=== PATIENT | male | born 1930 | race Caucasian/White ===

== ENCOUNTER 2017-02-12 18:15 | Inpatient (IN) | payer MEDICARE ==
[~2017-02-12] VITALS: Ht 177.8 cm; Wt 71.3 kg
[~2017-02-12 18:15] MED LIST: ACET-2766 PO; ASPI-973 PO; CHOL100045 PO; DILT180C66 PO; DOCU-41 PO; ISOS60TA2 PO; LANS30CA PO; MULT-1073 PO; NITR0.4T SL; POLY17PO23 PO; POLY17PO6 PO; PRAV10TA2 PO; PRD5T PO; RANO500T3 PO; TAMS0.4C29 PO; TICA90TA PO
[2017-02-12 18:20] VITALS: BP 115/71; PULSE 104; RESP 24; O2SAT 96
--- NOTE | 2017-02-12 19:04 | ED.REPORT ---
HPI-Chest Pain 40 and Over Date of Service Feb 12, 2017 ED Provider: Chris Urrutia MD Pt is an 86 year old male with a hx of CAD who presents to the ED with concerns for occasional shortness or breath and intermittent chest heaviness. He reports that he had 2 MIs, in December 2015, and January 2016, with STENTs placed. 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 He began to notice that he was having a difficult time catching his breath while laying down, as well perspiring easily, onset one month ago. Pt states that his rig site engineer was notified of his canceled stress test, and suggested that he come to the emergency room. He reports that he has been experiencing daily episodes of chest heaviness, associated with shortness of breath, alleviated with nitroglycerin. He denies any fevers, cough, vomiting, diarrhea or any other symptoms. Nursing Notes Stated Complaint: CHEST PAIN, SHORTNESS OF BREATH Chief Complaint: Chest Pain Nursing Notes Reviewed: Yes Allergies: Coded Allergies: latex (Verified Allergy, Intermediate, 01/28/16) Scheduled Aspirin (Aspirin) 81 Mg Tablet 81 MG PO DAILY Cholecalciferol (Vitamin D3) (Vitamin D3) 1,000 Unit Tab.chew 1,000 UNIT PO DAILY Clopidogrel (Clopidogrel) 75 Mg Tablet 75 MG PO DAILY Docusate Sodium (Colace) 100 Mg Capsule 200 MG PO BID Garlic (Garlic) 1,000 Mg Capsule 1,000 MG PO DAILY Isosorbide MN ER (Isosorbide MN ER) 120 Mg Tab.er.24h 120 MG PO QAM Lisinopril (Lisinopril) 10 Mg Tablet 10 MG PO DAILY Multivits-Min/FA/Lycopene/Lut (Centrum Silver Tablet) 1 Each Tablet 1 EACH PO DAILY Prednisone (PredniSONE) 5 Mg Tab 5 MG PO DAILY Sennosides (Senna) 8.6 Mg Tablet 17.2 MG PO HS Tamsulosin ER (Tamsulosin ER) 0.4 Mg Cap.er.24h 0.4 MG PO DAILY Vit C/E/Zn/Coppr/Lutein/Zeaxan (Preservision Areds 2 Softgel) 1 Each Capsule 1 EACH PO BID Scheduled PRN Lansoprazole ODT (Prevacid ODT) 15 Mg Tablet 15 MG PO DAILY PRN PRN For Indigestion Nitroglycerin SL (Nitrostat) 0.4 Mg Tab.subl 0.4 MG SL Q5MIN PRN PRN For Pain General Time Seen by MD: 19:00 Chief Complaint Chest pain, Shortness of breath Hx Obtained From: Patient, Spouse Arrived By: Walk-in Sudden in Onset?: No Symptom Duration: Intermittent Location: : Chest left Quality: Heaviness Severity: Current: No pain currently Severity: Maximum: Moderate Similar Sx Previous: Yes Past Medical History 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 Bennett PCP: Dr. Reyna Stent placement: Dr. Alexa Pablo at [facility] Past Medical History Coronary artery disease including occluded RCA, and high-grade stenosis to a small medium sized, rating his artery, mild disease in the LAD-in 2010, not amenable to percutaneous management at that time, on medical management History of SVT Hyperlipidemia Hypertension Chronic anemia History of chronic polymyalgia rheumatica, on steroids, low dose 1.25/day Reports: Coronary artery disease, GERD, Hypertension Reports: Atrial fibrillation Past Surgical History Total left knee replacement Cardiac catheterization in 2010 Hemorrhoidectomy TURP Cardiac stents Reports: Angioplasty Family History Reports: Coronary artery disease Smoking History Former Smoker Social History Alcohol Use: In recovery Drug Use: Denies drug use Ambulatory Status Walker Review of Systems Constitutional: Denies: Chills, Fever, Malaise, Weakness - generalized Respiratory: Reports: Non-productive cough, Shortness of breath, Denies: Wheezing Cardiovascular: Reports: Chest pain, Denies: Syncope GI: Denies: Abdominal pain, Constipation, Diarrhea, Nausea, Vomiting Musculoskeletal: Denies: Back pain, Extremity pain, Neck pain Skin: Reports Diaphoresis Neurologic: Denies: Change LOC, Dizziness, Headache, Syncope, Weakness Complete sys rev & neg: except as marked. Physical Exam Initial Vital Signs Vital Signs (First) Date Time Temp Pulse Resp B/P Pulse Ox O2 Delivery O2 Flow Rate FiO2 02/12/17 18:20 37.0 104 24 115/71 96 02/12/17 20:21 Room Air Initial VS: Reviewed Head / Eyes: Atraumatic, Normocephalic, PERRL ENT: Mucous membranes moist, Conjunctiva normal, No scleral icterus Back: No CVA tenderness Skin: Warm, Dry, No cyanosis General/Constitutional: Awake, Alert, Well appearing, Well developed Respiratory / Chest: Atraumatic, Breath sounds NL, Breath sounds = bilat, No respiratory distress Cardiovascular: Heart rate NL, Regular rhythm, Heart sounds NL, No gallop, No murmurs, No rubs No lower extremity edema Abdomen: Atraumatic, Soft, Non-tender Interpretation & Diagnostics Lab Results Interpretation Result Diagram: 02/12/17191402/12/171914 Test 02/12/17 19:15 02/12/17 20:39 White Blood Count 6.1th/mm3 (3.8-10.1) Red Blood Count 4.31mil/mm3 (4.40-5.80) Hemoglobin 12.5g/dL (13.8-17.2) Hematocrit 37.4% (41.0-50.0) Mean Corpuscular Volume 86.8fL (81-100) Mean Corpuscular Hemoglobin 29.0pg (27.0-35.0) Mean Corpuscular Hemoglobin Concent 33.4% (32.0-37.0) Red Cell Distribution Width 15.0% (12.3-15.4) Platelet Count 167bil/L (150-400) Neutrophils (%) (Auto) 73.3% (40-74) Lymphocytes (%) (Auto) 13.9% (14-46) Monocytes (%) (Auto) 11.6% (4-12) Eosinophils (%) (Auto) 0.7% (0-5) Basophils (%) (Auto) 0.2% (0-3) Prothrombin Time 11.2sec (8.1-12.5) Prothromb Time International Ratio 1.05ratio Activated Partial Thromboplast Time 27.8sec (22.8-33.0) D-Dimer 1.05mg/L FEU (<0.50) Sodium Level 135mEq/L (134-144) Potassium Level 4.5mEq/L (3.5-5.2) Chloride Level 103mEq/L (97-108) Carbon Dioxide Level 18mmol/L (18-29) Blood Urea Nitrogen 29mg/dL (8-27) Creatinine 1.17mg/dL (0.76-1.27) Estimat Glomerular Filtration Rate 63mL/min (>59) Glucose Level 112mg/dL (60-99) Calcium Level 9.4mg/dL (8.5-10.1) Magnesium Level 2.2mg/dL (1.6-2.6) Total Bilirubin 0.3mg/dL (0.0-1.2) Aspartate Amino Transf (AST/SGOT) 31U/L (0-50) Alanine Aminotransferase (ALT/SGPT) 36U/L (0-44) Alkaline Phosphatase 73U/L (25-160) Troponin T 0.023ug/L (0.0-0.011) Pro-B-Type Natriuretic Peptide 4801pg/mL (0-486) Total Protein 6.7g/dL (6.4-8.4) Albumin 3.9g/dL (3.4-5.0) Thyroid Stimulating Hormone (TSH) 1.350uIU/mL (0.450-4.500) Hold Urine Received (Received) Lab Results Interpretation: Angiography CT: IMPRESSION: 1. No evidence for central pulmonary embolism. Prominent main pulmonary artery would be consistent with pulmonary arterial hypertension. 2. Small bilateral dependent pleural effusions are of uncertain etiology. 3. Moderate retrocardiac hiatal hernia as before. 4. Incidental hepatic remote granulomatous disease, as well as 1.7 cm anterolateral right renal cortical simple cyst. Dictated by: Ketan Manuel M.D. on 02/12/2017 at 21:07 ECG Interpretation ECG Interpretation: SR - 90 Q wave in V1-V2, unchanged from prior No ST elevation No other STT changes Time: 19:21 Interpreted by: ED physician X-Ray Chest Interpretation Chest Xray Interpretation: IMPRESSION: No acute cardiopulmonary disease. Moderate retrocardiac hiatal hernia. Dictated by: Ketan Manuel M.D. on 02/12/2017 at 19:38 Interpretation / Wet Read by: Interpret - Radiologist Re-Eval/Medical Decision Med Decision/Clinical Course 86-year-old male history of CAD with stents sent in by rig site engineer for orthopnea and intermittent chest pain for the past month. Patient reports chest pain at rest that relieves with nitroglycerin. Vital signs are stable. His troponins are mildly elevated. He has a history of elevated troponins in the past. Denies any chest pain at this time. His d-dimer is elevated CT anterior chest is pending. His BNP is elevated. I suspect he has CHF causing his orthopnea. I suspect he has likely unstable angina. I discussed with cardiology Dr. Bennett who is his primary rig site engineer who recommends admission, diuresis, heparin drip in preparation for stress test likely on Wednesday. Source of Hx: Old records Time of Eval: 20:38 Re-Evaluation/Progress Note: Informed of the need for CT scan, and admission. All questions are addressed. Consultation #1: Referral / Consult Name: Alexis Bennett MD Consulted With: Cardiology Call Returned at: 20:31 Research Methods Instructor: Will see patient, Agrees with eval, Agrees with plan Note: Suggest a heparin drip, diurese him, and get a stress test on wednesday. No transfer to at this time. Consultation #2: Referral / Consult Name: Hien Luna DO Consulted With: Hospitalist Call Returned at: 21:04 Research Methods Instructor: Will see patient, Agrees with plan, Accepts admit Counseled Regarding: Diagnosis, Lab results, Need for admission Discharge & Departure Primary Impression: Unstable angina Additional Impressions: CHF exacerbation Chest pain Disposition: ADMITTED TO HOSPITAL Discharge Condition All VS Reviewed: Yes Condition: Stable Referrals: Sera Reyna MD (PCP) Crit Care Except Billable Proc Time Spent: 30-74 minutes (40 minutes) Services Performed: Patient management by me, Time spent at bedside, Reviewing test results, Reviewing imaging, Discussing patient care, Documentation in record, Time with fam/surrogate Scribe Attestation Portions of this note were transcribed by Yudelka Phoenix. I, Dr. Urrutia personally performed the history, physical exam and medical decision-making; I reviewed and confirmed the accuracy of the information in the transcribed note. Signed by:Chato Dang, 02/12/2017 [Time]. copies to: Sera Reyna MD, Ben M MD Feb 12, 2017 19:04 [facility] [place] Feb 12, 2017 19:13
[2017-02-12 19:29] LABS: BASOPHILS % (AUTO) 0.2 % (0-3); EOSINOPHILS % (AUTO) 0.7 % (0-5); MONOCYTES % (AUTO) 11.6 % (4-12); Mean Corpuscular Volume 86.8 fL (81-100); NEUTROPHILS % (AUTO) 73.3 % (40-74); Platelet Count 167 bil/L (150-400)
--- NOTE | 2017-02-12 19:41 | DRSVH ---
PROCEDURE: X-RAY CHEST ONE VIEW, PORTABLE ([id number]) INDICATIONS: 86 year-old male with chest pain and shortness of breath. TECHNIQUE: One view of the chest was acquired. COMPARISON: [facility], CR, XR CHEST 1VW (PORTABLE), 01/28/2016, 12:15. [facility], CR, XR CHEST 1VW (PORTABLE), 01/15/2016, 15:54. [facility], CR, XR CHEST 1VW (POR TABLE), 12/29/2015, 7:15. FINDINGS: Surgical changes and devices: None. Lungs and pleura: No pleural effusions or pneumothorax. Lungs are clear. Mediastinum: Moderate hiatal hernia is again noted. Heart size is normal. There is aortic atheroscler osis. Bones and chest wall: No suspicious bony lesions. Overlying soft tissues appear unremarkable. IMPRESSION: No acute cardiopulmonary disease. Moderate retrocardiac hiatal hernia. Dictated by: Ketan Manuel M.D. on 02/12/2017 at 19:38 Approved by: Ketan Manuel M.D. on 02/12/2017 at 19:40
[2017-02-12 19:51] LABS: D-Dimer 1.05 mg/L FEU (<0.50); INR 1.05 ratio
[2017-02-12 19:54] LABS: TROPONIN T 0.023 ug/L (0.0-0.011)
[2017-02-12 20:05] LABS: Magnesium 2.2 mg/dL (1.6-2.6)
[2017-02-12 20:21] VITALS: BP 103/56; PULSE 77; RESP 20; O2SAT 95
[2017-02-12] MEDS ORDERED: CLOP75TA3 PO (20:26)
[2017-02-12] MEDS ORDERED: SENN-133 PO (20:26)
[2017-02-12] MEDS ORDERED: CHOL10008 PO (20:26)
[2017-02-12] MEDS ORDERED: VIT1CAPS46 PO (20:26)
[2017-02-12] MEDS ORDERED: GARL10002 PO (20:26)
[2017-02-12] MEDS ORDERED: ISOS120T6 PO (20:29)
[2017-02-12] MEDS ORDERED: LISI10TA PO (20:29)
[2017-02-12] MEDS ORDERED: LANS15TA3 PO (20:30)
[2017-02-12] MEDS ORDERED: CLOP75TA28 PO (20:31)
[2017-02-12] MEDS ORDERED: Heparin 25K Unit/500mL 0.45 NS 25,000 UNIT in IV Premix 1 EACH IV ONE (20:35)
[2017-02-12] MEDS ORDERED: Heparin 5,000 Unit/mL Inj IVPUSH ONE (20:35)
[2017-02-12] MEDS ORDERED: Furosemide 10 mg/mL 4 mL Inj IVPUSH ONE (20:35)
--- NOTE | 2017-02-12 21:16 | DRSVH ---
PROCEDURE: CT ANGIO CHEST PULMONARY EMBOLISM ([id number]) INDICATIONS: 86 year-old male with chest pain elevated d-dimer level. TECHNIQUE: After the administration of intravenous contrast, 2 mm thick sections acquired from the pulmonary api [place] to the posterior costophrenic angles. 3-dimensional maximum intensity projection (MIP) coronal a nd sagittal reformats were then acquired through the thorax. For radiation dose reduction, the follo wing was used: automated exposure control, adjustment of mA and/or kV according to patient size. COMPARISON: [facility], CR, XR CHEST 1VW (PORTABLE), 02/12/2017, 19:17. FINDINGS: Image quality: Excellent. Pulmonary arteries: Pulmonary arteries demonstrate no intraluminal filling defects to suggest centra l pulmonary embolism. Main pulmonary artery is prominent in caliber at 3.3 cm diameter. Lungs and pleura: Small bilateral dependent pleural effusions are present, with bibasilar compressive atelectasis. Aerated lungs otherwise appear clear. No pneumothorax. Central airways appear patent an d normal in caliber. Mediastinum: There is mild cardiomegaly, without pericardial effusion. There is moderate coronary ar jerri atherosclerosis. No mediastinal or hilar adenopathy. Thoracic aorta is normal in caliber and en hancement. Esophagus is normal in caliber, with a moderate hiatal hernia. Bones and chest wall: No suspicious bony lesions. Ribs and thoracic spine appear intact throughout. Thyroid gland is normal in size. No axillary or supraclavicular adenopathy. Abdomen: Scattered punctate hepatic granulomas are present. 1.7 cm anterolateral right renal cortical exophytic simple cyst is incidentally noted. IMPRESSION: 1. No evidence for central pulmonary embolism. Prominent main pulmonary artery would be consistent wi th pulmonary arterial hypertension. 2. Small bilateral dependent pleural effusions are of uncertain etiology. 3. Moderate retrocardiac hiatal hernia as before. 4. Incidental hepatic remote granulomatous disease, as well as 1.7 cm anterolateral right renal corti alirio simple cyst. Dictated by: Ketan Manuel M.D. on 02/12/2017 at 21:07 Approved by: Ketan Manuel M.D. on 02/12/2017 at 21:15
[2017-02-12 21:19] VITALS: BP 102/65; PULSE 77; RESP 20; O2SAT 95
[2017-02-12] MEDS ORDERED: Heparin 5,000 Unit/mL Inj IVPUSH PRN (21:20)
[2017-02-12] MEDS ORDERED: Atropine 1 mg/10 mL (Code) Syringe IVPUSH PRN (21:20)
[2017-02-12] MEDS ORDERED: Heparin 25K Unit/500mL 0.45 NS 25,000 UNIT in IV Premix 1 EACH IV SCH (21:20)
[2017-02-12] MEDS ORDERED: Senna-Docusate 8.6-50 mg Tablet PO PRN (21:20)
[2017-02-12] MEDS ORDERED: Polyethylene Glycol (PEG) 17 Gm Powder PO PRN (21:20)
[2017-02-12 21:27] VITALS: BP 151/66; PULSE 75; RESP 20
[2017-02-12 23:02] VITALS: BP 96/65; PULSE 75; RESP 16; O2SAT 95
--- NOTE | 2017-02-12 23:43 | PCM.HPMED ---
Subjective Date of Service Feb 12, 2017 Primary Provider: Admitting Physician: Hien Luna DO Primary Care Physician: Sera Reyna MD Attending Physician: Hien Luna DO Admit Status: From the Emergency Department, Full Admit, [facility] Telemetry Chief Complaint: Orthopnea. . History of Present Illness: Nayan Nuñez is an 86-year-old male with past medical history significant for CAD status post stenting 4, hypertension, hyperlipidemia, moderate calcific aortic stenosis who presented to [facility] emergency Department at the direction of his knife changer Dr. Bennett for concerns regarding orthopnea and worsening shortness of breath. The patient reports that he had 2 MIs, in December 2015, and January 2016, with stenting 4. He continued to have unstable angina after recent stenting and saw Dr. Bennett and 10/2016, and had a stress test scheduled for 02/15/2017. He reports that he received a reminder phone call with instructions regarding his upcoming stress test where he relayed that he would likely be unable to have the test performed as he is unable to lie flat. As a result, Dr. Bennett recommended that the patient go to the emergency department and be evaluated for CHF, diuresed, and started on a cardiac heparin drip. The patient reports that he has had dyspnea on exertion and increasing orthopnea over the last 1 month. He occasionally has shortness of breath at rest. He also has accompanying paroxysmal nocturnal dyspnea, chronic productive cough of white sputum, diaphoresis, and mild lower extremity edema that has not worsened. He reports that he has been experiencing daily episodes of chest heaviness with associated shortness of breath that is alleviated with nitroglycerin. Of note, he has also noticed mid back/subscapular pain 1-2 weeks. He denies headache, acute vision changes, sore throat, chest pain, shortness of breath, abdominal pain, nausea, vomiting, dysuria or diarrhea. He endorses chronic constipation, chronic postnasal drip, intermittent acid reflux , and occasional dysphagia. The patient had some conversational dyspnea during the beginning of our interview after going to the bathroom. Vital signs in the ED: Temperature 37.0. Pulse 104. Respiratory rate 24. Blood pressure 115/71. Pulse ox 96% on room air. He was given in the ED furosemide IV 40 mg 1 and started on cardiac heparin drip at Dr. Bennett's recommendation. PCP is Dr. Reyna. Ditching Machine Engineer is Dr. Bennett. . Review of Systems: A comprehensive review of systems was conducted with the patient and found to be negative except as above in the History of Present Illness. . Allergies Coded Allergies: latex (Verified Allergy, Intermediate, 01/28/16) Home Medications Aspirin 81 mg daily. Clopidogrel 75 mg daily. Colace 200 mg twice a day. Garlic 1000 mg daily. Isosorbide mononitrate 60 mg daily. Lansoprazole 15 mg daily as needed for acid reflux. Lisinopril 10 mg daily. Multivitamin daily. Nitroglycerin 0.4 mg sublingual every 5 minutes as needed for chest pain. Prednisone 5 mg daily. Senna 17.2 mg daily at bedtime. Tamsulosin 0.4 mg daily. Preservision 1 tablet twice a day. Vitamin D3 1000 units daily. . PMH 1. Coronary artery disease status post stenting x 4 (RCA and ramus intermedius) . 2. History of SVT. 3. Hyperlipidemia. 4. Hypertension. 5. Chronic iron deficiency anemia. 6. Polymyalgia rheumatica on prednisone. 7. GERD. 8. Paroxysmal atrial fibrillation. 9. Moderate calcific aortic stenosis valve area 1.1 cm2. 10. Chronic constipation. 11. Internal hemorrhoids. 12. Macular degeneration. . Surgical History 1. Total left knee replacement. 2. Cardiac catheterization in 2010. 3. Hemorrhoidectomy. 4. TURP. 5. Cardiac stent placement by Dr. Alexa Pablo at [facility] 6. Cardiac Angioplasty. . Family History Father who of DC at 51 years old. Mother who of unknown cancer in her 80's. Sister who is healthy in her 90's. Two brother's who of heart disease and irregular heart beat in his 80's. . Social History Hx Alcohol Use: Yes (occasional glass of wine or a beer) Hx Substance Use: No Hx Tobacco Use: Yes (1/2 PPD x 20 years, quit in 1967) Smoking Status: Former Smoker Additional Information He has been for 65 years. He has one daughter and one son. He is a and was in the [employer] x 4 years. He worked in the [employer] business. . Exam Vital Signs Vital Sign - Last Date Time Temp Pulse Resp B/P Pulse Ox O2 Delivery O2 Flow Rate FiO2 02/12/17 21:27 37.4 75 20 151/66 Room Air 02/12/17 21:19 95 Exam General: Elderly gentleman lying in bed and in no acute distress, well-developed , well-nourished, appropriately interactive HEENT: Normocephalic, atraumatic. External ears without defect. Pupils equal, round, and reactive to light. Anicteric sclerae, moist conjunctivae, and no lid lag. Oropharynx free of erythema and cobble stoning with moist mucosa. Neck: Supple with full range of motion. No jugular venous distension. No bruits. No lymphadenopathy or thyromegaly. Cardiovascular: Heart sounds distant, regular rate and rhythm with soft systolic murmur at LUSB. No rubs or gallops appreciated. Pulmonary: Clear to auscultation bilaterally with fine crackles at bases bilaterally. No wheezes or rhonchi. Normal respiratory effort with no use of accessory muscles. Abdomen: Soft, nontender, nondistended, bowel sounds present. No hepatosplenomegaly or masses appreciated. Extremities: No clubbing or cyanosis. Mild pitting edema bilaterally to mid pretibial area. Skin: Normal temperature, turgor, and texture; no rash, ulcers, or subcutaneous nodules appreciated. Neurological: Cranial nerves grossly intact. Normal muscle strength, tone, and bulk. Reflexes, coordination, and sensory function within normal limits. Known gait impairment and uses an FWW. Psychiatric: Normal mood and affect. Alert and oriented to person, place, and time. . Lab and Diagnostics Labs Item Value Date Time Prothrombin Time 11.2 sec 02/12/171914 Prothromb Time International Ratio 1.05 ratio 02/12/171914 Activated Partial Thromboplast Time 27.8 sec 02/12/171914 D-Dimer 1.05 mg/L FEU H 02/12/171914 Item Value Date Time Calcium Level 9.4 mg/dL 02/12/171914 Magnesium Level 2.2 mg/dL 02/12/171914 Total Bilirubin 0.3 mg/dL 02/12/171914 Aspartate Amino Transf (AST/SGOT) 31 U/L 02/12/171914 Alanine Aminotransferase (ALT/SGPT) 36 U/L 02/12/171914 Alkaline Phosphatase 73 U/L 02/12/171914 Troponin T 0.023 ug/L H 02/12/171914 Pro-B-Type Natriuretic Peptide 4801 pg/mL H 02/12/171914 Total Protein 6.7 g/dL 02/12/171914 Albumin 3.9 g/dL 02/12/171914 Result Diagram: 02/12/17191402/12/171914 X-Rays, CTs and MRIs X-RAY CHEST ONE VIEW, PORTABLE IMPRESSION: No acute cardiopulmonary disease. Moderate retrocardiac hiatal hernia. Dictated by: Ketan Manuel M.D. on 02/12/2017 at 19:38 CT ANGIO CHEST PULMONARY EMBOLISM IMPRESSION: 1. No evidence for central pulmonary embolism. Prominent main pulmonary artery would be consistent with pulmonary arterial hypertension. 2. Small bilateral dependent pleural effusions are of uncertain etiology. 3. Moderate retrocardiac hiatal hernia as before. 4. Incidental hepatic remote granulomatous disease, as well as 1.7 cm anterolateral right renal cortical simple cyst. Dictated by: Ketan Manuel M.D. on 02/12/2017 at 21:07 . 12-lead ECG EKG: Sinus rhythm, heart rate 90, borderline normal axis, IVCD, otherwise normal intervals, poor R-wave progression, probable LBBB, Q waves in leads V1-2 , no acute ischemic changes such as ST elevation or depression. . Cardiac Echo Impressions Previous Echocardiogram Interpretation Summary 12/31/2015: 1) Upper normal left ventricular size wtih low normal function (EF about 50%). 2) Hypokinesis of the posterolateral wall, mid lateral wall, and basal inferior wall. 3) Normal right ventricular size and function. 4) Moderate calcific aortic stenosis. (mean gradient 16mmHg, valve area 1.1cm2). 5) No prior Echo available for comparison. Reading Physician:PM . Assessment & Plan Nayan Nuñez is an 86-year-old male with past medical history significant for CAD status post stenting 4, hypertension, hyperlipidemia, moderate calcific aortic stenosis who presented to [facility] emergency Department at the direction of his knife changer Dr. Bennett for concerns regarding orthopnea and worsening shortness of breath. 1. Acute new onset congestive heart failure, present on admission. Active. - The patient presented with dyspnea on exertion and worsening orthopnea x 1 month. - CTA demonstrated no evidence for central pulmonary embolism but prominent main pulmonary artery consistent with pulmonary arterial hypertension and small bilateral dependent pleural effusions, as above. - Chest x-ray read as no acute cardiopulmonary findings, however, appears to be mild cephalization consistent with pulmonary edema (reviewed by admitting team on admission) - Ordered echocardiogram to asses for CHF or worsening valvular disease as he does have history of moderate calcific aortic stenosis valve area 1.1 cm2. - EKG demonstrated sinus rhythm without signs of ischemia (reviewed by admitting team on admission)s - Initial troponin slightly elevated at 0.023. Repeat serial troponins x 3. - BNP 4801. - Continue diuresis with Lasix IV 40 mg daily. Transition to BID if daily tolerated depending on I&Os - Continue lisinopril 10 mg daily. - Ordered daily standing weights, strict I&O's, and 2 L fluid restriction. If patient has new onset CHF will need to be provided CHF teaching. - Consider starting a beta neha once CHF stabilizes 2. Unstable angina, not present on admission. Active. - Cardiac risk factors include: Previous DC, CAD, hypertension, hyperlipidemia, gender, age, former smoker. - Initial troponin slightly elevated at 0.023. Repeat serial troponins x 3. - Continue to monitor on telemetry. - Continue Isosorbide mononitrate 60 mg daily and dual antiplatelet therapy. - Ordered nitroglycerin and morphine as needed for chest pain. - Ordered EKG PRN for chest pain. - Started cardiac heparing gtt at recommendation of the patient's knife changer Dr. Bennett. - Ordered nuclear medicine stress test for 02/15/2017at recommendation of the patient's knife changer Dr. Bennett. Chronic problems: 3. Coronary artery disease status post stenting, present on admission. Presumed stable. - Continue dual antiplatelet therapy with aspirin 81 mg daily and clopidogrel 75 mg daily. 4. Hyperlipidemia, present on admission. Stable. - Patient is intolerant of statins. 5. Hypertension, present on admission. Stable. - Continue lisinopril 10 mg daily. 6. Chronic iron deficiency anemia, present on admission. Stable. - History of iron deficiency anemia and no longer on supplementation. - Encouraged the patient to eat green leafy vegetables and protein. - Patient is hemodynamically stable and has no acute signs of bleeding. - Monitor H&H daily. 7. Polymyalgia rheumatica, present on admission. Stable. - Continue prednisone 5 mg daily. 8. GERD, present on admission. Stable. - Occassionally takes PPI and recommended he stop due to increased risk of CV disease. Ordered famotidine 20 mg BID as needed for dyspepsia. - Patient has occasional dysphagia and ordered speech therapy evaluation. If etiology is lower esophageal dysphagia may need to be evaluated by GI as an outpatient. 9. Paroxysmal atrial fibrillation, not present on admission. Stable. - Continue aspirin 81 mg daily and clopidogrel 75 mg daily. 10. Chronic constipation, present on admission. Stable. - Continue Colace 200 mg twice a day and senna 17.2 mg daily at bedtime. 11. BPH, present on admission. Stable. - Continue tamsulosin 0.4 mg daily. PRN antiemetics: Zofran and Maalox. PRN bowel regimen: Senna and MiraLAX. PRN analgesics: Tylenol, nitroglycerin, and morphine. Patient is admitted under inpatient status with expected length of stay greater than 2 midnights due to severity of presenting symptoms, risk of adverse event, and complexity of treatment plan. . VTE Prophylaxis: Other (cardiac heparin gtt) Resuscitation Status: CPR: Attempt Resuscitation Attending Statement The patient was seen and examined together with Dr. Oneil on 02/12/2017 and I agree with the history, exam and plan as outlined in the note above. copies to: Alexis Bennett MD; Sera Reyna MD, [place] M DO Feb 12, 2017 21:34 Hien Luna DO Feb 13, 2017 02:59
[2017-02-12] MEDS ORDERED: Isosorbide Mononitrate 60 mg ER24 Tablet PO SCH (23:55)
[2017-02-13] VITALS (8 sets, daily range): BP systolic 90–113; BP diastolic 61–74; PULSE 55–87; RESP 16–18; O2SAT 94–99
[2017-02-13] MEDS: Sodium Chloride LOK Flush 10 mL Syringe IVFLUSH SCH ×3 (00:30→16:30)
[2017-02-13 03:41] LABS: BASOPHILS % (AUTO) 0.1 % (0-3); EOSINOPHILS % (AUTO) 3.2 % (0-5); Mean Corpuscular Hemoglobin 29.1 pg (27.0-35.0); Mean Corpuscular Volume 86.6 fL (81-100); NEUTROPHILS % (AUTO) 58.1 % (40-74); Platelet Count 174 bil/L (150-400)
[2017-02-13 04:09] LABS: TROPONIN T 0.032 ug/L (0.0-0.011)
[2017-02-13 04:23] LABS: Magnesium 2.2 mg/dL (1.6-2.6)
[2017-02-13 04:38] LABS: APPEARANCE,URINE CLEAR (CLEAR,HAZY); COLOR,URINE YELLOW (YELLOW); OCCULT BLOOD,URINE NEGATIVE (NEGATIVE); UROBILINOGEN,URINE NORMAL (NORMAL)
--- NOTE | 2017-02-13 07:48 | NUR ---
Admit to [facility] Pt. received from ED @ 2214, to room 2026. Arrived via gurney, ambulated with assist to bathroom. A/Ox3 denies pain or shortness of breath. Up to BSC encouraged to use calllight for assistance, indicates has hx. of urinary frequency. Heparin gtt infusing @ 1000u/hr. VSS. SPo2 96% on RA Tele: SR in 100's. at bedside to kassie, plan for ETT on Wednesday. Rested quietly. Report given to on coming RN.
[2017-02-13] MEDS ORDERED: Furosemide 10 mg/mL 4 mL Inj IVPUSH SCH (08:30)
[2017-02-13] MEDS: predniSONE 5 mg Tablet PO SCH (08:47)
--- NOTE | 2017-02-13 09:14 | PCM.PNMED ---
Subjective Date of Service Feb 13, 2017 Subjective Nayan Nuñez is an 86-year-old male with past medical history significant for CAD status post stenting 4, hypertension, hyperlipidemia, moderate calcific aortic stenosis who presented to [facility] emergency Department at the direction of his intranet specialist Dr. Bennett for concerns regarding orthopnea and worsening shortness of breath. Nurse reports patient made frequent trips to bathroom overnight secondary to Lasix, did not get much sleep during the night. Patient seen and examined. Sitting up in bed. Denies any CP, SOB, ABD pain, N/ V/D, headache, or dysuria. Patient has had good urine output and has had a bowel movement in the last 24 hours. ROS reviewed and otherwise negative unless noted above. Exam Vital Signs Vital Sign - Last Date Time Temp Pulse Resp B/P Pulse Ox O2 Delivery O2 Flow Rate FiO2 02/13/17 07:49 36.4 71 18 99/68 99 Room Air Intake and Output 02/12/17 02/12/17 02/13/17 Cumulative From/Thru 15:00 23:00 07:00 02/12/17 18:20 - 02/13/17 06:39 Intake Total 300 ml 300 ml Output Total 1800 ml 1800 ml Balance -1500 ml -1500 ml Intake Oral 300 ml 300 ml Output Urine Total 1800 ml 1800 ml # Voids 2 2 Exam Constitutional: awake, alert and oriented x3. In no acute distress. Head: normocephalic and atraumatic. Eyes: EOMI, no scleral icterus. Heart: regular rate and rhythm. trace peripheral LE edema. Lungs: Clear to auscultation, no wheeze, rales, or rhonchi. ABD: soft, nontender, bowel sounds present throughout. Musculoskeletal: moves all four extremities appropriately. Gross joint deformity on bilateral wrist, secondary to h/o polymyalgia rheumatica. Skin: diffuse ecchymoses on bilateral upper extremities. Warm, dry. Neuro: no focal deficits. CN II-XII intact. Psych: appropriate mood and affect. IVs and Medications Medications Reviewed: Medications were reviewed in detail Medications High Risk IV Medications: Heparin Lab and Diagnostics Item Value Date Time Red Blood Count 4.33 mil/mm3 L 02/13/17 0330 Mean Corpuscular Volume 86.6 fL 02/13/17 0330 Mean Corpuscular Hemoglobin 29.1 pg 02/13/17 033 Mean Corpuscular Hemoglobin Concent 33.6 % 02/13/17329 Red Cell Distribution Width 15.1 % 02/13/17 033 Neutrophils (%) (Auto) 58.1 % 02/13/17 033 Lymphocytes (%) (Auto) 22.3 % 02/13/17 033 Monocytes (%) (Auto) 16.0 % H 02/13/17 033 Eosinophils (%) (Auto) 3.2 % 02/13/17 033 Basophils (%) (Auto) 0.1 % 02/13/17 033 Estimat Glomerular Filtration Rate 60 mL/min 02/13/17329 Calcium Level 8.9 mg/dL 02/13/17329 Magnesium Level 2.2 mg/dL 02/13/17329 Hemoglobin A1c 5.6 % 02/12/171914 Total Creatine Kinase 173 U/L 02/13/17329 Creatine Kinase MB 8.5 ng/mL 02/13/17329 Creatine Kinase MB % 4.9 % 02/13/17329 Troponin T 0.032 ug/L H 02/13/17 033 Troponin T 0.023 ug/L H 02/12/171914 Pro-B-Type Natriuretic Peptide 4801 pg/mL H 02/12/171914 Total Protein 6.7 g/dL 02/12/171914 Albumin 3.9 g/dL 02/12/171914 Triglycerides Level 44 mg/dL 02/13/17329 Cholesterol Level 153 mg/dL 02/13/17329 LDL Cholesterol, Calculated 95.200 mg/dL 02/13/17329 VLDL Cholesterol 8.800 mg/dL 02/13/17329 HDL Cholesterol 49 mg/dL 02/13/17329 Cholesterol/HDL Ratio 3.12 02/13/17329 Thyroid Stimulating Hormone (TSH) 1.350 uIU/mL 02/12/171914 Result Diagram: 02/13/17 03302/13/17329 X-Rays, CTs and MRIs X-RAY CHEST ONE VIEW, PORTABLE IMPRESSION: No acute cardiopulmonary disease. Moderate retrocardiac hiatal hernia. Dictated by: Ketan Manuel M.D. on 02/12/2017 at 19:38 CT ANGIO CHEST PULMONARY EMBOLISM IMPRESSION: 1. No evidence for central pulmonary embolism. Prominent main pulmonary artery would be consistent with pulmonary arterial hypertension. 2. Small bilateral dependent pleural effusions are of uncertain etiology. 3. Moderate retrocardiac hiatal hernia as before. 4. Incidental hepatic remote granulomatous disease, as well as 1.7 cm anterolateral right renal cortical simple cyst. Dictated by: Ketan Manuel M.D. on 02/12/2017 at 21:07 . 12-lead ECG EKG: Sinus rhythm, heart rate 90, borderline normal axis, IVCD, otherwise normal intervals, poor R-wave progression, probable LBBB, Q waves in leads V1-2 , no acute ischemic changes such as ST elevation or depression. . Cardiac Echo Impressions Previous Echocardiogram Interpretation Summary 12/31/2015: 1) Upper normal left ventricular size wtih low normal function (EF about 50%). 2) Hypokinesis of the posterolateral wall, mid lateral wall, and basal inferior wall. 3) Normal right ventricular size and function. 4) Moderate calcific aortic stenosis. (mean gradient 16mmHg, valve area 1.1cm2). 5) No prior Echo available for comparison. Reading Physician:PM . Assessment & Plan Nayan Nuñez is an 86-year-old male with past medical history significant for CAD status post stenting 4, hypertension, hyperlipidemia, moderate calcific aortic stenosis who presented to [facility] emergency Department at the direction of his intranet specialist Dr. Bennett for concerns regarding orthopnea and worsening shortness of breath. Acute new onset congestive heart failure, present on admission. Active. - The patient presented with dyspnea on exertion and worsening orthopnea x 1 month. - CTA demonstrated no evidence for central pulmonary embolism but prominent main pulmonary artery consistent with pulmonary arterial hypertension and small bilateral dependent pleural effusions, as above. - Chest x-ray read as no acute cardiopulmonary findings, however, appears to be mild cephalization consistent with pulmonary edema (reviewed by admitting team on admission) - echocardiogram pending - EKG demonstrated sinus rhythm without signs of ischemia (reviewed by admitting team on admission)s - Repeat serial troponins x 3. - Continue diuresis with Lasix IV 40 mg daily. Transition to BID if daily tolerated depending on I&Os - Continue lisinopril 10 mg daily. - Ordered daily standing weights, strict I&O's, and 2 L fluid restriction. If patient has new onset CHF will need to be provided CHF teaching. - Consider starting a beta neha once CHF stabilizes Unstable angina, not present on admission. Active. - Cardiac risk factors include: Previous MO, CAD, hypertension, hyperlipidemia, gender, age, former smoker. - Repeat serial troponins x 3. - Continue to monitor on telemetry. - Continue Isosorbide mononitrate 60 mg daily and dual antiplatelet therapy. - Continue nitroglycerin and morphine as needed for chest pain. - Continue cardiac heparing gtt at recommendation of the patient's intranet specialist Dr. Bennett. - Ordered nuclear medicine stress test for 02/15/2017at recommendation of the patient's intranet specialist Dr. Bennett. Chronic problems: Coronary artery disease status post stenting, present on admission. Presumed stable. - Continue dual antiplatelet therapy with aspirin 81 mg daily and clopidogrel 75 mg daily. Hyperlipidemia, present on admission. Stable. - Patient is intolerant of statins. Hypertension, present on admission. Stable. - Continue lisinopril 10 mg daily. Chronic iron deficiency anemia, present on admission. Stable. - History of iron deficiency anemia and no longer on supplementation. - Encouraged the patient to eat green leafy vegetables and protein. - Patient is hemodynamically stable and has no acute signs of bleeding. - Monitor H&H daily. Polymyalgia rheumatica, present on admission. Stable. - Continue prednisone 5 mg daily. GERD, present on admission. Stable. - Occassionally takes PPI and recommended he stop due to increased risk of CV disease. -Continue famotidine 20 mg BID as needed for dyspepsia. - Patient has occasional dysphagia and ordered speech therapy evaluation. If etiology is lower esophageal dysphagia may need to be evaluated by GI as an outpatient. Paroxysmal atrial fibrillation, not present on admission. Stable. - Continue aspirin 81 mg daily and clopidogrel 75 mg daily. Chronic constipation, present on admission. Stable. - Continue Colace 200 mg twice a day and senna 17.2 mg daily at bedtime. BPH, present on admission. Stable. - Continue tamsulosin 0.4 mg daily. PRN antiemetics: Zofran and Maalox. PRN bowel regimen: Senna and MiraLAX. PRN analgesics: Tylenol, nitroglycerin, and morphine. Disposition: patient is scheduled for cardiac stress test Wednesday02/15/17, length of stay will be determined by the results of the stress test. Likely discharged in the middle of next week. 02/16 or 02/17. . Pain Evaluation: Adequate Pain Control VTE Prophylaxis: Other (cardiac heparin gtt) Resuscitation Status: CPR: Attempt Resuscitation Attending Statement The patient was seen and examined together with Dr. Kyle on 02/13/2017 and I agree with the history, exam and plan as outlined in the note above. . Donnie Kyle DO Feb 13, 2017 09:14 Mukesh Monique MD Feb 13, 2017 17:38
[2017-02-13 09:33] LABS: TROPONIN T 0.029 ug/L (0.0-0.011)
--- NOTE | 2017-02-13 11:52 | CONS ---
[address] [address] CONSULTATION REPORT PATIENT: VIANEY SMITH : 1930 MR#: [id number] ADMIT: 02/12/2017 JOB ID: [id number] DATE OF SERVICE: 02/13/2017 CARDIOLOGY CONSULTATION: IDENTIFICATION: I have been asked to consult on this 86-year-old male admitted with known coronary artery disease, recent chest discomfort and progressive dyspnea. HISTORY: The patient has a longstanding history of ischemic heart disease dating back to 1990, with a known occluded right coronary artery and a high-grade stenosis in a small obtuse marginal by catheterization in 2010, but was treated medically but was intolerant to beta blockade. He was briefly admitted in 2010 with a supraventricular tachycardia that was successfully treated with diltiazem. He was admitted in December 2015, with chest discomfort and positive troponin, and underwent cardiac catheterization that revealed mild disease in the left main, although significantly calcified, as was the LAD with a 70% ostial stenosis with diffuse disease proximally with an FFR of 0.77. There is significant diffuse disease in the first diagonal, second diagonal and trifurcation marginal, significantly worse since 2010. The left circumflex had a 70% ostial stenosis and fed collaterals to a completely occluded right coronary artery. An echocardiogram suggested an ejection fraction around 50% with inferolateral hypokinesis with moderate aortic stenosis with a valve area estimated at 1.1 cm2. He declined surgical revascularization and was transferred to the [facility], where he underwent a complex PCI to the trifurcation marginal with placement of a drug-eluting stent with good angiographic results. One month later, he underwent PCI to his chronically occluded RCA with placement of a drug-eluting stent, complicated by perforation and pericardial effusion requiring emergent pericardiocentesis but he subsequently did well with improvement in his angina allowing his Ranexa to be stopped. He remained intolerant of statins and has continued to be followed by Dr. Bennett who saw him most recently in October 2016, where he described a 10-day history of atypical nonexertional chest discomfort, different from his previous angina. He was scheduled for a nuclear stress test but this was delayed because of his 's illness and was rescheduled to February 15, 2017, although when contacted for preparation for this, he related a 1-month history of progressive exertional dyspnea, fatigue, but with progression to resting dyspnea, particularly at night preventing him from sleeping flat and sleeping in a chair. With this, he has had occasional mild chest pressure, typically at night but different from his previous angina and denies any return of his previous anginal discomfort. Because it was felt that he could not lie flat and was concerned for heart failure, he was referred to the emergency department, where he was found to be in sinus tach at 104 bpm with ECG revealing an incomplete left bundle branch block but no acute ST-segment abnormalities. His troponin was slightly elevated but his BNP was elevated at 4800. His chest x-ray showed clear lung hutchinson, and a CT angiogram was performed that showed no evidence for any pulmonary embolism, although small pleural effusions were noted. He was subsequently given IV Lasix and was started on IV heparin with significant improvement in his dyspnea after significant diuresis. He does describe occasional episodes of rapid palpitations at night but just lasting a few minutes at a time, generally 1-2 times per week. He has also had some mild postural lightheadedness, again usually at night when he gets up for urination but otherwise none. He has had no recent change in his chronic edema and reports blood pressures at home have generally been in the 110-120 range. CARDIAC RISK FACTORS: Notable for hypertension and a remote history of tobacco use but none since 1967. There is no history of diabetes. He has known hyperlipidemia but has been intolerant to STATINS, although his recent LDL was 95 with an HDL of 49. FAMILY HISTORY: Notable for a father who of cardiac disease at age 51. PAST MEDICAL HISTORY: Notable for polymyalgia rheumatica, chronic iron deficiency anemia, GERD, BPH and macular degeneration that has recently required retinal injections. HOME MEDICATIONS: 1. Aspirin 81 mg daily. 2. Clopidogrel 75 mg daily. 3. Colace 200 mg b.i.d. 4. Imdur 60 mg daily. 5. Lisinopril 10 mg daily. 6. Protonix 15 mg p.r.n. 7. Prednisone 5 mg daily. 8. Tamsulosin 0.4 mg daily. SOCIAL HISTORY: The patient lives in [place] with his . He admits to three alcoholic beverages per day. REVIEW OF SYSTEMS: A complete review is performed and is notable for the absence of any recent fevers or chills, although has had intermittent sweating. He denies any weight change. He has had a recent vision change with his macular degeneration converting to a wet type of process requiring retinal injections. Denies any ENT problem. He has had a recent cough productive of a clear sputum but no hemoptysis. Denies any peptic ulcer disease or GI blood loss. Denies any genitourinary complaints or unusual musculoskeletal complaints. No stroke-like symptoms. No history of any thyroid or bleeding disorder. He denies any unusual anxiety or depression. PHYSICAL EXAMINATION: Pleasant elderly white male, in no distress. HR 70, BP 99/68, O2 saturation 99% on room air. He has had a net diuresis of 1500 mL. His weight has not been recorded today. Skin: Warm and dry with several ecchymoses. HEENT: EOMI without arcus. He has a full set of dentures. Lungs: Clear bilaterally to auscultation and percussion without any rales or wheeze. CV: Nonpalpable PMI with a regular rhythm with occasional premature beat with distant heart tones with a 2/6 systolic ejection murmur at the left upper sternal border but without significant radiation. JVP appears to be around 5 cm. Carotid pulses are faint but no appreciable bruit. Femoral pulses faint on the right, 1+ on the left, again without any bruits. Dorsalis pedis and posterior tibial pulses are nonpalpable. Abdomen: Soft, nondistended, nontender, without any palpable masses or organomegaly. Normal bowel tones are present without any bruits. Extremities: Trace bilateral pitting edema. Neuro: Moves all four extremities. Psych: Awake, alert and oriented. LABORATORY: White count is 7.4 with hematocrit of 37%. BUN is 30 with a creatinine of 1.2. Potassium this morning was 4.2, with a magnesium of 2.2. His initial troponin was 0.23, rising slightly to 0.032 and then 0.029. TSH is 1.35. ELECTROCARDIOGRAM: Shows a probable left bundle branch block with left atrial enlargement but no acute ST-segment abnormalities. IMPRESSION: 1. Dyspnea of uncertain etiology. By his description, it certainly sounds as if he had some fluid retention with pulmonary congestion, although on physical exam and chest x-ray, this is not obvious. Yet, his proBNP was elevated at 4800. He has now been diuresed with symptomatic improvement. An echocardiogram is pending. If this continues to show relatively well-preserved left ventricular systolic function and the absence of any progression of his aortic stenosis, then I think he can proceed with a nuclear myocardial perfusion imaging study. However, if there has been significant decline in his left ventricular systolic function, then this could represent restenosis or progression of his coronary artery disease, and I think catheterization would be indicated. Likewise, if there appears to be echocardiographic evidence of progression of his aortic valve disease, then catheterization will need to be pursued with consideration for transcatheter aortic valve replacement. In the meantime, I would continue him on a low dose of diuretic with close watch of his electrolytes and renal function. 2. Coronary artery disease with atypical chest pain. His discomfort does not sound reflective of his previous angina but certainly could be. Evaluation as above. I would continue with his nitrates for now as long as his blood pressure will allow it. I would continue with aspirin and Plavix given his history of stents. 3. Aortic stenosis. As above. 4. Hyperlipidemia. It is there is documentation of progression of his coronary artery disease, then PCSK9 inhibitor should be considered, given his intolerance to multiple STATINS. 5. History of supraventricular tachycardia. No documented recurrence despite being off of any atrioventricular eusebia blocking agents. Continue to track his heart rate and rhythm. PLAN: 1. Continue with gentle diuresis with close observation of electrolytes and renal function. 2. Obtain an echocardiogram with consideration for proceeding with cardiac catheterization if there has been progression of his aortic valve disease or decline in his left ventricular systolic function. Otherwise, proceed with a nuclear myocardial perfusion study. 3. Continue to track heart rate and rhythm. TIME SPENT: I spent 1 hour and 40 minutes reviewing the patient's medical record, examining the patient and answering his questions. THEE
--- NOTE | 2017-02-13 13:40 | DRSVH ---
[facility] [address] [place] [address] Echocardiogram Report Name: VIANEY SMITH EStfeng Date: 02/13/2017 Height: 70 in Hospital Exam Location: [facility] Weight: 166 lb Gender: Male BSA: 1.9 m2 : 1930 Age: 86 yrs BP: 105/74 mmHg Reason For Study: ORTHOPNEA, DYSPNEA ON EXERTION Ordering Physician: HOSPITALIST [facility] Performed By: Vamshi Briggs Referring Physician: KEEGAN CORREIA Interpretation Summary Left ventricular systolic function is severely reduced with the ejection fraction now estimated to be 15-20%. Compared to the prior exam, left ventricular function has markedly decreased now with severe global hypokinesis that appears worse in the anterior and anteroseptal segments which is new from the previous study. The left ventricle is moderate-severely dilated and is significantly larger compared to the previous study with diastolic parameters suggesting a pseudonormalization pattern, consistent with elevated filling pressures, likely higher compared to the previous study. The right ventricle is mildly dilated and right ventricular systolic function is borderline reduced but similar compared to the previous study. Pulmonary artery pressures cannot be estimated because of the lack of a measurable TR jet velocity. The left atrium is severely dilated and has significantly increased in size since the prior echo exam. There is mild to moderate mitral regurgitation and mild tricuspid regurgitation. Both are more prominent compared to the previous study. The aortic valve is not well visualized but appears to be moderately calcified with moderate but not severely reduced leaflet mobility. Assessment of the severity of aortic stenosis is challenging because of the markedly reduced systolic function but is likely in the moderate to severe range, likely similar to the previous study but consider other methods of assessment. The ascending aorta is moderately enlarged and has increased in size compared to the previous study. Procedure: A two-dimensional transthoracic echocardiogram with color flow and Doppler was performed. The study quality was technically adequate. Comparison is made with the echocardiogram of 12/31/15. Left Ventricle: The left ventricle is moderate-severely dilated. This is significantly larger compared to the previous study. Left ventricular wall thickness is normal. Left ventricular systolic function is severely reduced. The ejection fraction is estimated to be 15-20%. Compared to the prior exam, left ventricular function is markedly decreased. There is severe global hypokinesis that appears worse in the anterior and anteroseptal segments which is new from the previous study. Assessment of diastolic parameters suggests a pseudonormalization pattern, consistent with elevated filling pressures. This is likely higher compared to the previous study. Right Ventricle: The right ventricle is mildly dilated. Right ventricular systolic function is borderline reduced. This is similar compared to the previous study. Atria: The left atrium is severely dilated. The left atrium has significantly increased in size since the prior echo exam. Right atrial size is normal. The interatrial septum is intact with no evidence for an atrial septal defect. Mitral Valve: There is mild to moderate mitral annular calcification. The mitral valve leaflets are slightly calcified. There is mild to moderate mitral regurgitation. The mitral regurgitant jet is eccentrically directed. This is more prominent compared to the previous study. Aortic Valve: The aortic valve is not well visualized. The aortic valve is moderately calcified. Leaflet mobility is moderate to severely reduced. The peak aortic velocity is 1.9 m/sec. The aortic valve mean gradient is 9 mmHg. Assessment of the severity of aortic stenosis is challenging because of the markely reduced systolic function but is likely in the moderate to severe range. There is trace aortic regurgitation. Tricuspid Valve: The tricuspid valve is not well visualized, but is grossly normal. There is mild tricuspid regurgitation. Pulmonary artery pressures cannot be estimated because of the lack of a measurable TR jet velocity. PAP could not be reliably estimated due to angle of eccentric jet. Pulmonic Valve: The pulmonic valve is not well visualized. Great Vessels: The aortic root is normal size. The ascending aorta is moderately enlarged. This is increased in size compared to the previous study. The pulmonary artery is normal size. The IVC is dilated (diameter is greater than 2.1 cm) yet it collapses greater than 50% with a sniff. This suggests a right atrial pressure of 8 mm Hg. Pericardium/ Pleura There is no pericardial effusion. There is no pleural effusion. MMode/2D Measurements & Calculations LVIDd: 6.6 cm RA long axis: 4.3 cm LVOT diam LVIDs: 6.1 cm LA A2 area: 28.4 cm FS: 7.1 % LA A4 area: 28.4 cm RA area: 15.8 cm Ao root diam EPSS: 2.7 cm LA length (vol): 5.8 cm RA vol: 49.7 ml IVSd: 1.0 cm LA vol: 117.9 ml RA : 25.7 ml/m2 asc Aorta LVPWd: 0.73 cm LA vol index Diam: 4.2 cm IVC diam: 3.0 cm EDV(MOD-sp2) LV bryson. diameter/BSA LV sys. diameter/BSA RVD1 (basal) (cm/m^2): 3.4 (cm/m^2): 3.2 : 4.3 cm ESV(MOD-sp2) EF(MOD-sp2) TAPSE: 1.9 cm Doppler Measurements & Calculations Ao V2 max MV E max ton MV E/A: 1.4 MV dec time : 187.3 cm/sec : 62.8 cm/sec Med Peak E' Ton : 0.16 sec Ao max PG MV A max ton : 14.4 mmHg : 43.3 cm/sec E/E' med: 25.9 Ao mean PG Lat Peak E' Ton LVOT Max Ton E/E' lat: 23.9 : 60.3 cm/sec E/e' average: 24.9 JIM(I,D): 1.7 cm sev ratio: 0.33 Ao V2 mean LV V1 max PG JIM indexed to BSA : 141.6 cm/sec (cm^2/m^2): 0.89 Ao V2 VTI: 29.7 cm LV V1 VTI: 9.8 cm JIM(V,D): 1.7 cm2 Reading Physician:01:39 PM
--- NOTE | 2017-02-13 13:49 | NUR ---
Inpatient status from day of admit, MERRITT signed.
--- NOTE | 2017-02-13 16:07 | NUR ---
Evaluation completed. Please go to "Notes" then click on "Assessments and Notes" (bottom left corner of screen). Then select appropriate discipline tab on top of screen.
--- NOTE | 2017-02-13 19:01 | NUR ---
Po Intake pt reported sensation of food caught in his throat after a few bites of dinner. stating "maybe its the rice or something." pt alert, no signs of breathing difficulty. pt attempting multiple times to clear throat. pt stated sensation resolved/able to clear after about 20min. pt opted to eat only jello for dinner. situation endorsed to NOC nurse. care continues.
[2017-02-14] VITALS (11 sets, daily range): BP systolic 91–111; BP diastolic 55–78; PULSE 53–96; RESP 16–20; O2SAT 96–98
[2017-02-14] MEDS: Sodium Chloride LOK Flush 10 mL Syringe IVFLUSH SCH ×4 (00:30→17:43)
[2017-02-14 04:13] LABS: BASOPHILS % (AUTO) 0.3 % (0-3); EOSINOPHILS % (AUTO) 5.1 % (0-5); Mean Corpuscular Volume 86.2 fL (81-100); NEUTROPHILS % (AUTO) 56.6 % (40-74); Platelet Count 161 bil/L (150-400)
[2017-02-14 04:56] LABS: TROPONIN T 0.026 ug/L (0.0-0.011)
[2017-02-14 05:17] LABS: Magnesium 2.1 mg/dL (1.6-2.6)
--- NOTE | 2017-02-14 06:32 | NUR ---
Activity/Swallowing/Rest A/O, up to [facility] independently. Pt. indicated experiencing emesis after eating rice with dinner, further stating it gets stuck and select foods will cause this. Orders reviewed and message sent to Speech Therapy for swallow eval. Pt. rested with eyes closed for extended period. Heparin drip cont, next PTT 1100am NPO after midnight in anticipation of Cardiac Catherization in AM . Indicates no further needs, pain free, VSS. Tele: SR in 60s to 100s with activity.
--- NOTE | 2017-02-14 06:42 | NUR ---
Chestpain/ Arrythmia [employer] advised that pt. experience 24 beat run of v-tach. Pt. assessed and confirmed intermittent chestpain, now resolved. Repeat EKG and Vitals obtained, placed on 2L o2. Notified attending MD (Dr. London).
--- NOTE | 2017-02-14 11:51 | PROG NOTE ---
[address] [address] PROGRESS NOTE PATIENT: VIANEY SMITH : 1930 MR#: [id number] ADMIT: 02/12/2017 JOB ID: [id number] DATE: 02/14/2017 SUBJECTIVE: The patient describes feeling essentially unchanged from yesterday despite moderate diuresis. He has not yet laid flat, although is somewhat reluctant to try to do so because of his previous dyspnea. He has continued to have fleeting episodes of left-sided chest discomfort, but none lasting more than a few seconds. He does relate an episode yesterday of having part of his dinner stick in his throat ultimately requiring him to vomit and remained symptomatic for around 45 minutes, but then resolved. His telemetry overnight revealed a 24 beat run of rapid monomorphic VT this morning around 6 o'clock with rates of around 250 msec. He apparently was symptomatic with that and denies any sense of any presyncope. I reviewed with him the results of his echocardiogram which now shows profound severe LV systolic dysfunction with an EF of 15-20% with a marked decrease since his previous echocardiogram. This appears to be global, although worse in the anterior and anteroseptal regions which are new from the previous exam. The left ventricle is now moderate severely enlarged, larger than previous with evidence of increased filling pressures. The right ventricle is mildly enlarged with borderline reduced systolic function, although this is similar to previous. Pulmonary artery pressures could not be estimated. He had mild to moderate mitral and mild tricuspid regurgitation, both are slightly more prominent than on his previous echocardiogram. While his aortic valve was not well visualized, it appeared to be significantly calcified with moderate, but not severely reduced leaflet mobility. Quantitation of the severity of his aortic stenosis was limited because of his markedly reduced LV systolic function. PHYSICAL EXAMINATION: He appears quite comfortable lying in bed. HR 61. BP 96/65. O2 saturation 97% on 1 L nasal cannula. He has had around 2 L of diuresis since admission and his weight is down 3 kg. Lungs clear. Cardiovascular distant heart tones with a 1/6 systolic ejection murmur. JVP continues to appear to be around 5 cm. Abdomen benign. Extremities were warm without significant edema. LABORATORY: Hematocrit this morning is 37%. Potassium this morning was 4.1 with a BUN of 31 and a creatinine of 1.1, essentially unchanged from previous. Magnesium was 2.1. The troponins have remained mildly elevated, but flat ranging between 0.023 and 0.032. TSH was 1.35. His LDL is 95 with an HDL of 49. IMPRESSION: 1. Congestive heart failure now with documented profound left ventricular systolic dysfunction. While his exam is fairly benign, his echocardiogram suggested increased filling pressures and his symptoms are certainly consistent with pulmonary congestion. Given this, I would continue with diuresis as much as his blood pressure will allow. The etiology of his systolic function deterioration remains unclear, but I am concerned that it could reflect either progression of his ischemic heart disease or progression of his aortic stenosis. On the basis of this, I have recommended proceeding with cardiac catheterization tomorrow to reassess his coronary anatomy to see if there is any opportunity for revascularization as well as a right heart catheterization to reassess filling pressures and to attempt to assess the severity of his aortic valve disease, although this may be limited by his poor cardiac output. He may be a candidate for TAVR if it is felt that his aortic valve disease has progressed. I will consult Dr. Longoria today to discuss further with him, but in the meantime, I would simply continue with low-dose diuretic as there is no further room to increase his beta neha or afterload reduction. If he chooses not to pursue any invasive intervention, then palliative care should be consulted as I suspect that his prognosis is quite poor if there is no opportunity to find a reversible cause of his renal dysfunction. 2. Aortic stenosis. As above. 3. Monomorphic ventricular tachycardia. I will attempt to start him on low-dose metoprolol, although this may be limited by his heart rate and blood pressure. Given his underlying conduction disease, he may benefit from a biventricular pacemaker that would allow the institution of more aggressive beta-blockade and provide some resynchronization therapy that could potentially improve his left ventricular systolic function. 4. Hyperlipidemia. Again, if progression of his coronary disease is documented, then PSK inhibitor should be considered. There is some history of supraventricular tachycardia, no evidence of any recurrence. PLAN: 1. Reddick metoprolol at 12.5 mg b.i.d. 2. Continue with gentle diuresis. 3. Consult Dr. Longoria for consideration of cardiac catheterization, both right and left heart assessment to try to assess for progressive coronary disease and possible progression of his aortic stenosis. 4. Consider a biventricular pacemaker. If he continues to have arrhythmias and his heart rate limits the ability to tolerate beta blockade. I note in the chart now that he has had previous intolerance to beta blockers and therefore I will institute low-dose amiodarone in its place. TIME: I have spent 55 minutes reviewing the patient's medical record discussing his diagnostic studies and their implications.
[2017-02-14] MEDS: predniSONE 5 mg Tablet PO SCH (12:24)
--- NOTE | 2017-02-14 13:54 | NUR ---
Evaluation completed. Please go to "Notes" then click on "Assessments and Notes" (bottom left corner of screen). Then select appropriate discipline tab on top of screen.
--- NOTE | 2017-02-14 14:40 | PCM.PNMED ---
Subjective Date of Service Feb 14, 2017 Subjective Patient denies ongoing chest pain, states that his SOB is more or less at baseline, and is anxious to proceed with clinical course. States that he is otherwise feeling well. Overnight patient had a run of 24 beats of Vtach that was mildly symptomatic. Resolved spontaneously with resolution of symptoms. Comprehensive ROS negative except as listed above. Exam Vital Signs Vital Sign - Last Date Time Temp Pulse Resp B/P Pulse Ox O2 Delivery O2 Flow Rate FiO2 02/14/17 12:22 36.6 70 18 95/55 97 Nasal Cannula 1.00 Intake and Output 02/13/17 02/13/17 02/14/17 Cumulative From/Thru 15:00 23:00 07:00 02/12/17 18:20 - 02/14/17 05:30 Intake Total 1140 ml 449 ml 1889 ml Output Total 800 ml 1400 ml 4000 ml Balance 340 ml -951 ml -2111 ml Intake Oral 983 ml 200 ml 1483 ml IV Total 157 ml 249 ml 406 ml Output Urine Total 800 ml 1400 ml 4000 ml # Voids 2 # Bowel Movements 0 0 Exam Gen: A/O x3 pleasant cooperative elderly gentleman in NAD Neck: Supple, non tender, no JVD HEENT: PERRL, EOMI, no scleral icterus, no conjunctival pallor CV: RRR, soft 2/6 systolic ejection murmur, no rubs or gallops Resp: Lungs CTA BL, no wheezing rales or rhonchi Abd: soft, no rebound guarding masses or tenderness Extr: Mild BL LE pitting edema, no clubbing or cyanosis Neuro: CN 2-12 grossly intact, no focal neurologic deficit Psych: Pleasant and appropriate mood and affect. IVs and Medications Medications Reviewed: Medications were reviewed in detail Lab and Diagnostics Item Value Date Time Red Blood Count 4.35 mil/mm3 L 02/14/17354 Mean Corpuscular Volume 86.2 fL 02/14/17354 Mean Corpuscular Hemoglobin 29.0 pg 02/14/17354 Mean Corpuscular Hemoglobin Concent 33.6 % 02/14/17354 Red Cell Distribution Width 15.2 % 02/14/17354 Neutrophils (%) (Auto) 56.6 % 02/14/17354 Lymphocytes (%) (Auto) 22.8 % 8/20/17 0355 Monocytes (%) (Auto) 15.0 % H 02/14/17 035 Eosinophils (%) (Auto) 5.1 % H 02/14/17354 Basophils (%) (Auto) 0.3 % 02/14/17354 Estimat Glomerular Filtration Rate 69 mL/min 02/14/17354 Calcium Level 8.7 mg/dL 02/14/17354 Magnesium Level 2.1 mg/dL 02/14/17354 Total Bilirubin 0.4 mg/dL 02/14/17354 Aspartate Amino Transf (AST/SGOT) 30 U/L 02/14/17354 Alanine Aminotransferase (ALT/SGPT) 33 U/L 02/14/17354 Alkaline Phosphatase 65 U/L 02/14/17354 Troponin T 0.026 ug/L H 02/14/17354 Total Protein 6.3 g/dL L 02/14/17354 Albumin 3.5 g/dL 02/14/17354 Activated Partial Thromboplast Time 89.5 sec H 02/14/17 1100 Result Diagram: 02/14/1735402/14/17354 X-Rays, CTs and MRIs X-RAY CHEST ONE VIEW, PORTABLE IMPRESSION: No acute cardiopulmonary disease. Moderate retrocardiac hiatal hernia. Dictated by: Ketan Manuel M.D. on 02/12/2017 at 19:38 CT ANGIO CHEST PULMONARY EMBOLISM IMPRESSION: 1. No evidence for central pulmonary embolism. Prominent main pulmonary artery would be consistent with pulmonary arterial hypertension. 2. Small bilateral dependent pleural effusions are of uncertain etiology. 3. Moderate retrocardiac hiatal hernia as before. 4. Incidental hepatic remote granulomatous disease, as well as 1.7 cm anterolateral right renal cortical simple cyst. Dictated by: Ketan Manuel M.D. on 02/12/2017 at 21:07 . 12-lead ECG EKG: Sinus rhythm, heart rate 90, borderline normal axis, IVCD, otherwise normal intervals, poor R-wave progression, probable LBBB, Q waves in leads V1-2 , no acute ischemic changes such as ST elevation or depression. . Cardiac Echo Impressions Previous Echocardiogram Interpretation Summary 12/31/2015: 1) Upper normal left ventricular size wtih low normal function (EF about 50%). 2) Hypokinesis of the posterolateral wall, mid lateral wall, and basal inferior wall. 3) Normal right ventricular size and function. 4) Moderate calcific aortic stenosis. (mean gradient 16mmHg, valve area 1.1cm2). 5) No prior Echo available for comparison. Reading Physician:PM . Assessment & Plan Nayan Nuñez is an 86-year-old male with past medical history significant for CAD status post stenting 4, hypertension, hyperlipidemia, moderate calcific aortic stenosis who presented to [facility] emergency Department at the direction of his machinery erector Dr. Bennett for concerns regarding orthopnea and worsening shortness of breath. Acute new onset congestive heart failure, present on admission. Active. - The patient presented with dyspnea on exertion and worsening orthopnea x 1 month. - CTA demonstrated no evidence for central pulmonary embolism but prominent main pulmonary artery consistent with pulmonary arterial hypertension and small bilateral dependent pleural effusions, as above. - Chest x-ray read as no acute cardiopulmonary findings, however, appears to be mild cephalization consistent with pulmonary edema (reviewed by admitting team on admission) - echocardiogram with EF estimated 15-20%, globally worsened compared to prior examination - EKG demonstrated sinus rhythm without signs of ischemia (reviewed by admitting team on admission)s - Serial troponins elevated but stable - Continue diuresis with Lasix IV 20 mg daily - Continue lisinopril 10 mg daily. - Ordered daily standing weights, strict I&O's, and 2 L fluid restriction. If patient has new onset CHF will need to be provided CHF teaching. - Metoprolol 12.5 BID per cardiology Unstable angina, not present on admission. Active. - Cardiac risk factors include: Previous [place], CAD, hypertension, hyperlipidemia, gender, age, former smoker. - Repeated serial troponins x 3, elevated but stable - Continue to monitor on telemetry. - Continue Isosorbide mononitrate 60 mg daily and dual antiplatelet therapy. - Continue nitroglycerin and morphine as needed for chest pain. - Continue cardiac heparing gtt at recommendation of the patient's machinery erector Dr. Bennett. - Patient will likely undergo Coronary Catheterization tomorrow, NPO after midnight Chronic problems: Coronary artery disease status post stenting, present on admission. Presumed stable. - Continue dual antiplatelet therapy with aspirin 81 mg daily and clopidogrel 75 mg daily. Hyperlipidemia, present on admission. Stable. - Patient is intolerant of statins. - Consider PCSK-9 inhibition post procedure Hypertension, present on admission. Stable. - Continue lisinopril 10 mg daily. Chronic iron deficiency anemia, present on admission. Stable. - History of iron deficiency anemia and no longer on supplementation. - Encouraged the patient to eat green leafy vegetables and protein. - Patient is hemodynamically stable and has no acute signs of bleeding. - Monitor H&H daily. Polymyalgia rheumatica, present on admission. Stable. - Continue prednisone 5 mg daily. GERD, present on admission. Stable. - Occassionally takes PPI and recommended he stop due to increased risk of CV disease. - Continue famotidine 20 mg BID as needed for dyspepsia. - Patient has occasional dysphagia and ordered speech therapy evaluation. If etiology is lower esophageal dysphagia may need to be evaluated by GI as an outpatient. Paroxysmal atrial fibrillation, not present on admission. Stable. - Continue aspirin 81 mg daily and clopidogrel 75 mg daily. Chronic constipation, present on admission. Stable. - Continue Colace 200 mg twice a day and senna 17.2 mg daily at bedtime. BPH, present on admission. Stable. - Continue tamsulosin 0.4 mg daily. PRN antiemetics: Zofran and Maalox. PRN bowel regimen: Senna and MiraLAX. PRN analgesics: Tylenol, nitroglycerin, and morphine. Disposition: Patient will likely undergo catheterization tomorrow, will require at least a further 24 hours of observation post procedure. . Pain Evaluation: Adequate Pain Control GI Prophylaxis: H2 neha VTE Prophylaxis: Other (cardiac heparin gtt) Resuscitation Status: CPR: Attempt Resuscitation Attending Statement The patient was seen and examined together with Dr. Kelly on 02/14/2017 and I agree with the history, exam and plan as outlined in the note above. . Nicolas Kelly DO Feb 14, 2017 14:40 Mukesh Monique MD Feb 14, 2017 15:45
[2017-02-14] MEDS: Alum-Mag Hydrox-Simeth 30 mL Suspension PO PRN (17:45)
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
[2017-02-15] VITALS (22 sets, daily range): BP systolic 86–126; BP diastolic 45–96; PULSE 62–83; RESP 13–24; O2SAT 92–100
--- NOTE | 2017-02-15 00:12 | NUR ---
wrong date entered. HS assessment completed on 02/14/17 (not 02/13/17) Addendum: 02/15/17 at 0013 by JUDITH LIN RN Amended: Links added.
[2017-02-15] MEDS: Sodium Chloride LOK Flush 10 mL Syringe IVFLUSH SCH ×7 (01:09→18:36)
[2017-02-15 03:56] LABS: BASOPHILS % (AUTO) 0.3 % (0-3); EOSINOPHILS % (AUTO) 3.1 % (0-5); Mean Corpuscular Hemoglobin 28.6 pg (27.0-35.0); Mean Corpuscular Volume 86.2 fL (81-100); NEUTROPHILS % (AUTO) 61.4 % (40-74); Platelet Count 165 bil/L (150-400)
[2017-02-15 04:48] LABS: Magnesium 2.2 mg/dL (1.6-2.6); Phosphorus 3.4 mg/dL (2.5-4.9)
--- NOTE | 2017-02-15 04:53 | NUR ---
Nursing, NOC shift Patient is a/o, voices needs via call light. Pleasant and cooperative. SBA mobility w/ FWW, uses BSC for voiding. Skin to buttocks reddened, elbows and heels red, floated. Hep gtt infusing at 975u/19.5mL per hour. PTT @ 0000 64.4 (therapeutic x 2) next draw in AM per protocol. NPO since midnight for cardiac cath in AM. Addendum: 02/15/17 at 0706 by JUDITH LIN RN 0700: call from tele: patient had 5 beats of vtach 110/120's. Patient denies symptoms. Self-transferring to [facility] at this time. Info page sent to . Report to day KATY.
[2017-02-15] MEDS ORDERED: Sodium Bicarb 8.4% Inj 150 MEQ in Dextrose 5% 1,000 ML IV ONE (06:00)
[2017-02-15] MEDS: Ondansetron 2 mg/mL 2 mL Inj IVPUSH PRN (06:01)
[2017-02-15] MEDS: Alum-Mag Hydrox-Simeth 30 mL Suspension PO PRN (06:01)
[2017-02-15] MEDS: Furosemide 10 mg/mL 4 mL Inj IVPUSH SCH (10:02)
[2017-02-15] MEDS: predniSONE 5 mg Tablet PO SCH (10:02)
[2017-02-15] MEDS ORDERED: LORazepam 1 mg Tablet PO ONE (10:25)
[2017-02-15] MEDS ORDERED: Heparin 10,000 Unit/1,000 mL NS Premix IV ONE ×3 (11:08→13:34)
[2017-02-15] MEDS ORDERED: Heparin 1,000 Units/500 mL NS Premix IV ONE ×3 (11:08→13:49)
[2017-02-15] MEDS ORDERED: Nitroglycerin 50,000 mcg/250 mL D5W Premix IV ONE (12:09)
[2017-02-15] MEDS ORDERED: fentaNYL-PF 50 mCg/mL 2 mL Inj ONE (12:09)
--- NOTE | 2017-02-15 15:49 | NUR ---
Arrived in [facility] with Right arterial sheath in place. PT pulses Doppler only - unable to Doppler or palpate DP - Dr Longoria aware. Plan to pull sheath at 1600. Pt unable to void - caudate 2-way juarez placed by Michelle BURNS without difficulty. technical operations vice president here to pull sheath. Family understands plan of care. Planning to go to equipment operator/laborer tomorrow for stent placements.
--- NOTE | 2017-02-15 18:03 | NUR ---
Transferred back to room 2026 post 2 hour recovery following sheath removal. Right arterial and femoral access site is soft and dry at time of D/C.
--- NOTE | 2017-02-15 18:04 | PCM.PNMED ---
Subjective Date of Service Feb 15, 2017 Subjective Subjective: This morning, patient was complaining of feeling panicked, short of breath and nauseated when he lays flat. He states that he feels the nausea starting in his lower abdomen and rising up. He notes that he has had 1 bowel movement this morning and some gas. He received ondansetron and experienced relief for about 2 hours. He notes that he feels anxious about the cath procedure for this afternoon. Overnight events: Patient had 5 beats of vtach 110/120's. Patient denies symptoms. Review of systems: He denies fevers, chills, chest pain, abdominal pain, bowel changes, and dysuria. Exam Vital Signs Vital Sign - Last Date Time Temp Pulse Resp B/P Pulse Ox O2 Delivery O2 Flow Rate FiO2 02/15/17 03:20 36.5 69 18 88/53 94 02/14/17 23:12 Room Air 02/14/17 16:10 1.00 Intake and Output 02/14/17 02/14/17 02/15/17 Cumulative From/Thru 15:00 23:00 07:00 02/12/17 18:20 - 02/15/17 05:16 Intake Total 1305 ml 545 ml 3739 ml Output Total 700 ml 850 ml 5550 ml Balance 605 ml -305 ml -1811 ml Intake Oral 1305 ml 100 ml 2888 ml IV Total 445 ml 851 ml Output Urine Total 700 ml 850 ml 5550 ml # Voids 2 # Bowel Movements 2 2 4 Exam General: Cachectic male Patient is sitting on side of bed, AAOX3, not in acute distress, cooperative and pleasant. HEENT: head normocephalic and atraumatic, PERRLA, EOMI, no scleral icterus, noninjected conjunctiva Neck: neck supple, non-tender, no lymphadenopathy, trachea midline, JVD evident CV: regular rate and rhythm, s1 and s2 heard, no murmur, radial pulses 2+ and equal bilaterally, distant heart sounds, 2/6 systolic ejection murmur, no edema Lungs: Clear to auscultation bilaterally, no wheezes, rales or rhonchi, no increased work of breathing Abdomen: normoactive bowel sounds on 4Q, soft, non-distended, non-tender to palpation, no organomegally, Skin: warm and dry Neuro: Grossly neurologically intact, cranial nerves II through XII intact Psych: Normal mood and affect IVs and Medications IV Fluids 500 mL normal saline given with IV medications Medications Reviewed: Medications were reviewed in detail Medications High risk medications including heparin and clopidogrel Lab and Diagnostics Laboratory Tests Test 02/14/17 23:45 02/15/17 03:45 02/15/17 05:25 Activated Partial Thromboplast Time 64.4sec (22.8-33.0) 83.2sec (22.8-33.0) White Blood Count 7.1th/mm3 (3.8-10.1) Red Blood Count 4.27mil/mm3 (4.40-5.80) Hemoglobin 12.2g/dL (13.8-17.2) Hematocrit 36.8% (41.0-50.0) Mean Corpuscular Volume 86.2fL (81-100) Mean Corpuscular Hemoglobin 28.6pg (27.0-35.0) Mean Corpuscular Hemoglobin Concent 33.2% (32.0-37.0) Red Cell Distribution Width 15.2% (12.3-15.4) Platelet Count 165bil/L (150-400) Neutrophils (%) (Auto) 61.4% (40-74) Lymphocytes (%) (Auto) 21.1% (14-46) Monocytes (%) (Auto) 14.0% (4-12) Eosinophils (%) (Auto) 3.1% (0-5) Basophils (%) (Auto) 0.3% (0-3) Sodium Level 132mEq/L (134-144) Potassium Level 4.7mEq/L (3.5-5.2) Chloride Level 98mEq/L (97-108) Carbon Dioxide Level 19mmol/L (18-29) Blood Urea Nitrogen 30mg/dL (8-27) Creatinine 1.16mg/dL (0.76-1.27) Estimat Glomerular Filtration Rate 63mL/min (>59) Glucose Level 90mg/dL (60-99) Calcium Level 8.5mg/dL (8.5-10.1) Phosphorus Level 3.4mg/dL (2.5-4.9) Magnesium Level 2.2mg/dL (1.6-2.6) Microbiology 02/14/17 Stool Occult Blood (GATITO) - Final, Complete Result Diagram: 02/15/17 0345 02/15/17 0345 X-Rays, CTs and MRIs X-RAY CHEST ONE VIEW, PORTABLE IMPRESSION: No acute cardiopulmonary disease. Moderate retrocardiac hiatal hernia. Dictated by: Ketan Manuel M.D. on 02/12/2017 at 19:38 CT ANGIO CHEST PULMONARY EMBOLISM IMPRESSION: 1. No evidence for central pulmonary embolism. Prominent main pulmonary artery would be consistent with pulmonary arterial hypertension. 2. Small bilateral dependent pleural effusions are of uncertain etiology. 3. Moderate retrocardiac hiatal hernia as before. 4. Incidental hepatic remote granulomatous disease, as well as 1.7 cm anterolateral right renal cortical simple cyst. Dictated by: Ketan Manuel M.D. on 02/12/2017 at 21:07 . 12-lead ECG EKG: Sinus rhythm, heart rate 90, borderline normal axis, IVCD, otherwise normal intervals, poor R-wave progression, probable LBBB, Q waves in leads V1-2 , no acute ischemic changes such as ST elevation or depression. . Cardiac Echo Impressions ECHO on 02/13/17 Interpretation Summary Left ventricular systolic function is severely reduced with the ejection fraction now estimated to be 15-20%. Compared to the prior exam, left ventricular function has markedly decreased now with severe global hypokinesis that appears worse in the anterior and anteroseptal segments which is new from the previous study. The left ventricle is moderate-severely dilated and is significantly larger compared to the previous study with diastolic parameters suggesting a pseudonormalization pattern, consistent with elevated filling pressures, likely higher compared to the previous study. Previous Echocardiogram Interpretation Summary 12/31/2015: 1) Upper normal left ventricular size wtih low normal function (EF about 50%). 2) Hypokinesis of the posterolateral wall, mid lateral wall, and basal inferior wall. 3) Normal right ventricular size and function. 4) Moderate calcific aortic stenosis. (mean gradient 16mmHg, valve area 1.1cm2). 5) No prior Echo available for comparison. Reading Physician:PM . Additional Diagnostics Cardiac Cath on 02/15/17: CONCLUSIONS: 1. CAD--three-vessel CAD including progressive severe subtotal ostial LAD disease; and in-stent restenosis of ramus with 80% mid ramus lesion; and patent AUTOCAD OPERATOR revascularization of ostial RCA with moderate proximal in-stent restenosis (60%). 2. Hemodynamics: Mild pulmonary hypertension; elevated PAW; and elevated LVED with preserved cardiac output. 3. Aortic stenosis--invasive hemodynamics demonstrate no significant aortic gradient. Assessment & Plan Nayan Nuñez is an 86-year-old male with past medical history significant for CAD status post stenting 4, hypertension, hyperlipidemia, moderate calcific aortic stenosis who presented to [facility] emergency Department at the direction of his drywall applicator Dr. Bennett for concerns regarding orthopnea and worsening shortness of breath. Acute new onset congestive heart failure, present on admission. Active. - The patient presented with dyspnea on exertion and worsening orthopnea x 1 month. - CTA demonstrated no evidence for central pulmonary embolism but prominent main pulmonary artery consistent with pulmonary arterial hypertension and small bilateral dependent pleural effusions, as above. - Chest x-ray read as no acute cardiopulmonary findings, however, appears to be mild cephalization consistent with pulmonary edema (reviewed by admitting team on admission) - echocardiogram with EF estimated 15-20%, globally worsened compared to prior examination - EKG demonstrated sinus rhythm without signs of ischemia (reviewed by admitting team on admission)s - Serial troponins elevated but stable - Continue diuresis with Lasix IV 20 mg daily - Hold lisinopril 10 mg daily. - Ordered daily standing weights, strict I&O's, and 2 L fluid restriction. If patient has new onset CHF will need to be provided CHF teaching. - Metoprolol 12.5 BID per cardiology was not instituted due to pulse in the 50s and hypotension Unstable angina with Acute ischemic Cardiomyopathy, present on admission. Active. - Cardiac risk factors include: Previous [place], CAD, hypertension, hyperlipidemia, gender, age, former smoker. - Repeated serial troponins x 3, elevated but stable - Continue to monitor on telemetry. - Continue Isosorbide mononitrate 60 mg daily and dual antiplatelet therapy. - Continue nitroglycerin and morphine as needed for chest pain. - Continue cardiac heparing gtt at recommendation of the patient's drywall applicator Dr. Bennett. - Patient underwent Coronary catheterization today and was found to have CAD-- three-vessel CAD including progressive severe subtotal ostial LAD disease; and in-stent restenosis of ramus with 80% mid ramus lesion; and patent AUTOCAD OPERATOR revascularization of ostial RCA with moderate proximal in-stent restenosis . -Will undergo cath again tomorrow for likely intervention, keep nothing by mouth Chronic problems: Coronary artery disease status post stenting, present on admission. Presumed stable. - Continue dual antiplatelet therapy with aspirin 81 mg daily and clopidogrel 75 mg daily. Hyperlipidemia, present on admission. Stable. - Patient is intolerant of statins. - Consider PCSK-9 inhibition post procedure Hypertension, present on admission. Stable. - Hold lisinopril 10 mg daily due to low bp. Chronic iron deficiency anemia, present on admission. Stable. - History of iron deficiency anemia and no longer on supplementation. - Encouraged the patient to eat green leafy vegetables and protein. - Patient is hemodynamically stable and has no acute signs of bleeding. - Monitor H&H daily. Polymyalgia rheumatica, present on admission. Stable. - Continue prednisone 5 mg daily. GERD, present on admission. Stable. - Occasionally takes PPI and recommended he stop due to increased risk of CV disease. - Continue famotidine 20 mg BID as needed for dyspepsia. - Patient has occasional dysphagia and ordered speech therapy evaluation. If etiology is lower esophageal dysphagia may need to be evaluated by GI as an outpatient. Paroxysmal atrial fibrillation, not present on admission. Stable. - Continue aspirin 81 mg daily and clopidogrel 75 mg daily. Chronic constipation, present on admission. Stable. - Continue Colace 200 mg twice a day and senna 17.2 mg daily at bedtime. BPH, present on admission. Stable. - Continue tamsulosin 0.4 mg daily. PRN antiemetics: Zofran and Maalox. PRN bowel regimen: Senna and MiraLAX. PRN analgesics: Tylenol, nitroglycerin, and morphine. Disposition: Patient will likely undergo catheterization again tomorrow, will require at least a further 24 hours of observation post procedure. . GI Prophylaxis: H2 neha VTE Prophylaxis: Other (cardiac heparin gtt) Resuscitation Status: CPR: Attempt Resuscitation Time spent 25 minutes Attending Statement I have seen and evaluated patient at bedside in addition to directly supervising care provided by Dr Vyas on 02/15/2017. I agree with above documentation. Please note, pt experienced acute situational anxiety prior to procedure, benefitting from therapy with benzodiazepine, Ativan prior to undergoing catheterization with good effect. Amalia Vyas DO Feb 15, 2017 07:47 Sharif Woo DO Feb 16, 2017 07:43
--- NOTE | 2017-02-15 18:54 | NUR ---
Transfer to [facility]. Pt. transferred to [facility] room 2026 at 1755 in stable condition. Denies chest pain, SOB, N/V. Pt. was mildly hypotensive prior to transport. Finishing up 250 cc bolus and follow-up BP is 101/68. HR 65. Tele on. Other vitals stable and pt. is on 1.5 L NC. Complains of very mild discomfort in groin site. Site dressing is clean dry and intact. Soft with palpation. RLE warm with good cap refill.. Pt. is bedrest until 2200 tonight per orders. Family at bedside and educated on bedrest. Cudet juarez catheter in and should stay in per MD orders d/t difficulty in placing. No questions or concerns at this time.
--- NOTE | 2017-02-15 19:26 | CS94 ---
[address] [address] DIAGNOSTIC CARDIAC CATHETERIZATION PATIENT: VIANEY SMITH : 1930 MR#: [id number] ADMIT: 02/12/2017 JOB ID: [id number] SERVICE DATE: 02/15/2017 DATE OF PROCEDURE: Wednesday, February 15, 2017. LICENSED MASTER SOCIAL WORKER: Josemanuel Longoria MD. PROCEDURES: 1. Coronary angiogram--urgent. 2. Left heart catheterization (LHC)--pressure measurement. 3. Right heart catheterization (RHC). CLINICAL DETAILS: This 86-year-old man presents to the catheterization laboratory for coronary angiogram and hemodynamic evaluation after he was admitted to the hospital several days ago with symptoms predominantly of heart failure including exertional dyspnea and orthopnea. He also has chest discomfort that is focal at the left sternal border not clearly exertional and a less bothersome symptom; but it is recurrent after his more typical and severe angina resolved last year after PCI of ramus and of MANAGER COMPETITIVE INTELLIGENCE of ostial RCA. On presentation, echo shows marked decline in ejection fraction from 50% in December 2015 to now 15% to 20% with diffuse hypokinesia. He has aortic stenosis that is difficult to quantitate due to poor LV function. In December 2015, AVG was 2.6, MPS with AVG mean of 16 (JIM then 1.1); and AO severity index not severe at 0.33). Currently, AVG peak is 1.9, MPS with AVG mean 9 and AO severity ratio still 0.33 (JIM 1.7). Last year in December 2015, he had complex PCI to open MANAGER COMPETITIVE INTELLIGENCE of large chronically occluded ramus done at [facility]. In January 2016, he had a MANAGER COMPETITIVE INTELLIGENCE procedure at [facility] to revascularize ostial occluded RCA that had substantial cizp-uw-xwnrb collaterals. That procedure was complicated by perforation of mid RCA with tamponade; and pericardiocentesis; but his angina was are clearly relieved then. The LAD was moderately diseased proximally then; an FFR was not severe. PROCEDURAL DETAILS: He had been seen in cardiology consultation and catheterization was recommended. I met him to discuss the findings, impressions, and management considerations including the recommendation to proceed to cardiac catheterization for definitive diagnosis and to guide treatment decisions, including medical therapy or PCI or coronary bypass surgery if needed. We discussed the procedure including possible risks and complications. We discussed bleeding, infection, blood clot; as well as injury to nerve, artery, vein or kidney; and also arrhythmia, drug reaction; or others. We discussed treatment as needed including surgery, pacemaker, or transfusion. We discussed more serious complications that are possible including stroke, heart attack, cardiac arrest, and emergency surgery including transfer for coronary bypass surgery. After questions and discussion, he signed informed consent to proceed. They understand the severity of his underlying heart disease; and the high risk nature of procedures for him including because of his very low ejection fraction and possibly severe aortic stenosis and heart failure and renal dysfunction. He was treated with aspirin and Plavix chronically. He is brought to the catheterization laboratory n.p.o. where he is prepped sterilely and draped. RIGHT HEART CATHETERIZATION (RHC): Venous access was obtained without difficulty in the right common femoral vein using fluoroscopic localization over the femoral head; then local lidocaine anesthesia; and modified Seldinger technique to insert a 10 cm, 8-Montserratian side-arm sheath. A 7-Montserratian balloon-tipped, flow-directed [place]-José catheter was placed without difficulty in the pulmonary wedge position. Sequential measurements of right heart pressures including cardiac output by RALPH method and thermodilution method were obtained. The catheter was left in place for simultaneous measurement of cardiac output during the left heart catheterization for aortic valve area. At the end of the procedure, the catheter was removed. CORONARY ANGIOGRAM: After RHC, arterial access was next obtained without difficulty in the right common femoral artery using a similar technique to insert a 6-Montserratian, 55 cm Raabe sheath with its tip just distal to the left subclavian artery. Catheters were advanced and exchanged over a long 0.035 inch J tipped guidewire. The left coronary was engaged with a 6-Montserratian JL-4 diagnostic catheter. The right coronary artery was engaged with a 6-Montserratian JR-4 catheter. LHC: A 5-Montserratian Amplatz-2 catheter with a 0.038 straight tip guidewire was placed across the aortic valve into the left ventricle. Pressures were measured including LVED and pullback. No LV angiogram done. Procedure without difficulty. The patient tolerated the procedure well. No complications. A side-arm sheath angiogram shows access in a moderately diffusely diseased SFA. Arterial hemostasis was obtained after ACT was obtained without difficulty with manual pressure after ACT diminished following a dose of heparin 5000 units IV during the procedure. The RFV sheath was removed with manual compression. The patient left the catheterization laboratory in fully stable condition to the ALEX unit for ongoing care including by the primary hospitalist team. I discussed the procedure, findings, and management considerations with the patient, his daughter and ; as well as with the hospitalist team. FINDINGS: 1. LMCA: Intact. The left main coronary artery is a long, large vessel without obstructive disease. 2. LAD: Note subtotal 95% focal ostial LAD lesion at the LMCA bifurcation (MARY-3 flow). The LAD is a moderate-size vessel that reaches the apex and has two small diagonals. 3. LCX: Intact. The LCX is a moderate-size vessel only and is intact except for moderate atherosclerotic plaquing and a 60% focal mid LCX narrowing. 4. RAMUS: Note 90% mid ramus in-stent stenosis; as well as diffuse moderate in-stent stenosis in a long stented segment from the ostium of this large (3.0 mm) ramus branch which actually arises from high LCX. 5. RCA: Dominant. Note extensive stenting of moderate to large size RCA with an extensive PLB distribution and small PDA stents extend from ostium to mid vessel. There is 60% tubular in-stent restenosis proximally followed by an aneurysmal segment that may represent the area of perforation previously. The previous heavy [id number]-[id number] collaterals are not evident anymore. 6. LHC: LVED 24; and nearly no gradient across the aortic valve on simultaneous measurement or pullback across the aortic valve. 7. RHC: PAW 18 (mean); with A24 and V30. PAW 24 (mean; at the time of a 2nd measurement). 8. PA 38/20 (mean 24). RV 37/10. 9. RA 5 (mean). 10. Thermodilution: Cardiac output 4.1 (thermodilution).CI CONCLUSIONS: 1. CAD--three-vessel CAD including progressive severe subtotal ostial LAD disease; and in-stent restenosis of ramus with 80% mid ramus lesion; and patent MANAGER COMPETITIVE INTELLIGENCE revascularization of ostial RCA with moderate proximal in-stent restenosis (60%). 2. Hemodynamics: Mild pulmonary hypertension; elevated PAW; and elevated LVED with preserved cardiac output. 3. Aortic stenosis--invasive hemodynamics demonstrate no significant aortic gradient. RECOMMENDATIONS: 1. ECASA--indefinitely. 2. Plavix--consider lifetime. The patient and his family know not to stop Plavix for any reason without immediate cardiology consultation especially within one year of drug-coated stents. COMMENT: The primary change in the coronary anatomy is a severe ostial LAD lesion which could be responsible for the significant decrease in LV function which presented with heart failure. The MANAGER COMPETITIVE INTELLIGENCE treatment of ramus is preserved with the exception of moderate in-stent restenosis and a severe mid ramus lesion. The MANAGER COMPETITIVE INTELLIGENCE treatment of RCA is patent with moderate in-stent restenosis; and a proximal segment of intermediate restenosis. Consider PCI of ostial LAD; and of mid ramus restenosis. FFR of proximal RCA restenosis could be considered. MTDD
[2017-02-16] VITALS (8 sets, daily range): BP systolic 101–121; BP diastolic 58–71; PULSE 56–110; RESP 17–24; O2SAT 92–98
[2017-02-16] MEDS: Sodium Chloride LOK Flush 10 mL Syringe IVFLUSH SCH ×10 (00:30→20:07)
[2017-02-16 03:51] LABS: BASOPHILS % (AUTO) 0.1 % (0-3); EOSINOPHILS % (AUTO) 1.6 % (0-5); MONOCYTES % (AUTO) 13.2 % (4-12); Mean Corpuscular Hemoglobin 28.9 pg (27.0-35.0); Mean Corpuscular Volume 87.2 fL (81-100); NEUTROPHILS % (AUTO) 73.9 % (40-74); Platelet Count 163 bil/L (150-400)
--- NOTE | 2017-02-16 05:21 | NUR ---
ACTIVITY Patient vitals remain stable. Groin site soft and intact. Denies pain. Up to bathroom for bowel movement. Somewhat unsteady on his feet and required the walker to stabilize. Denies chest pain. Slept most of the night.
[2017-02-16] MEDS: predniSONE 5 mg Tablet PO SCH (08:30)
[2017-02-16] MEDS: Ondansetron 2 mg/mL 2 mL Inj IVPUSH PRN (09:11)
[2017-02-16] MEDS: Furosemide 10 mg/mL 4 mL Inj IVPUSH SCH (13:17)
--- NOTE | 2017-02-16 18:11 | PCM.PNMED ---
Subjective Date of Service Feb 16, 2017 Subjective Subjective: This morning, patient states that he feels well overall. He denies chest pain, nausea, and SOB. He reports that he does feel hungry because he has been npo all night. He denies pain from his groin site. Later in the afternoon, he complained of constipation and asked for his juarez to be removed because he felt that it was in the way. In addition, he was feeling anxious in the afternoon. Overnight: Patient vitals remain stable and he slept for most of the night. Per tele, he had 7 beats of Vtach but was asymptomatic. ROS: Review of systems: He denies fevers, chills, chest pain, abdominal pain, and dysuria Exam Vital Signs Vital Sign - Last Date Time Temp Pulse Resp B/P Pulse Ox O2 Delivery O2 Flow Rate FiO2 02/16/17 03:45 37.3 56 17 101/63 95 Room Air 02/15/17 19:15 2.00 Intake and Output 02/15/17 02/15/17 02/16/17 Cumulative From/Thru 15:00 23:00 07:00 02/12/17 18:20 - 02/16/17 06:14 Intake Total 140 ml 3879 ml Output Total 5550 ml Balance 140 ml -1671 ml Intake Oral 2888 ml IV Total 140 ml 991 ml Output Urine Total 5550 ml # Voids 2 # Bowel Movements 4 Exam General: Male Patient is sitting on side of bed, AAOX3, not in acute distress, cooperative and pleasant. HEENT: head normocephalic and atraumatic, PERRLA, EOMI, no scleral icterus, noninjected conjunctiva Neck: neck supple, non-tender, no lymphadenopathy, trachea midline, JVD evident CV: regular rate and rhythm, s1 and s2 heard, no murmur, radial pulses 2+ and equal bilaterally, distant heart sounds, 2/6 systolic ejection murmur, no edema Lungs: Clear to auscultation bilaterally, no wheezes, rales or rhonchi, no increased work of breathing Abdomen: normoactive bowel sounds on 4Q, soft, non-distended, non-tender to palpation, no organomegally, Skin: warm and dry Neuro: Grossly neurologically intact, cranial nerves II through XII intact Psych: Normal mood and affect IVs and Medications IV Fluids 500 mL normal saline given with IV medications Medications Reviewed: Medications were reviewed in detail Medications High risk medications including heparin and clopidogrel Lab and Diagnostics Laboratory Tests Test 02/16/17 03:40 White Blood Count 8.7th/mm3 (3.8-10.1) Red Blood Count 4.15mil/mm3 (4.40-5.80) Hemoglobin 12.0g/dL (13.8-17.2) Hematocrit 36.2% (41.0-50.0) Mean Corpuscular Volume 87.2fL (81-100) Mean Corpuscular Hemoglobin 28.9pg (27.0-35.0) Mean Corpuscular Hemoglobin Concent 33.1% (32.0-37.0) Red Cell Distribution Width 15.2% (12.3-15.4) Platelet Count 163bil/L (150-400) Neutrophils (%) (Auto) 73.9% (40-74) Lymphocytes (%) (Auto) 11.0% (14-46) Monocytes (%) (Auto) 13.2% (4-12) Eosinophils (%) (Auto) 1.6% (0-5) Basophils (%) (Auto) 0.1% (0-3) Sodium Level 134mEq/L (134-144) Potassium Level 4.8mEq/L (3.5-5.2) Chloride Level 100mEq/L (97-108) Carbon Dioxide Level 20mmol/L (18-29) Blood Urea Nitrogen 32mg/dL (8-27) Creatinine 1.29mg/dL (0.76-1.27) Estimat Glomerular Filtration Rate 56mL/min (>59) Glucose Level 93mg/dL (60-99) Calcium Level 8.3mg/dL (8.5-10.1) Total Bilirubin 0.3mg/dL (0.0-1.2) Aspartate Amino Transf (AST/SGOT) 23U/L (0-50) Alanine Aminotransferase (ALT/SGPT) 26U/L (0-44) Alkaline Phosphatase 66U/L (25-160) Total Protein 6.0g/dL (6.4-8.4) Albumin 3.6g/dL (3.4-5.0) Microbiology 02/14/17 Stool Occult Blood (GATITO) - Final, Complete Result Diagram: 02/16/17 0340 02/16/17 0340 X-Rays, CTs and MRIs X-RAY CHEST ONE VIEW, PORTABLE IMPRESSION: No acute cardiopulmonary disease. Moderate retrocardiac hiatal hernia. Dictated by: Ketan Manuel M.D. on 02/12/2017 at 19:38 CT ANGIO CHEST PULMONARY EMBOLISM IMPRESSION: 1. No evidence for central pulmonary embolism. Prominent main pulmonary artery would be consistent with pulmonary arterial hypertension. 2. Small bilateral dependent pleural effusions are of uncertain etiology. 3. Moderate retrocardiac hiatal hernia as before. 4. Incidental hepatic remote granulomatous disease, as well as 1.7 cm anterolateral right renal cortical simple cyst. Dictated by: Ketan Manuel M.D. on 02/12/2017 at 21:07 . 12-lead ECG EKG: Sinus rhythm, heart rate 90, borderline normal axis, IVCD, otherwise normal intervals, poor R-wave progression, probable LBBB, Q waves in leads V1-2 , no acute ischemic changes such as ST elevation or depression. . Cardiac Echo Impressions ECHO on 02/13/17 Interpretation Summary Left ventricular systolic function is severely reduced with the ejection fraction now estimated to be 15-20%. Compared to the prior exam, left ventricular function has markedly decreased now with severe global hypokinesis that appears worse in the anterior and anteroseptal segments which is new from the previous study. The left ventricle is moderate-severely dilated and is significantly larger compared to the previous study with diastolic parameters suggesting a pseudonormalization pattern, consistent with elevated filling pressures, likely higher compared to the previous study. Previous Echocardiogram Interpretation Summary 12/31/2015: 1) Upper normal left ventricular size wtih low normal function (EF about 50%). 2) Hypokinesis of the posterolateral wall, mid lateral wall, and basal inferior wall. 3) Normal right ventricular size and function. 4) Moderate calcific aortic stenosis. (mean gradient 16mmHg, valve area 1.1cm2). 5) No prior Echo available for comparison. Reading Physician:PM . Additional Diagnostics Cardiac Cath on 02/15/17: CONCLUSIONS: 1. CAD--three-vessel CAD including progressive severe subtotal ostial LAD disease; and in-stent restenosis of ramus with 80% mid ramus lesion; and patent QUICK MIXER OPERATOR revascularization of ostial RCA with moderate proximal in-stent restenosis (60%). 2. Hemodynamics: Mild pulmonary hypertension; elevated PAW; and elevated LVED with preserved cardiac output. 3. Aortic stenosis--invasive hemodynamics demonstrate no significant aortic gradient. Assessment & Plan Nayan Nuñez is an 86-year-old male with past medical history significant for CAD status post stenting 4, hypertension, hyperlipidemia, moderate calcific aortic stenosis who presented to [facility] emergency Department at the direction of his chef instructor Dr. Bennett for concerns regarding orthopnea and worsening shortness of breath. Acute new onset congestive heart failure, present on admission. Active. - The patient presented with dyspnea on exertion and worsening orthopnea x 1 month. - CTA demonstrated no evidence for central pulmonary embolism but prominent main pulmonary artery consistent with pulmonary arterial hypertension and small bilateral dependent pleural effusions, as above. - Chest x-ray read as no acute cardiopulmonary findings, however, appears to be mild cephalization consistent with pulmonary edema (reviewed by admitting team on admission) - echocardiogram with EF estimated 15-20%, globally worsened compared to prior examination - EKG demonstrated sinus rhythm without signs of ischemia (reviewed by admitting team on admission)s -Patient is on amiodarone 200 mg po - Serial troponins elevated but stable - Continue diuresis with Lasix IV 20 mg daily - Hold lisinopril 10 mg daily. - Ordered daily standing weights, strict I&O's, and 2 L fluid restriction. If patient has new onset CHF will need to be provided CHF teaching. - Metoprolol 12.5 BID per cardiology was not instituted due to pulse in the 50s and hypotension Unstable angina with Acute ischemic Cardiomyopathy, present on admission. Active. - Cardiac risk factors include: Previous NH, CAD, hypertension, hyperlipidemia, gender, age, former smoker. - Repeated serial troponins x 3, elevated but stable - Continue to monitor on telemetry. - Continue Isosorbide mononitrate 60 mg daily and dual antiplatelet therapy. - Continue nitroglycerin and morphine as needed for chest pain. - Continue cardiac heparing gtt at recommendation of the patient's chef instructor Dr. Bennett. - Patient underwent Coronary catheterization today and was found to have CAD-- three-vessel CAD including progressive severe subtotal ostial LAD disease; and in-stent restenosis of ramus with 80% mid ramus lesion; and patent QUICK MIXER OPERATOR revascularization of ostial RCA with moderate proximal in-stent restenosis . -Cath scheduled on 02/16/17 was postponed. Will undergo cath again tomorrow for likely intervention, keep nothing by mouth Situational Anxiety, active -Patient was feeling anxious about having the cardiac cath done, Spoke with patient about his apprehension -Gave 1 mg po Ativan prior to cath procedure, which offered relief Chronic problems: Coronary artery disease status post stenting, present on admission. Presumed stable. - Continue dual antiplatelet therapy with aspirin 81 mg daily and clopidogrel 75 mg daily. Hyperlipidemia, present on admission. Stable. - Patient is intolerant of statins. - Consider PCSK-9 inhibition post procedure Hypertension, present on admission. Stable. - Hold lisinopril 10 mg daily due to low bp. Chronic iron deficiency anemia, present on admission. Stable. - History of iron deficiency anemia and no longer on supplementation. - Encouraged the patient to eat green leafy vegetables and protein. - Patient is hemodynamically stable and has no acute signs of bleeding. - Monitor H&H daily. Polymyalgia rheumatica, present on admission. Stable. - Continue prednisone 5 mg daily. GERD, present on admission. Stable. - Occasionally takes PPI and recommended he stop due to increased risk of CV disease. - Continue famotidine 20 mg BID as needed for dyspepsia. - Patient has occasional dysphagia and ordered speech therapy evaluation. If etiology is lower esophageal dysphagia may need to be evaluated by GI as an outpatient. Paroxysmal atrial fibrillation, not present on admission. Stable. - Continue aspirin 81 mg daily and clopidogrel 75 mg daily. Chronic constipation, present on admission. Stable. - Continue Colace 200 mg twice a day and senna 17.2 mg daily at bedtime. BPH, present on admission. Stable. - Continue tamsulosin 0.4 mg daily. PRN antiemetics: Zofran and Maalox. PRN bowel regimen: Senna and MiraLAX. PRN analgesics: Tylenol, nitroglycerin, and morphine. Disposition: Patient will likely undergo catheterization again tomorrow, will require at least a further 24 hours of observation post procedure. . GI Prophylaxis: H2 neha VTE Prophylaxis: Other (cardiac heparin gtt) Resuscitation Status: CPR: Attempt Resuscitation Time spent 25 minutes Attending Statement I have seen and evaluated patient at bedside in addition to directly supervising care provided by resident physician Dr Vyas on 02/16/2017. I agree with above documentation. Amalia Vyas DO Feb 16, 2017 06:52 Sharif Woo DO Feb 17, 2017 07:56
[2017-02-16] MEDS ORDERED: LORazepam 1 mg Tablet PO ONE (18:50)
[2017-02-17] VITALS (29 sets, daily range): BP systolic 82–117; BP diastolic 31–78; PULSE 65–112; RESP 12–20; O2SAT 94–100
[2017-02-17] MEDS: Sodium Chloride LOK Flush 10 mL Syringe IVFLUSH SCH ×8 (01:01→16:30)
[2017-02-17 03:34] LABS: BASOPHILS % (AUTO) 0.3 % (0-3); EOSINOPHILS % (AUTO) 3.4 % (0-5); MONOCYTES % (AUTO) 13.6 % (4-12); Mean Corpuscular Hemoglobin 29.1 pg (27.0-35.0); Mean Corpuscular Volume 87.2 fL (81-100); NEUTROPHILS % (AUTO) 66.5 % (40-74); Platelet Count 157 bil/L (150-400)
--- NOTE | 2017-02-17 06:11 | NUR ---
BM Pt very anxious about not having BM for a day. Usuallu he has 2 BMs a day. Orders for mineral oil enema and stool softeners implemented. Pt reports he feels like "things are moving better" . No BM this shift. Pt slept through night after Ativan pill for anxiety in anticipation of procedure. Continuing to monitor. Care ongoing
[2017-02-17] MEDS: predniSONE 5 mg Tablet PO SCH (08:30)
[2017-02-17] MEDS: Furosemide 10 mg/mL 4 mL Inj IVPUSH SCH (08:52)
[2017-02-17] MEDS ORDERED: Heparin 1,000 Unit/mL 10 mL Inj ONE (14:26)
[2017-02-17] MEDS ORDERED: Nitroglycerin 50,000 mcg/250 mL D5W Premix IV ONE (14:26)
[2017-02-17] MEDS ORDERED: Heparin 1,000 Units/500 mL NS Premix IV ONE (14:26)
[2017-02-17] MEDS ORDERED: Heparin 10,000 Unit/1,000 mL NS Premix IV ONE ×2 (14:26→15:01)
--- NOTE | 2017-02-17 14:45 | NUR ---
To cathlab pt ordered to cathlab for cardiac intervention. pt alert oriented and agreeable. pt transported via bed, SL, RA. technical lead informed of pt departure. telemetry box left at bedside.
[2017-02-17] MEDS ORDERED: fentaNYL-PF 50 mCg/mL 2 mL Inj ONE (14:58)
--- NOTE | 2017-02-17 15:44 | NUR ---
D/C PT; pt is safe to amb w/nsg using FWW SBA
--- NOTE | 2017-02-17 16:26 | DI95 ---
[address] [address] INTERVENTIONAL CARDIAC CATHETERIZATION PATIENT: VIANEY SMITH : 1930 MR#: [id number] ADMIT: 02/12/2017 JOB ID: [id number] DATE OF SERVICE: RN BUILDING: Sree Avila MD PROCEDURE: Percutaneous intervention on the left coronary artery. INDICATION: LV dysfunction. PROCEDURAL DETAILS: The procedure was done via left femoral approach. Dr. Longoria obtained access and placed the catheters. Next, further details are completely enumerated in the procedure log to which the reader and the coders are referred. Next, briefly a Voda guide was used. A Runthrough wire was placed in the circumflex and BMW in the LAD. The BMW had an ostial calcific lesion which was first dilated with a 2.0 balloon and it did not heal. Following that a 2.5 cutting balloon was used at six atmospheres and finally we stented this vessel with a 3.0 x 12 mm Xience drug-coated stent. Following that, kissing balloon inflations were done with balloons in the LAD and a 2.5 balloon in the circumflex. Following that, the Runthrough wire was removed from the circumflex and placed into the ramus. The ramus had a tight 80% lesion in its mid segment. This was balloon angioplastied and then stented with a 2.5 x 15 mm Xience drug-coated stent. Final angiographic results were excellent. In summary, successful two-vessel intervention on the left coronary artery.
--- NOTE | 2017-02-17 17:23 | NUR ---
Social Work: Readiness for Discharge/Multidisciplinary Rounds D: Pt discussed in multidisciplinary rounds; pt is not yet medically stable and is scheduled for a cath today. Pt has been using a Fww during admission and has been SBA. Pt has been cleared for PT to discharge home with no anticipated needs. MANAGEMENT LIAISON met with the patient at bedside to confirm discharge plan and assess for unmet needs; pt states that he has no concerns about his discharge and can identify no unmet needs. His iwll transport. EMR reviewed; no discharge needs identified at this time. A: Pt who is I at baseline and uses a FWW P: Anticipate pt to discharge home via POV once medically stable; MANAGEMENT LIAISON to continue to follow to assess for unmet needs. SHARON Ray
[2017-02-17] MEDS ORDERED: Atropine 1 mg/10 mL (Code) Syringe IVPUSH PRN (17:55)
[2017-02-17] MEDS ORDERED: 0.9% Sodium Chloride 1,000 ML IV SCH (18:00)
--- NOTE | 2017-02-17 20:01 | NUR ---
ALXE Patient to [facility] post heart cath at 1645 with sheath in left groin. Sheath pulled pr commercial technician at 1740. Manual pressure complete at 1800. No bleeding or hematoma at left groin site. Pedal pulse pr doppler. Denies pain. Taking ice hips. Declines food because he wants to sit bolt upright to eat. Transferred to 2026 at 1945 by bed. Report to receiving RN.
[2017-02-17] MEDS ORDERED: Ondansetron 2 mg/mL 2 mL Inj IVPUSH PRN (21:10)
--- NOTE | 2017-02-17 22:49 | PCM.PNMED ---
Subjective Date of Service Feb 17, 2017 Subjective Today, patient states that he was able to sleep well last night. He reports that he has had constipation since 02/15. The mineral oil enema did not help him. He denies nausea, chest pain and SOB. Overnight, nurse reports that he was feeling anxious, which was relieved with 1 mg po Ativan. He was able to sleep for the rest of the night. ROS: Patient denies fever, chills, headaches, chest pain, palpitations, SOB, dyspnea, nausea, vomiting, abdominal pain, and dysuria. He has a juarez catheter in place. Exam Vital Signs Vital Sign - Last Date Time Temp Pulse Resp B/P Pulse Ox O2 Delivery O2 Flow Rate FiO2 02/17/17 03:10 37.0 65 20 104/56 94 Room Air 02/15/17 19:15 2.00 Intake and Output 02/16/17 02/16/17 02/17/17 Cumulative From/Thru 15:00 23:00 07:00 02/12/17 18:20 - 02/17/17 05:28 Intake Total 400 ml 400 ml 200 ml 4879 ml Output Total 1000 ml 1250 ml 700 ml 8500 ml Balance -600 ml -850 ml -500 ml -3621 ml Intake Oral 400 ml 400 ml 200 ml 3888 ml IV Total 991 ml Output Urine Total 1000 ml 1250 ml 700 ml 8500 ml # Voids 2 # Bowel Movements 1 0 0 5 Exam Exam General: Male Patient is sitting on side of bed, AAOX3, not in acute distress, cooperative and pleasant. HEENT: head normocephalic and atraumatic, PERRLA, EOMI, no scleral icterus, noninjected conjunctiva Neck: neck supple, non-tender, no lymphadenopathy, trachea midline, no JVD CV: regular rate and rhythm, s1 and s2 heard, no murmur, radial pulses 2+ and equal bilaterally, distant heart sounds, 2/6 systolic ejection murmur, no edema Lungs: Clear to auscultation bilaterally, no wheezes, rales or rhonchi, no increased work of breathing Abdomen: normoactive bowel sounds on 4Q, soft, non-distended, non-tender to palpation, no organomegally, Skin: warm and dry, ecchymosis present on UE and LE bilaterally : Has a juarez catheter in place Neuro: Grossly neurologically intact, cranial nerves II through XII intact Psych: Normal mood and affect IVs and Medications IV Fluids no IV fluids administered Medications Reviewed: Medications were reviewed in detail Medications High risk medications including heparin and clopidogrel Lab and Diagnostics Laboratory Tests Test 02/17/17 03:15 White Blood Count 7.7th/mm3 (3.8-10.1) Red Blood Count 4.05mil/mm3 (4.40-5.80) Hemoglobin 11.8g/dL (13.8-17.2) Hematocrit 35.3% (41.0-50.0) Mean Corpuscular Volume 87.2fL (81-100) Mean Corpuscular Hemoglobin 29.1pg (27.0-35.0) Mean Corpuscular Hemoglobin Concent 33.4% (32.0-37.0) Red Cell Distribution Width 15.1% (12.3-15.4) Platelet Count 157bil/L (150-400) Neutrophils (%) (Auto) 66.5% (40-74) Lymphocytes (%) (Auto) 16.1% (14-46) Monocytes (%) (Auto) 13.6% (4-12) Eosinophils (%) (Auto) 3.4% (0-5) Basophils (%) (Auto) 0.3% (0-3) Sodium Level 132mEq/L (134-144) Potassium Level 4.6mEq/L (3.5-5.2) Chloride Level 99mEq/L (97-108) Carbon Dioxide Level 18mmol/L (18-29) Blood Urea Nitrogen 35mg/dL (8-27) Creatinine 1.23mg/dL (0.76-1.27) Estimat Glomerular Filtration Rate 59mL/min (>59) Glucose Level 89mg/dL (60-99) Calcium Level 8.5mg/dL (8.5-10.1) Total Bilirubin 0.3mg/dL (0.0-1.2) Aspartate Amino Transf (AST/SGOT) 28U/L (0-50) Alanine Aminotransferase (ALT/SGPT) 26U/L (0-44) Alkaline Phosphatase 68U/L (25-160) Total Protein 6.2g/dL (6.4-8.4) Albumin 3.5g/dL (3.4-5.0) Microbiology 02/14/17 Stool Occult Blood (GATITO) - Final, Complete Result Diagram: 02/17/175 02/17/17 0315 X-Rays, CTs and MRIs X-RAY CHEST ONE VIEW, PORTABLE IMPRESSION: No acute cardiopulmonary disease. Moderate retrocardiac hiatal hernia. Dictated by: Ketan Manuel M.D. on 02/12/2017 at 19:38 CT ANGIO CHEST PULMONARY EMBOLISM IMPRESSION: 1. No evidence for central pulmonary embolism. Prominent main pulmonary artery would be consistent with pulmonary arterial hypertension. 2. Small bilateral dependent pleural effusions are of uncertain etiology. 3. Moderate retrocardiac hiatal hernia as before. 4. Incidental hepatic remote granulomatous disease, as well as 1.7 cm anterolateral right renal cortical simple cyst. Dictated by: Ketan Manuel M.D. on 02/12/2017 at 21:07 . 12-lead ECG EKG: Sinus rhythm, heart rate 90, borderline normal axis, IVCD, otherwise normal intervals, poor R-wave progression, probable LBBB, Q waves in leads V1-2 , no acute ischemic changes such as ST elevation or depression. . Cardiac Echo Impressions ECHO on 02/13/17 Interpretation Summary Left ventricular systolic function is severely reduced with the ejection fraction now estimated to be 15-20%. Compared to the prior exam, left ventricular function has markedly decreased now with severe global hypokinesis that appears worse in the anterior and anteroseptal segments which is new from the previous study. The left ventricle is moderate-severely dilated and is significantly larger compared to the previous study with diastolic parameters suggesting a pseudonormalization pattern, consistent with elevated filling pressures, likely higher compared to the previous study. Previous Echocardiogram Interpretation Summary 12/31/2015: 1) Upper normal left ventricular size wtih low normal function (EF about 50%). 2) Hypokinesis of the posterolateral wall, mid lateral wall, and basal inferior wall. 3) Normal right ventricular size and function. 4) Moderate calcific aortic stenosis. (mean gradient 16mmHg, valve area 1.1cm2). 5) No prior Echo available for comparison. Reading Physician:PM . Additional Diagnostics Cardiac Cath on 02/15/17: CONCLUSIONS: 1. CAD--three-vessel CAD including progressive severe subtotal ostial LAD disease; and in-stent restenosis of ramus with 80% mid ramus lesion; and patent OPTICAL FABRICATION TECHNICIAN revascularization of ostial RCA with moderate proximal in-stent restenosis (60%). 2. Hemodynamics: Mild pulmonary hypertension; elevated PAW; and elevated LVED with preserved cardiac output. 3. Aortic stenosis--invasive hemodynamics demonstrate no significant aortic gradient. Assessment & Plan Nayan Nuñez is an 86-year-old male with past medical history significant for CAD status post stenting 4, hypertension, hyperlipidemia, moderate calcific aortic stenosis who presented to [facility] emergency Department at the direction of his windows desktop engineer Dr. Bennett for concerns regarding orthopnea and worsening shortness of breath. Acute new onset congestive heart failure, present on admission. Active. - The patient presented with dyspnea on exertion and worsening orthopnea x 1 month. - CTA demonstrated no evidence for central pulmonary embolism but prominent main pulmonary artery consistent with pulmonary arterial hypertension and small bilateral dependent pleural effusions, as above. - Chest x-ray read as no acute cardiopulmonary findings, however, appears to be mild cephalization consistent with pulmonary edema (reviewed by admitting team on admission) - echocardiogram with EF estimated 15-20%, globally worsened compared to prior examination - EKG demonstrated sinus rhythm without signs of ischemia (reviewed by admitting team on admission)s -Patient is on amiodarone 200 mg po - Serial troponins elevated but stable - Continue diuresis with Lasix IV 20 mg daily - Hold lisinopril 10 mg daily. - Ordered daily standing weights, strict I&O's, and 2 L fluid restriction. If patient has new onset CHF will need to be provided CHF teaching. Unstable angina with Acute ischemic Cardiomyopathy, present on admission. Active. - Cardiac risk factors include: Previous [place], CAD, hypertension, hyperlipidemia, gender, age, former smoker. - Repeated serial troponins x 3, elevated but stable - Continue to monitor on telemetry. - Continue Isosorbide mononitrate 60 mg daily and dual antiplatelet therapy. - Continue nitroglycerin and morphine as needed for chest pain. - Continue cardiac heparing gtt at recommendation of the patient's windows desktop engineer Dr. Bennett. - Patient underwent Coronary catheterization today and was found to have CAD-- three-vessel CAD including progressive severe subtotal ostial LAD disease; and in-stent restenosis of ramus with 80% mid ramus lesion; and patent OPTICAL FABRICATION TECHNICIAN revascularization of ostial RCA with moderate proximal in-stent restenosis . -Cath scheduled on 02/16/17 was postponed. Underwent Cath this afternoon. In summary, successful two-vessel intervention on the left coronary artery -Per cardiology, continue to observe patient for 1-2 days. -Consider SNF placement and consult PT Situational Anxiety, active -Patient was feeling anxious about having the cardiac cath done, Spoke with patient about his apprehension -Gave 1 mg po Ativan prior to cath procedure, which offered relief Chronic problems: Coronary artery disease status post stenting, present on admission. Presumed stable. - Continue dual antiplatelet therapy with aspirin 81 mg daily and clopidogrel 75 mg daily. Hyperlipidemia, present on admission. Stable. - Patient is intolerant of statins. - Consider PCSK-9 inhibition post procedure Hypertension, present on admission. Stable. - Hold lisinopril 10 mg daily due to low bp. Chronic iron deficiency anemia, present on admission. Stable. - History of iron deficiency anemia and no longer on supplementation. - Encouraged the patient to eat green leafy vegetables and protein. - Patient is hemodynamically stable and has no acute signs of bleeding. - Monitor H&H daily. Polymyalgia rheumatica, present on admission. Stable. - Continue prednisone 5 mg daily. GERD, present on admission. Stable. - Occasionally takes PPI and recommended he stop due to increased risk of CV disease. - Continue famotidine 20 mg BID as needed for dyspepsia. - Patient has occasional dysphagia and ordered speech therapy evaluation. If etiology is lower esophageal dysphagia may need to be evaluated by GI as an outpatient. Paroxysmal atrial fibrillation, not present on admission. Stable. - Continue aspirin 81 mg daily and clopidogrel 75 mg daily. Chronic constipation, present on admission. Stable. - Continue Colace 200 mg twice a day and senna 17.2 mg daily at bedtime. BPH, present on admission. Stable. - Continue tamsulosin 0.4 mg daily. PRN antiemetics: Zofran and Maalox. PRN bowel regimen: Senna and MiraLAX. PRN analgesics: Tylenol, nitroglycerin, and morphine. Disposition: Patient will likely undergo catheterization again tomorrow, will require at least a further 24 hours of observation post procedure. . GI Prophylaxis: H2 neha VTE Prophylaxis: Other (cardiac heparin gtt) Resuscitation Status: CPR: Attempt Resuscitation Time spent 25 minutes Attending Statement I have seen and evaluated patient at bedside in addition to directly supervising care provided by resident physician DR Vyas on 02/17/2017. I agree with above documentation Amalia Vyas DO Feb 17, 2017 06:12 Sharif Woo DO Feb 18, 2017 08:06
[2017-02-18] VITALS (7 sets, daily range): BP systolic 90–119; BP diastolic 62–79; PULSE 66–95; RESP 16–20; O2SAT 93–98
[2017-02-18] MEDS: Sodium Chloride LOK Flush 10 mL Syringe IVFLUSH SCH ×9 (01:30→17:19)
[2017-02-18 02:55] LABS: Mean Corpuscular Hemoglobin 28.6 pg (27.0-35.0); Mean Corpuscular Volume 86.3 fL (81-100)
--- NOTE | 2017-02-18 06:33 | NUR ---
Post heart cath Pt admitted to [facility] at 199902/17/17 post heart cath, L groin site stable overnight, pedal pulses present by doppler. Bedrest completed at 2200, pt up to bathroom (BM x2) and chair through night. Pain controlled with tylenol. Slept through night.
--- NOTE | 2017-02-18 06:55 | PCM.PNMED ---
Subjective Date of Service Feb 18, 2017 Subjective Today, patient states that he feels well overall. During the afternoon, his Juarez catheter was removed and he was able to urinate. I spoke to him and his about plans after discharge. She expresses willingness to participate in cardiac rehabilitation. states that she will not be able to take care of him at home and that after his prior admissions to the hospital, he was sent to [facility] for rehabilitation. Overnight, his pain was controlled with tylenol and he Slept through night per nursing. He denies any headaches, dizziness, chest pain, palpitations, shortness of breath, nausea, vomiting, abdominal pain and dysuria. Exam Vital Signs Vital Sign - Last Date Time Temp Pulse Resp B/P Pulse Ox O2 Delivery O2 Flow Rate FiO2 02/18/17 06:06 75 02/18/17 02:44 36.8 18 90/62 93 Room Air 02/15/17 19:15 2.00 Intake and Output 02/17/17 02/17/17 02/18/17 Cumulative From/Thru 15:00 23:00 07:00 02/12/17 18:20 - 02/18/17 05:21 Intake Total 85 ml 100 ml 5064 ml Output Total 2200 ml 600 ml 20066 ml Balance -2115 ml -500 ml -6386 ml Intake Oral 0 ml 100 ml 3988 ml IV Total 85 ml 1076 ml Output Urine Total 2200 ml 600 ml 47199 ml # Voids 2 # Bowel Movements 1 6 Exam General: Male Patient is sitting on side of bed, AAOX3, not in acute distress, cooperative and pleasant. HEENT: head normocephalic and atraumatic, PERRLA, EOMI, no scleral icterus, noninjected conjunctiva Neck: neck supple, non-tender, no lymphadenopathy, trachea midline, no JVD CV: regular rate and rhythm, s1 and s2 heard, no murmur, radial pulses 2+ and equal bilaterally, 2/6 systolic ejection murmur, no edema Lungs: Clear to auscultation bilaterally, no wheezes, rales or rhonchi, no increased work of breathing Abdomen: normoactive bowel sounds on 4Q, soft, non-distended, non-tender to palpation, no organomegally, Skin: warm and dry, ecchymosis present on UE and LE bilaterally : Has a juarez catheter in place Neuro: Grossly neurologically intact, cranial nerves II through XII intact Psych: Normal mood and affect Lab and Diagnostics Laboratory Tests Test 02/18/17 02:40 White Blood Count 7.2th/mm3 (3.8-10.1) Red Blood Count 4.23mil/mm3 (4.40-5.80) Hemoglobin 12.1g/dL (13.8-17.2) Hematocrit 36.5% (41.0-50.0) Mean Corpuscular Volume 86.3fL (81-100) Mean Corpuscular Hemoglobin 28.6pg (27.0-35.0) Mean Corpuscular Hemoglobin Concent 33.2% (32.0-37.0) Red Cell Distribution Width 15.1% (12.3-15.4) Platelet Count 153bil/L (150-400) Sodium Level 134mEq/L (134-144) Potassium Level 4.1mEq/L (3.5-5.2) Chloride Level 98mEq/L (97-108) Carbon Dioxide Level 19mmol/L (18-29) Blood Urea Nitrogen 38mg/dL (8-27) Creatinine 1.33mg/dL (0.76-1.27) Estimat Glomerular Filtration Rate 54mL/min (>59) Glucose Level 127mg/dL (60-99) Calcium Level 8.7mg/dL (8.5-10.1) Total Bilirubin 0.4mg/dL (0.0-1.2) Aspartate Amino Transf (AST/SGOT) 32U/L (0-50) Alanine Aminotransferase (ALT/SGPT) 28U/L (0-44) Alkaline Phosphatase 71U/L (25-160) Total Protein 6.3g/dL (6.4-8.4) Albumin 3.6g/dL (3.4-5.0) Microbiology 02/14/17 Stool Occult Blood (GATITO) - Final, Complete Result Diagram: 02/18/17 0240 02/18/17 0240 X-Rays, CTs and MRIs X-RAY CHEST ONE VIEW, PORTABLE IMPRESSION: No acute cardiopulmonary disease. Moderate retrocardiac hiatal hernia. Dictated by: Ketan Manuel M.D. on 02/12/2017 at 19:38 CT ANGIO CHEST PULMONARY EMBOLISM IMPRESSION: 1. No evidence for central pulmonary embolism. Prominent main pulmonary artery would be consistent with pulmonary arterial hypertension. 2. Small bilateral dependent pleural effusions are of uncertain etiology. 3. Moderate retrocardiac hiatal hernia as before. 4. Incidental hepatic remote granulomatous disease, as well as 1.7 cm anterolateral right renal cortical simple cyst. Dictated by: Ketan Manuel M.D. on 02/12/2017 at 21:07 . 12-lead ECG EKG: Sinus rhythm, heart rate 90, borderline normal axis, IVCD, otherwise normal intervals, poor R-wave progression, probable LBBB, Q waves in leads V1-2 , no acute ischemic changes such as ST elevation or depression. . Cardiac Echo Impressions ECHO on 02/13/17 Interpretation Summary Left ventricular systolic function is severely reduced with the ejection fraction now estimated to be 15-20%. Compared to the prior exam, left ventricular function has markedly decreased now with severe global hypokinesis that appears worse in the anterior and anteroseptal segments which is new from the previous study. The left ventricle is moderate-severely dilated and is significantly larger compared to the previous study with diastolic parameters suggesting a pseudonormalization pattern, consistent with elevated filling pressures, likely higher compared to the previous study. Previous Echocardiogram Interpretation Summary 12/31/2015: 1) Upper normal left ventricular size wtih low normal function (EF about 50%). 2) Hypokinesis of the posterolateral wall, mid lateral wall, and basal inferior wall. 3) Normal right ventricular size and function. 4) Moderate calcific aortic stenosis. (mean gradient 16mmHg, valve area 1.1cm2). 5) No prior Echo available for comparison. Reading Physician:PM . Additional Diagnostics Cardiac Cath on 02/15/17: CONCLUSIONS: 1. CAD--three-vessel CAD including progressive severe subtotal ostial LAD disease; and in-stent restenosis of ramus with 80% mid ramus lesion; and patent DRY MIXER revascularization of ostial RCA with moderate proximal in-stent restenosis (60%). 2. Hemodynamics: Mild pulmonary hypertension; elevated PAW; and elevated LVED with preserved cardiac output. 3. Aortic stenosis--invasive hemodynamics demonstrate no significant aortic gradient. Assessment & Plan Nayan Nuñez is an 86-year-old male with past medical history significant for CAD status post stenting 4, hypertension, hyperlipidemia, moderate calcific aortic stenosis who presented to [facility] emergency Department at the direction of his sales lead Dr. Bennett for concerns regarding orthopnea and worsening shortness of breath. Acute new onset congestive heart failure, present on admission. Active. - The patient presented with dyspnea on exertion and worsening orthopnea x 1 month. - CTA demonstrated no evidence for central pulmonary embolism but prominent main pulmonary artery consistent with pulmonary arterial hypertension and small bilateral dependent pleural effusions, as above. - Chest x-ray read as no acute cardiopulmonary findings, however, appears to be mild cephalization consistent with pulmonary edema (reviewed by admitting team on admission) - echocardiogram with EF estimated 15-20%, globally worsened compared to prior examination - EKG demonstrated sinus rhythm without signs of ischemia (reviewed by admitting team on admission)s - Discontinue amiodarone 200 mg po -Start Toprol-XL 25 mg daily - Serial troponins elevated but stable - Continue diuresis with Lasix IV 20 mg daily - Hold lisinopril 10 mg daily. Resume lisinopril 5 mg by mouth starting tomorrow. - Ordered daily standing weights, strict I&O's, and 2 L fluid restriction. Unstable angina with Acute ischemic Cardiomyopathy, present on admission. Active. - Cardiac risk factors include: Previous [place], CAD, hypertension, hyperlipidemia, gender, age, former smoker. - Repeated serial troponins x 3, elevated but stable - Continue to monitor on telemetry. - Stop Isosorbide mononitrate 60 mg daily -Continue dual antiplatelet therapy. - Continue nitroglycerin and morphine as needed for chest pain. - Patient underwent Coronary catheterization 02/15/17 and was found to have CAD-- three-vessel CAD including progressive severe subtotal ostial LAD disease; and in-stent restenosis of ramus with 80% mid ramus lesion; and patent DRY MIXER revascularization of ostial RCA with moderate proximal in-stent restenosis . -Cath scheduled on 02/16/17 was postponed. Underwent Cath on 02/17/17. In summary , successful two-vessel intervention on the left coronary artery -Per cardiology, continue to observe patient for an extra day -Consider SNF placement -PT was consulted Situational Anxiety, active -Patient was feeling anxious about having the cardiac cath done, Spoke with patient about his apprehension -Gave 1 mg po Ativan prior to cath procedure, which offered relief Chronic problems: Coronary artery disease status post stenting, present on admission. Presumed stable. - Continue dual antiplatelet therapy with aspirin 81 mg daily and clopidogrel 75 mg daily. Hyperlipidemia, present on admission. Stable. - Patient is intolerant of statins. -Zetia 10 mg po for now - Consider PCSK-9 inhibition post procedure Hypertension, present on admission. Stable. - Hold lisinopril 10 mg daily due to low bp. Chronic iron deficiency anemia, present on admission. Stable. - History of iron deficiency anemia and no longer on supplementation. - Encouraged the patient to eat green leafy vegetables and protein. - Patient is hemodynamically stable and has no acute signs of bleeding. - Monitor H&H daily. Polymyalgia rheumatica, present on admission. Stable. - Continue prednisone 5 mg daily. GERD, present on admission. Stable. - Occasionally takes PPI and recommended he stop due to increased risk of CV disease. - Continue famotidine 20 mg BID as needed for dyspepsia. - Patient has occasional dysphagia and ordered speech therapy evaluation. If etiology is lower esophageal dysphagia may need to be evaluated by GI as an outpatient. Paroxysmal atrial fibrillation, not present on admission. Stable. - Continue aspirin 81 mg daily and clopidogrel 75 mg daily. Chronic constipation, present on admission. Stable. - Continue Colace 200 mg twice a day and senna 17.2 mg daily at bedtime. BPH, present on admission. Stable. - Continue tamsulosin 0.4 mg daily. PRN antiemetics: Zofran and Maalox. PRN bowel regimen: Senna and MiraLAX. PRN analgesics: Tylenol, nitroglycerin, and morphine. Disposition: Patient will likely discharge tomorrow . Pain Evaluation: Adequate Pain Control GI Prophylaxis: H2 neha VTE Prophylaxis: Other (cardiac heparin gtt) Resuscitation Status: CPR: Attempt Resuscitation Time spent 25 minutes Attending Statement I have seen and evaluated the patient at bedside in addition to directly supervising care provided by Dr Vyas on 02/18/2017. I agree with above documentation. Amalia Vyas DO Feb 18, 2017 06:48 Sharif Woo DO Feb 19, 2017 07:40
[2017-02-18] MEDS: Furosemide 10 mg/mL 4 mL Inj IVPUSH SCH (08:27)
[2017-02-18] MEDS: predniSONE 5 mg Tablet PO SCH (08:28)
--- NOTE | 2017-02-18 16:28 | NUR ---
Activity/juarez/comfort. pt up to bathroom/chair most of day. tolerating activity well. pt was able to ambulate in halls with FWW, desk pen set assembler and sba. stating he is feeling well. pt reported he was able to pass a bowel movement and urinary without difficulty once juarez was removed. pt denied pain or discomfort. pt with adequate nutritional intake despite reports of low appetite. bilateral groin site stable.
[2017-02-18] MEDS: MeTOProlol XL 25 mg ER24 Tablet PO SCH (18:50)
--- NOTE | 2017-02-18 19:01 | PCM.PNCARD ---
Subjective Date of service Feb 18, 2017 Chief Complaint Orthopnea History of Present Illness This is 86-year-old male with past medical history significant for CAD s/p stenting 4, aortic stenosis and hypertension who presented with orthopnea and worsening shortness of breath. The patient has a history of multiple MIs. He states he was having difficulty breathing while lying in bed. He taken a nitroglycerin and moved to a recliner where he slept throughout the night. He called Dr. Bennett and was advised to go to ER. He was started on a heparin drip in the ER. He received a cardiac catheterization by Dr. Longoria on 02/15/17 was found to have three-vessel disease with severe subtotal ostial LAD disease, in-stent restenosis of ramus and ostial RCA with moderate proximal in-stent stenosis. On 02/21/17 Dr. Avila took the patient to the catheterization lab where balloon angioplasty and stents were placed in the LAD and ramus. The patient had an uneventful hospital course since this point. Subjective: Patient has no cardiac complaints this point. He had a cardiac catheterization yesterday and is having no problems with the femoral insertion site. He is not walking the halls and has made multiple labs. He denies chest pain, chest discomfort, chest pressure, palpitations, dyspnea, and dyspnea on exertion. He is however concerned having had no bowel movement yet. Constitutional: Denies: Fever ENT: Reports: Nasal Congestion Cardiovascular: Denies: Chest Pain, Irregular Heart Rate, Palpitations Exam Vital Signs Vital Sign - Last Date Time Temp Pulse Resp B/P Pulse Ox O2 Delivery O2 Flow Rate FiO2 02/18/17 17:03 36.8 95 20 119/72 98 Room Air 02/15/17 19:15 2.00 Intake and Output 02/17/17 02/17/17 02/18/17 Cumulative From/Thru 15:00 23:00 07:00 02/12/17 18:20 - 02/18/17 05:21 Intake Total 85 ml 100 ml 5064 ml Output Total 2200 ml 600 ml 38890 ml Balance -2115 ml -500 ml -6386 ml Intake Oral 0 ml 100 ml 3988 ml IV Total 85 ml 1076 ml Output Urine Total 2200 ml 600 ml 12982 ml # Voids 2 # Bowel Movements 1 6 General: Pleasant Cooperative Skin: Warm & dry to touch Head: Normocephalic Cardiac: Regular rhythm with normal S1-S2 Systolic murmur (crescendo decrescendo 3/6 ) Pulses: Distal pulses intact Extremities: Warm w/o clubbing,cyanosis,edema Neurological: Alert & oriented Psychological: Affect & interaction appropriate Lab and Diagnostics Result Diagram: 02/18/1723902/18/17 024 Assessment & Plan Assessment This is 86-year-old male with past medical history significant for CAD s/p stenting 4, aortic stenosis and hypertension who presented with orthopnea and worsening shortness of breath. Unstable angina with Acute ischemic Cardiomyopathy, present on admission. Resolved. - Cardiac risk factors include: Previous GA, CAD, hypertension, hyperlipidemia, gender, age, former smoker. -Continue dual antiplatelet therapy. -Continue metoprolol succinate 25mg daily. Consider going up to 50mg if he is hemodynamically stable. -Continue Lasix IV 20 mg consider switching to oral tomorrow. -Continue lisinopril 5mg -Coronary catheterization on 02/15/17 showed three vessel disease with severe subtotal ostial LAD disease, in-stent restenosis of ramus with 80% mid ramus lesion; and patent [employer] OPERATOR revascularization of ostial RCA with moderate proximal in -stent restenosis . -Percutaneous intervention done 02/17/17 with balloon angioplasty and stents placed in the LAD and ramus. -Cardiac rehab after discharge Acute new onset congestive heart failure, present on admission. Resolved. - Dyspnea on exertion and orthopnea have resolved - Chest x-ray read as no acute cardiopulmonary findings, however, appears to be mild cephalization consistent with pulmonary edema - echocardiogram with EF estimated 15-20%, globally worsened compared to prior examination - EKG demonstrated sinus rhythm without signs of ischemia - Continue daily standing weights, strict I&O's, and 2 L fluid restriction. Coronary artery disease status post stenting, present on admission. Presumed stable. - Continue dual antiplatelet therapy with aspirin 81 mg daily and clopidogrel 75 mg daily. Hyperlipidemia, present on admission. Stable. - Patient is intolerant of statins. - Zetia 10 mg po for now - Consider PCSK-9 inhibition Problems: Cardiology Plan: Cardiac Rehab (after discharge) Pain Evaluation: Adequate Pain Control GI Prophylaxis: H2 neha VTE Prophylaxis: Other (cardiac heparin gtt) Resuscitation Status: CPR: Attempt Resuscitation Coco Richmond DO Feb 18, 2017 19:01 Hypertension, present on admission. Stable. - Hold lisinopril 10 mg daily due to low bp. Chronic iron deficiency anemia, present on admission. Stable. - History of iron deficiency anemia and no longer on supplementation. - Encouraged the patient to eat green leafy vegetables and protein. - Patient is hemodynamically stable and has no acute signs of bleeding. - Monitor H&H daily. Problems: Pain Evaluation: Adequate Pain Control GI Prophylaxis: H2 neha VTE Prophylaxis: Other (cardiac heparin gtt) Resuscitation Status: CPR: Attempt Resuscitation Coco Richmond DO Feb 18, 2017 19:01 GI Prophylaxis: H2 neha VTE Prophylaxis: Other (cardiac heparin gtt) Resuscitation Status: CPR: Attempt Resuscitation Coco Richmond DO Feb 18, 2017 19:01
[2017-02-19] VITALS (7 sets, daily range): BP systolic 92–116; BP diastolic 60–77; PULSE 61–87; RESP 16–18; O2SAT 96–98
[2017-02-19] MEDS: Sodium Chloride LOK Flush 10 mL Syringe IVFLUSH SCH ×6 (00:58→10:16)
[2017-02-19 05:04] LABS: BASOPHILS % (AUTO) 0.1 % (0-3); EOSINOPHILS % (AUTO) 6.1 % (0-5); MONOCYTES % (AUTO) 14.4 % (4-12); Mean Corpuscular Hemoglobin 28.6 pg (27.0-35.0); Mean Corpuscular Volume 85.2 fL (81-100); NEUTROPHILS % (AUTO) 62.8 % (40-74); Platelet Count 141 bil/L (150-400)
--- NOTE | 2017-02-19 06:15 | NUR ---
Activity/Groin Sites Patient up ambulating in room with FWW and standby assist. Ambulates to bathroom and spent several hours sitting up in his chair overnight. Bilateral groin sites soft, non-tender, no drainage. Significant bruising surrounding right groin site.
[2017-02-19] MEDS: MeTOProlol XL 25 mg ER24 Tablet PO SCH (08:30)
[2017-02-19] MEDS: predniSONE 5 mg Tablet PO SCH (10:15)
--- NOTE | 2017-02-19 13:06 | NUR ---
Social Work: Readiness for Discharge/Multidisciplinary Rounds D: Pt discussed in multidisciplinary rounds; pt is nearing d/c. Pt will require cardiac rehab as an outpt in addition to a Lifevest. SW notified of concerns from pt's about d/c plan. Pt has been using a Fww during admission and has been SBA. Pt has been cleared for PT to discharge home with no anticipated needs. No d/c orders are active at this time. RETAIL SALES LEAD met with the patient and at bedside to address her concerns. Pt's is appropriately worried about her 's medical course. Pt's is afraid that she will have to lift him at home and will hurt her back, SW educated on pt's mobility in the hospital. SW provided a listening presence and emotional support at bedside. By the end of the conversation, pt's is agreeable to d/c home. Pt agreeable to d/c home as well. No additional SW needs at this time. SW wrote phone number on whiteboard and encouraged contact if needs arise. A: Pt who is I at baseline and uses a FWW P: Pt to d/c home with to transport via POV, awaiting Lifevest. All updated and agreeable to plan. SHARON Zavala
--- NOTE | 2017-02-19 13:16 | PCM.DIMED ---
Amalia Vyas DO 02/19/17 1316: Discharge Instructions Date of Service Feb 19, 2017 Dates of Hospitalization Feb 12, 2017 at 21:14 Discharge Diagnosis Discharge Diagnosis Acute, New-onset Congestive Heart Failure Unstable Angina with Acute Ischemic Cardiomyopathy Situational Anxiety Coronary Artery Disease status post stenting Hyperlipidemia Hypertension Chronic Iron Deficiency Anemia Polymyalgia Rheumatica Gastroesophageal Reflux Disease Chronic Constipation Benign Prostatic Hyperplasia Paroxysmal Atrial Fibrillation, not present on admission Medication Instructions Additional med instructions We stopped your Isosorbide Mononitrate We decreased your Lisinopril from 10 mg to 5 mg We started you on Zetia, Furosemide, and Metoprolol Succinate We continued the rest of your home meds as listed Please take as indicated Diet Discharge Diet: Heart Healthy Activity Discharge Activity: Other (Do not lift anything over 10 lbs for 10 days. Participate in Cardiac Rehab post discharge) Call your provider Call your provider for: Fever or Chills, Shortness of breath, Bleeding, Chest pain, Vomitting, Excessive diarrhea, Weakness (unilateral) Patient Instructions Patient Instructions When you were first advised to go to the Emergency Room by Dr. Bennett, you were having worsening shortness of breath and difficulty breathing while lying flat. When they did an ultrasound of your heart, it was found that your heart's ejection fraction reduced to 15-20%, which is much worse compared to your prior ultrasound. We treated you for congestive heart failure. 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 In order to control this rhythm and the heart rate, we gave a medication called amiodarone. In order to figure out why your heart function became much worse, cardiology did a heart catheterization on 02/15/17 and they found several heart vessels that were stenosed, or abnormally narrowed. You underwent another cardiac catheterization on 02/17 and cardiology was able to successfully intervene on 2 vessels of your left coronary artery with stents. After your procedures, you have been able to walk around, urinate, and have bowel movements. Please do not lift anything over 10 lbs for at least 10 days. You will have a follow-up with cardiology within a week so that they can re-evaluate you. We made several medication changes so please take as advised. Make sure you continue to take your Aspirin and Plavix. You also agreed to getting a Life Vest. We recommend cardiac rehab, like you have done in the past. In addition, you need to follow-up with your primary care provider, Dr. Reyna. If you experience symptoms of fevers, chest pain, SOB please go to the emergency department Follow-up plan You will have a follow-up with cardiology within a week so that they can re- evaluate you. In addition, you need to follow-up with your primary care provider , Dr. Reyna. Anastasia in cardiac Rehab. Follow-up Provider: Sera Reyna MD Follow-up with PCP in: 2 weeks Provider: Alexis Bennett MD Follow-up in: 1 week Cardiac Rehab: 1 week (1-2 weeks) Sharif Woo DO 02/19/17 1703: Discharge Instructions Attending's Statement Read and agree Amalia Vyas DO Feb 19, 2017 13:16 Sharif Woo DO Feb 19, 2017 17:03
[2017-02-19] MEDS ORDERED: LISI-571 PO (14:04)
[2017-02-19] MEDS ORDERED: METO25TA99 PO (14:04)
[2017-02-19] MEDS ORDERED: FURO40TA4 PO (14:04)
[2017-02-19] MEDS ORDERED: EZET10TA PO (14:04)
--- NOTE | 2017-02-19 18:19 | NUR ---
discharge Plan was for pt to have life vest. Spoke with Dr Morel by phone around 1700 and she stated that it was ok for pt to d/c home without life vest and have it fitted at home as an outpt. She will place orders for this to be done. Informed pt and family ( and DIL) of plan and they understand. Pt took all belongings home with him. PIV x2 removed prior to d/c. Provided information regarding medications and medical diagnoses. Pt requested stool softeners today to have a BM which were successful. Urinating without issue after juarez d/c yesterday. able to ambulate with FWW. Pt d/c with and DIL. taken to car with PIGMENT MIXER in w/c.
--- NOTE | 2017-02-20 07:01 | PCM.DC.MED ---
Discharge Summary Date of Service Feb 19, 2017 Dates of Hospitalization Date of Hospital Admission Feb 12, 2017 at 21:14 Date of Discharge: Feb 19, 2017 Providers: Admitting Physician: Hien Luna DO Primary Care Physician: Sera Reyna MD Attending Physician: Sharif Woo DO Diagnosis at Time of Discharge Diagnosis at Time of Discharge Acute, New-onset Congestive Heart Failure Unstable Angina with Acute Ischemic Cardiomyopathy Situational Anxiety Coronary Artery Disease status post stenting Hyperlipidemia Hypertension Chronic Iron Deficiency Anemia Polymyalgia Rheumatica Gastroesophageal Reflux Disease Chronic Constipation Benign Prostatic Hyperplasia Paroxysmal Atrial Fibrillation, not present on admission Consultations Cardiology was consulted Procedures XRay, CTs & MRIs X-RAY CHEST ONE VIEW, PORTABLE IMPRESSION: No acute cardiopulmonary disease. Moderate retrocardiac hiatal hernia. Dictated by: Ketan Manuel M.D. on 02/12/2017 at 19:38 CT ANGIO CHEST PULMONARY EMBOLISM IMPRESSION: 1. No evidence for central pulmonary embolism. Prominent main pulmonary artery would be consistent with pulmonary arterial hypertension. 2. Small bilateral dependent pleural effusions are of uncertain etiology. 3. Moderate retrocardiac hiatal hernia as before. 4. Incidental hepatic remote granulomatous disease, as well as 1.7 cm anterolateral right renal cortical simple cyst. Dictated by: Ketan Manuel M.D. on 02/12/2017 at 21:07 . ECG 12 Lead EKG: Sinus rhythm, heart rate 90, borderline normal axis, IVCD, otherwise normal intervals, poor R-wave progression, probable LBBB, Q waves in leads V1-2 , no acute ischemic changes such as ST elevation or depression. . Cardiac Echo Impression ECHO on 02/13/17 Interpretation Summary Left ventricular systolic function is severely reduced with the ejection fraction now estimated to be 15-20%. Compared to the prior exam, left ventricular function has markedly decreased now with severe global hypokinesis that appears worse in the anterior and anteroseptal segments which is new from the previous study. The left ventricle is moderate-severely dilated and is significantly larger compared to the previous study with diastolic parameters suggesting a pseudonormalization pattern, consistent with elevated filling pressures, likely higher compared to the previous study. Previous Echocardiogram Interpretation Summary 12/31/2015: 1) Upper normal left ventricular size wtih low normal function (EF about 50%). 2) Hypokinesis of the posterolateral wall, mid lateral wall, and basal inferior wall. 3) Normal right ventricular size and function. 4) Moderate calcific aortic stenosis. (mean gradient 16mmHg, valve area 1.1cm2). 5) No prior Echo available for comparison. Reading Physician:PM . Invasive Procedures 02/17/17 Percutaneous intervention on the left coronary artery. INDICATION: LV dysfunction. PROCEDURAL DETAILS: The procedure was done via left femoral approach. Dr. Longoria obtained access and placed the catheters. Next, further details are completely enumerated in the procedure log to which the reader and the coders are referred. Next, briefly a Voda guide was used. A Runthrough wire was placed in the circumflex and BMW in the LAD. The BMW had an ostial calcific lesion which was first dilated with a 2.0 balloon and it did not heal. Following that a 2.5 cutting balloon was used at six atmospheres and finally we stented this vessel with a 3.0 x 12 mm Xience drug-coated stent. Following that, kissing balloon inflations were done with balloons in the LAD and a 2.5 balloon in the circumflex. Following that, the Runthrough wire was removed from the circumflex and placed into the ramus. The ramus had a tight 80% lesion in its mid segment. This was balloon angioplastied and then stented with a 2.5 x 15 mm Xience drug-coated stent. Final angiographic results were excellent. In summary, successful two-vessel intervention on the left coronary artery. Sree Avila MD 02/17/17 1601 Other Diagnostics Cardiac Cath on 02/15/17: CONCLUSIONS: 1. CAD--three-vessel CAD including progressive severe subtotal ostial LAD disease; and in-stent restenosis of ramus with 80% mid ramus lesion; and patent ELEVATOR ERECTOR HELPER revascularization of ostial RCA with moderate proximal in-stent restenosis (60%). 2. Hemodynamics: Mild pulmonary hypertension; elevated PAW; and elevated LVED with preserved cardiac output. 3. Aortic stenosis--invasive hemodynamics demonstrate no significant aortic gradient. Brief History Per HPI of Dr. Oneil on 02/12/17: Nayan Nuñez is an 86-year-old male with past medical history significant for CAD status post stenting 4, hypertension, hyperlipidemia, moderate calcific aortic stenosis who presented to [facility] emergency Department at the direction of his forensic science technician Dr. Bennett for concerns regarding orthopnea and worsening shortness of breath. The patient reports that he had 2 MIs, in December 2015, and January 2016, with stenting 4. He continued to have unstable angina after recent stenting and saw Dr. Bennett and 10/2016, and had a stress test scheduled for 02/15/2017. He reports that he received a reminder phone call with instructions regarding his upcoming stress test where he relayed that he would likely be unable to have the test performed as he is unable to lie flat. As a result, Dr. Bennett recommended that the patient go to the emergency department and be evaluated for CHF, diuresed, and started on a cardiac heparin drip. The patient reports that he has had dyspnea on exertion and increasing orthopnea over the last 1 month. He occasionally has shortness of breath at rest. He also has accompanying paroxysmal nocturnal dyspnea, chronic productive cough of white sputum, diaphoresis, and mild lower extremity edema that has not worsened. He reports that he has been experiencing daily episodes of chest heaviness with associated shortness of breath that is alleviated with nitroglycerin. Of note, he has also noticed mid back/subscapular pain 1-2 weeks. He denies headache, acute vision changes, sore throat, chest pain, shortness of breath, abdominal pain, nausea, vomiting, dysuria or diarrhea. He endorses chronic constipation, chronic postnasal drip, intermittent acid reflux , and occasional dysphagia. The patient had some conversational dyspnea during the beginning of our interview after going to the bathroom. Vital signs in the ED: Temperature 37.0. Pulse 104. Respiratory rate 24. Blood pressure 115/71. Pulse ox 96% on room air. He was given in the ED furosemide IV 40 mg 1 and started on cardiac heparin drip at Dr. Bennett's recommendation. PCP is Dr. Reyna. [employer] Admin is Dr. Bennett. Hospital Course Nayan Nuñez is an 86-year-old male with past medical history significant for CAD status post stenting 4, hypertension, hyperlipidemia, moderate calcific aortic stenosis who presented to [facility] emergency Department at the direction of his forensic science technician Dr. Bennett for concerns regarding orthopnea and worsening shortness of breath. He was started on a heparin drip in the ER. ECHO revealed Congestive heart failure now with documented profound left ventricular systolic dysfunction.He was diuresed as much as his blood pressure would allow. Given that the etiology of his systolic function deterioration remained unclear, cardiology recommended proceeding with cardiac catheterization to reassess. He received a cardiac catheterization by Dr. Longoria on 02/15/17 was found to have three-vessel disease with severe subtotal ostial LAD disease, in-stent restenosis of ramus and ostial RCA with moderate proximal in-stent stenosis. On 02/17/17 Dr. Avila took the patient to the catheterization lab where balloon angioplasty and stents were placed in the LAD and ramus. Acute new onset congestive heart failure, present on admission. Active. - The patient presented with dyspnea on exertion and worsening orthopnea x 1 month. - CTA demonstrated no evidence for central pulmonary embolism but prominent main pulmonary artery consistent with pulmonary arterial hypertension and small bilateral dependent pleural effusions, as above. - Chest x-ray read as no acute cardiopulmonary findings, however, appears to be mild cephalization consistent with pulmonary edema (reviewed by admitting team on admission) - echocardiogram with EF estimated 15-20%, globally worsened compared to prior examination - EKG demonstrated sinus rhythm without signs of ischemia (reviewed by admitting team on admission)s - Discontinue amiodarone 200 mg po, given prior for monomorphic Vtach -Start Toprol-XL 25 mg daily - Switched IV lasix and sent patient home with Lasix 40 mg po - Hold home lisinopril 10 mg daily. Discharged patient with lisinopril 5 mg by mouth. - Ordered daily standing weights, strict I&O's, and 2 L fluid restriction. Unstable angina with Acute ischemic Cardiomyopathy, present on admission. Active. - Cardiac risk factors include: Previous CA, CAD, hypertension, hyperlipidemia, gender, age, former smoker. - Repeated serial troponins x 3, elevated but stable - Continue to monitor on telemetry. - Stop Isosorbide mononitrate 60 mg daily -Continue dual antiplatelet therapy. - Continue nitroglycerin and morphine as needed for chest pain. - Patient underwent Coronary catheterization 02/15/17 and was found to have CAD-- three-vessel CAD including progressive severe subtotal ostial LAD disease; and in-stent restenosis of ramus with 80% mid ramus lesion; and patent ELEVATOR ERECTOR HELPER revascularization of ostial RCA with moderate proximal in-stent restenosis . -Cath scheduled on 02/16/17 was postponed. Underwent Cath on 02/17/17. In summary , successful two-vessel intervention on the left coronary artery -PT was consulted -Life Vest set up as an outpatient Situational Anxiety, active -Patient was feeling anxious about having the cardiac cath done, Spoke with patient about his apprehension -Gave 1 mg po Ativan prior to cath procedure, which offered relief Chronic problems: Coronary artery disease status post stenting, present on admission. Presumed stable. - Continue dual antiplatelet therapy with aspirin 81 mg daily and clopidogrel 75 mg daily. Hyperlipidemia, present on admission. Stable. - Patient is intolerant of statins. -Zetia 10 mg po for now - Consider PCSK-9 inhibition post procedure Hypertension, present on admission. Stable. - Hold lisinopril 10 mg daily due to low bp. Chronic iron deficiency anemia, present on admission. Stable. - History of iron deficiency anemia and no longer on supplementation. - Encouraged the patient to eat green leafy vegetables and protein. - Patient is hemodynamically stable and has no acute signs of bleeding. - Monitor H&H daily. Polymyalgia rheumatica, present on admission. Stable. - Continue prednisone 5 mg daily. GERD, present on admission. Stable. - Occasionally takes PPI and recommended he stop due to increased risk of CV disease. - Continue famotidine 20 mg BID as needed for dyspepsia. - Patient has occasional dysphagia and ordered speech therapy evaluation. If etiology is lower esophageal dysphagia may need to be evaluated by GI as an outpatient. Paroxysmal atrial fibrillation, not present on admission. Stable. - Continue aspirin 81 mg daily and clopidogrel 75 mg daily. Chronic constipation, present on admission. Stable. - Continue Colace 200 mg twice a day and senna 17.2 mg daily at bedtime. BPH, present on admission. Stable. - Continue tamsulosin 0.4 mg daily. PRN antiemetics: Zofran and Maalox. PRN bowel regimen: Senna and MiraLAX. PRN analgesics: Tylenol, nitroglycerin, and morphine. Code Status: Patient is full code . Exam Vital Signs (Last) Date Time Temp Pulse Resp B/P Pulse Ox O2 Delivery O2 Flow Rate FiO2 02/19/17 12:18 36.9 82 16 116/67 97 Room Air 02/15/17 19:15 2.00 Exam General: Male Patient is sitting on side of bed, AAOX3, not in acute distress, cooperative and pleasant. HEENT: head normocephalic and atraumatic, PERRLA, EOMI, no scleral icterus, noninjected conjunctiva Neck: neck supple, non-tender, no lymphadenopathy, trachea midline, no JVD CV: regular rate and rhythm, s1 and s2 heard, no murmur, radial pulses 2+ and equal bilaterally, 2/6 systolic ejection murmur, no edema Lungs: Clear to auscultation bilaterally, no wheezes, rales or rhonchi, no increased work of breathing Abdomen: normoactive bowel sounds on 4Q, soft, non-distended, non-tender to palpation, no organomegally, Skin: warm and dry, ecchymosis present on UE and LE bilaterally, bilateral femoral site access- ecchymoses but healing well : Ramey has been removed Neuro: Grossly neurologically intact, cranial nerves II through XII intact Psych: Normal mood and affect Test 02/12/17 19:15 02/12/17 20:39 02/13/17 00:00 02/13/17 03:30 Prothrombin Time 11.2sec (8.1-12.5) Prothromb Time International Ratio 1.05ratio D-Dimer 1.05mg/L FEU (<0.50) Hemoglobin A1c 5.6% (4.8-5.6) Pro-B-Type Natriuretic Peptide 4801pg/mL (0-486) Thyroid Stimulating Hormone (TSH) 1.350uIU/mL (0.450-4.500) Hold Urine Received (Received) Urine Color Yellow (YELLOW) Urine Appearance Clear (CLEAR,HAZY) Urine pH 6.0 (5.0-8.0) Urine Specific [place] 1.010 (1.003-1.035) Urine Protein Negativemg/dL (NEG,TRACE) Urine Glucose (UA) Negativemg/dL (NEGATIVE) Urine Ketones Negativemg/dL (NEGATIVE) Urine Occult Blood Negative (NEGATIVE) Urine Nitrite Negative (NEGATIVE) Urine Bilirubin Negative (NEGATIVE) Urine Urobilinogen Normalmg/dL (NORMAL) Urine Leukocyte Esterase Negative (NEGATIVE) Urine RBC 0-2/hpf (0-2) Urine WBC 0-5/hpf (0-5) Urine Epithelial Cells None/hpf (NONE-MOD) Urine Crystals None seen (NONE SEEN) Urine Bacteria None/hpf (NONE-FEW) Urine Hyaline Casts Occasional/lpf (NONE) Urine Granular Casts Rare (NONE SEEN) Urine Waxy Casts None seen (NONE SEEN) Urine Red Blood Cell Casts None seen (NONE SEEN) Urine White Blood Cell Casts None seen (NONE SEEN) Urine Mucus None seen (None Seen) Urine Trichomonas None seen (NONE SEEN) Urine Yeast None (NONE SEEN) Urinalysis Comment None Urine Culture Reflexed Not indicated Triglycerides Level 44mg/dL (0-149) Cholesterol Level 153mg/dL (100-199) LDL Cholesterol, Calculated 95.200mg/dL (0-99) VLDL Cholesterol 8.800mg/dL HDL Cholesterol 49mg/dL (>39) Cholesterol/HDL Ratio 3.12 (0.0-4.4) Test 02/13/17 07:38 02/14/17 03:55 02/15/17 03:45 02/15/17 05:25 Total Creatine Kinase 160U/L (21-232) Creatine Kinase MB 8.3ng/mL (0.0-10.4) Creatine Kinase MB % 5.2% (0.0-5.0) Troponin T 0.026ug/L (0.0-0.011) Phosphorus Level 3.4mg/dL (2.5-4.9) Magnesium Level 2.2mg/dL (1.6-2.6) Activated Partial Thromboplast Time 83.2sec (22.8-33.0) Test 02/19/17 04:55 White Blood Count 7.6th/mm3 (3.8-10.1) Red Blood Count 4.20mil/mm3 (4.40-5.80) Hemoglobin 12.0g/dL (13.8-17.2) Hematocrit 35.8% (41.0-50.0) Mean Corpuscular Volume 85.2fL (81-100) Mean Corpuscular Hemoglobin 28.6pg (27.0-35.0) Mean Corpuscular Hemoglobin Concent 33.5% (32.0-37.0) Red Cell Distribution Width 14.9% (12.3-15.4) Platelet Count 141bil/L (150-400) Neutrophils (%) (Auto) 62.8% (40-74) Lymphocytes (%) (Auto) 16.3% (14-46) Monocytes (%) (Auto) 14.4% (4-12) Eosinophils (%) (Auto) 6.1% (0-5) Basophils (%) (Auto) 0.1% (0-3) Sodium Level 132mEq/L (134-144) Potassium Level 4.3mEq/L (3.5-5.2) Chloride Level 97mEq/L (97-108) Carbon Dioxide Level 20mmol/L (18-29) Blood Urea Nitrogen 40mg/dL (8-27) Creatinine 1.24mg/dL (0.76-1.27) Estimat Glomerular Filtration Rate 58mL/min (>59) Glucose Level 112mg/dL (60-99) Calcium Level 9.0mg/dL (8.5-10.1) Total Bilirubin 0.4mg/dL (0.0-1.2) Aspartate Amino Transf (AST/SGOT) 24U/L (0-50) Alanine Aminotransferase (ALT/SGPT) 24U/L (0-44) Alkaline Phosphatase 77U/L (25-160) Total Protein 6.5g/dL (6.4-8.4) Albumin 3.9g/dL (3.4-5.0) Discharge Medications Discharge Medications Aspirin (Aspirin) 81 Mg Tablet 81 MG PO DAILY (Reported) Cholecalciferol (Vitamin D3) (Vitamin D3) 1,000 Unit Tab.chew 1,000 UNIT PO DAILY (Reported) Clopidogrel (Clopidogrel) 75 Mg Tablet 75 MG PO DAILY (Reported) Docusate Sodium (Colace) 100 Mg Capsule 200 MG PO BID (Reported) Ezetimibe (Zetia) 10 Mg Tablet 10 MG PO DAILY Prescribed by: Tara GOODMAN Furosemide (Furosemide) 40 Mg Tablet 40 MG PO DAILY Prescribed by: Tara GOODMAN Garlic (Garlic) 1,000 Mg Capsule 1,000 MG PO DAILY (Reported) Lisinopril (Lisinopril) 5 Mg Tablet 5 MG PO DAILY Prescribed by: Tara GOODMAN Metoprolol Succinate ER (Metoprolol Succinate ER) 25 Mg Tab.er.24h 25 MG PO DAILY Prescribed by: Tara GOODMAN Multivits-Min/FA/Lycopene/Lut (Centrum Silver Tablet) 1 Each Tablet 1 EACH PO DAILY (Reported) Prednisone (PredniSONE) 5 Mg Tab 5 MG PO DAILY (Reported) Sennosides (Senna) 8.6 Mg Tablet 17.2 MG PO HS (Reported) Tamsulosin ER (Tamsulosin ER) 0.4 Mg Cap.er.24h 0.4 MG PO DAILY Prescribed by: ARIAS BRYSON MD Vit C/E/Zn/Coppr/Lutein/Zeaxan (Preservision Areds 2 Softgel) 1 Each Capsule 1 EACH PO BID (Reported) As needed Lansoprazole ODT (Prevacid ODT) 15 Mg Tablet 15 MG PO DAILY PRN PRN For Indigestion (Reported) Nitroglycerin SL (Nitrostat) 0.4 Mg Tab.subl 0.4 MG SL Q5MIN PRN PRN For Pain ( Reported) Additional med instructions We stopped your Isosorbide Mononitrate We decreased your Lisinopril from 10 mg to 5 mg We started you on Zetia, Furosemide, and Metoprolol Succinate We continued the rest of your home meds as listed Please take as indicated Followup Plan Disposition: Discharge to home Follow-up plan You will have a follow-up with cardiology within a week so that they can re- evaluate you. In addition, you need to follow-up with your primary care provider , Dr. Reyna. Anastasia in cardiac Rehab. Discharge Diet: Heart Healthy Discharge Activity: Other (Do not lift anything over 10 lbs for 10 days. Participate in Cardiac Rehab post discharge) Patient Instructions When you were first advised to go to the Emergency Room by Dr. Bennett, you were having worsening shortness of breath and difficulty breathing while lying flat. When they did an ultrasound of your heart, it was found that your heart's ejection fraction reduced to 15-20%, which is much worse compared to your prior ultrasound. We treated you for congestive heart failure. 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 In order to control this rhythm and the heart rate, we gave a medication called amiodarone. In order to figure out why your heart function became much worse, cardiology did a heart catheterization on 02/15/17 and they found several heart vessels that were stenosed, or abnormally narrowed. You underwent another cardiac catheterization on 02/17 and cardiology was able to successfully intervene on 2 vessels of your left coronary artery with stents. After your procedures, you have been able to walk around, urinate, and have bowel movements. Please do not lift anything over 10 lbs for at least 10 days. You will have a follow-up with cardiology within a week so that they can re-evaluate you. We made several medication changes so please take as advised. Make sure you continue to take your Aspirin and Plavix. You also agreed to getting a Life Vest. We recommend cardiac rehab, like you have done in the past. In addition, you need to follow-up with your primary care provider, Dr. Reyna. If you experience symptoms of fevers, chest pain, SOB please go to the emergency department Follow-up Provider: Sera Reyna MD Follow-up with PCP in: 2 weeks Provider: Alexis Bennett MD Follow-up in: 1 week Cardiac Rehab: 1 week (1-2 weeks) Time spent 40 minutes Attending Statement I have seen and evaluated the patient at bedside in addition to directly supervising care provided by resident physician Dr Vyas on 02/19/2017 related to care and disposition. I agree with above documentation. Amalia Vyas DO Feb 19, 2017 15:07 Sharif Woo DO Feb 20, 2017 08:23
== END 2017-02-19 18:31 | disposition home or self-care (01) | DRG 247 ==
LOC: SED 18:15 → OBSVTOIN 21:14 → PCC 21:14
PROVIDERS: ADMIT Internal Medicine; ATTEND Internal Medicine
PROC: 4A023N8 Measurement of Cardiac Sampling and Pressure, Bilateral, Percutaneous Approach (ICD-10-PCS; principal; 2017-02-15)
PROC: B2111ZZ Fluoroscopy of Multiple Coronary Arteries using Low Osmolar Contrast (ICD-10-PCS; 2017-02-15)
PROC: 4A033BC Measurement of Arterial Pressure, Coronary, Percutaneous Approach (ICD-10-PCS; 2017-02-15)
PROC: 027145Z Dilation of Coronary Artery, Two Arteries with Two Drug-eluting Intraluminal Devices, Percutaneous Endoscopic Approach (ICD-10-PCS; 2017-02-17)
PROC: 027 Heart and Great Vessels, Dilation (ICD-10-PCS; 2017-02-17)
DX: I50.21 Acute systolic (congestive) heart failure (principal); I47.2 Ventricular tachycardia; R64 Cachexia; I25.110 Atherosclerotic heart disease of native coronary artery with unstable angina pectoris; T82.855A Stenosis of coronary artery stent, initial encounter; I35.0 Nonrheumatic aortic (valve) stenosis; I25.9 Chronic ischemic heart disease, unspecified; Z68.23 Body mass index [BMI] 23.0-23.9, adult; I10 Essential (primary) hypertension; E78.5 Hyperlipidemia, unspecified; Z87.891 Personal history of nicotine dependence; M35.3 Polymyalgia rheumatica; I48.0 Paroxysmal atrial fibrillation; D50.9 Iron deficiency anemia, unspecified; K21.9 Gastro-esophageal reflux disease without esophagitis; N40.0 Benign prostatic hyperplasia without lower urinary tract symptoms; K59.00 Constipation, unspecified; F41.8 Other specified anxiety disorders

== ENCOUNTER 2017-02-20 18:53 | Inpatient (IN) | payer MEDICARE ==
[~2017-02-20] VITALS: Ht 170.2 cm; Wt 71.1 kg
[~2017-02-20 18:53] MED LIST changes: +CHOL10008 PO; +CLOP75TA28 PO; +CLOP75TA3 PO; +EZET10TA PO; +FURO40TA4 PO; +GARL10002 PO; +ISOS120T6 PO; +LANS15TA3 PO; +LISI-571 PO; +LISI10TA PO; +METO25TA99 PO; +SENN-133 PO; +VIT1CAPS46 PO
[2017-02-20 19:02] VITALS: BP 99/51; PULSE 64; RESP 15; O2SAT 94
--- NOTE | 2017-02-20 19:03 | ED.REPORT ---
HPI-Dyspnea / Wheezing Date of Service Feb 20, 2017 ED Provider: Adrian Payan DO 78-year-old male with a history of coronary artery disease and recent stent placement presents with exertional dyspnea and chest tightness. He states that he is getting some exercise walking around his place out of doors using his walker. He became exceptionally winded. He sat down and still could not catch his breath. His chest felt tight. He went in the house that his called EMS. They presented and he looked ill. He was given nitroglycerin and aspirin. The nitroglycerin seemed to help and he presents now feeling much better. Pt was given nitro and 5 aspirin in the field with improvement. Nursing Notes Stated Complaint: SOB Chief Complaint: Respiratory Distress Nursing Notes Reviewed: Yes Allergies: Coded Allergies: latex (Verified Allergy, Intermediate, 01/28/16) Scheduled Aspirin (Aspirin) 81 Mg Tablet 81 MG PO DAILY Cholecalciferol (Vitamin D3) (Vitamin D3) 1,000 Unit Tab.chew 1,000 UNIT PO DAILY Clopidogrel (Clopidogrel) 75 Mg Tablet 75 MG PO DAILY Docusate Sodium (Colace) 100 Mg Capsule 200 MG PO BID Ezetimibe (Zetia) 10 Mg Tablet 10 MG PO DAILY Furosemide (Furosemide) 40 Mg Tablet 40 MG PO DAILY Garlic (Garlic) 1,000 Mg Capsule 1,000 MG PO DAILY Lisinopril (Lisinopril) 5 Mg Tablet 5 MG PO DAILY Metoprolol Succinate ER (Metoprolol Succinate ER) 25 Mg Tab.er.24h 25 MG PO DAILY Multivits-Min/FA/Lycopene/Lut (Centrum Silver Tablet) 1 Each Tablet 1 EACH PO DAILY Prednisone (PredniSONE) 5 Mg Tab 5 MG PO DAILY Sennosides (Senna) 8.6 Mg Tablet 17.2 MG PO HS Tamsulosin ER (Tamsulosin ER) 0.4 Mg Cap.er.24h 0.4 MG PO DAILY Vit C/E/Zn/Coppr/Lutein/Zeaxan (Preservision Areds 2 Softgel) 1 Each Capsule 1 EACH PO BID Scheduled PRN Lansoprazole ODT (Prevacid ODT) 15 Mg Tablet 15 MG PO DAILY PRN PRN For Indigestion Nitroglycerin SL (Nitrostat) 0.4 Mg Tab.subl 0.4 MG SL Q5MIN PRN PRN For Pain General Time Seen by MD: 19:02 Chief Complaint Shortness of breath Hx Obtained From: Patient Arrived By: Ambulance Sudden in Onset?: Yes Onset Occurred: 1 - 4 hours ago Context of Onset: Other (walking) Quality: Painful Severity: Current: Mild Severity: Maximum: Moderate Recent Healthcare: Recent doctor visit, Recent hospitalization Similar Sx Previous: No Past Medical History Past Medical History Notes: Wave Guide Assembler: Dr. Bennett PCP: Dr. Reyna Stent placement: Dr. Alexa Pablo at [facility] Past Medical History Coronary artery disease including occluded RCA, and high-grade stenosis to a small medium sized, rating his artery, mild disease in the LAD-in 2011, not amenable to percutaneous management at that time, on medical management History of SVT Hyperlipidemia Hypertension Chronic anemia History of chronic polymyalgia rheumatica, on steroids, low dose 1.25/day Reports: Coronary artery disease, GERD, Hypertension Reports: Atrial fibrillation Past Surgical History Total left knee replacement Cardiac catheterization in 2010 Hemorrhoidectomy TURP Cardiac stents Reports: Angioplasty Family History Reports: Coronary artery disease Smoking History Former Smoker Social History Alcohol Use: In recovery Drug Use: Denies drug use Ambulatory Status Walker Review of Systems Constitutional: Denies: Chills, Fever Respiratory: Reports: Non-productive cough (baseline), Shortness of breath Cardiovascular: Reports: Chest pain (tight), Dyspnea on exertion Musculoskeletal: Denies: Neck pain Complete sys rev & neg: except as marked. GI: Denies: Abdominal pain, Nausea, Vomiting Neurologic: Denies: Focal weakness Physical Exam Initial Vital Signs Vital Signs (First) Date Time Temp Pulse Resp B/P Pulse Ox O2 Delivery O2 Flow Rate FiO2 02/20/17 19:02 36.3 64 15 99/51 94 Nasal Cannula 3 Initial VS: Reviewed Head / Eyes: Atraumatic, Normocephalic Extremities: Vascular intact, Neuro intact, No swelling, No tenderness Skin: Warm, Dry, No cyanosis Neurologic: Alert, Oriented, Nonfocal Psychiatric: Mood/affect normal, Behavior normal, Normal thought content General/Constitutional: Awake, Alert Neck: Supple, Full range of motion, No JVD Respiratory / Chest: Atraumatic, Breath sounds NL, Breath sounds = bilat, No respiratory distress Cardiovascular: Heart rate NL, Regular rhythm, Heart sounds NL No lower leg edema Abdomen: Soft, Non-tender Interpretation & Diagnostics Lab Results Interpretation Result Diagram: 8191202/20/171912 Test 02/20/17 19:13 White Blood Count 7.7th/mm3 (3.8-10.1) Red Blood Count 4.44mil/mm3 (4.40-5.80) Hemoglobin 12.9g/dL (13.8-17.2) Hematocrit 38.1% (41.0-50.0) Mean Corpuscular Volume 85.8fL (81-100) Mean Corpuscular Hemoglobin 29.1pg (27.0-35.0) Mean Corpuscular Hemoglobin Concent 33.9% (32.0-37.0) Red Cell Distribution Width 14.9% (12.3-15.4) Platelet Count 165bil/L (150-400) Neutrophils (%) (Auto) 60.9% (40-74) Lymphocytes (%) (Auto) 22.7% (14-46) Monocytes (%) (Auto) 12.2% (4-12) Eosinophils (%) (Auto) 3.6% (0-5) Basophils (%) (Auto) 0.1% (0-3) Prothrombin Time 10.9sec (8.1-12.5) Prothromb Time International Ratio 1.02ratio Sodium Level 129mEq/L (134-144) Potassium Level 5.1mEq/L (3.5-5.2) Chloride Level 91mEq/L (97-108) Carbon Dioxide Level 19mmol/L (18-29) Blood Urea Nitrogen 44mg/dL (8-27) Creatinine 1.63mg/dL (0.76-1.27) Estimat Glomerular Filtration Rate 43mL/min (>59) Glucose Level 85mg/dL (60-99) Calcium Level 9.3mg/dL (8.5-10.1) Magnesium Level 2.3mg/dL (1.6-2.6) Total Bilirubin 0.5mg/dL (0.0-1.2) Aspartate Amino Transf (AST/SGOT) 26U/L (0-50) Alanine Aminotransferase (ALT/SGPT) 23U/L (0-44) Alkaline Phosphatase 78U/L (25-160) Troponin T 0.032ug/L (0.0-0.011) Pro-B-Type Natriuretic Peptide 5996pg/mL (0-486) Total Protein 7.7g/dL (6.4-8.4) Albumin 4.3g/dL (3.4-5.0) ECG Interpretation ECG Interpretation: Sinus rhythm, rate 62 Atrial premature complexes Probable left atrial enlargement Nonspecific intraventricular conduction delay Anteroseptal infarct, old No ST elevation, [place] Time: 19:15 Interpreted by: ED physician X-Ray Chest Interpretation Chest Xray Interpretation: IMPRESSION: 1. Mild left hemidiaphragm elevation and left basilar atelectasis. Dictated by: Jonah Smith M.D. on 02/20/2017 at 20:10 Approved by: Jonah Smith M.D. on 02/20/2017 at 20:15 View: Portable, 1 view Interpretation / Wet Read by: Interpret - Radiologist Re-Eval/Medical Decision Med Decision/Clinical Course This is concerning for exertional angina area since he does have stents placed will admit him for close observation and serial troponins. I consulted with her product management manager who concurs. EKG did not show evidence for STEMI. First troponin is elevated but he seems to be a chronic troponin Julian. Source of Hx: Old records Re-Evaluation/Progress : Time of Eval: 21:57 Re-Evaluation/Progress Note: Pt rechecked. Discussed plan for admission. Pt understands and agrees with plan. All questions addressed at this time. Consultation #1: Referral / Consult Name: Marya Schaefer MD Consulted With: Cardiology Call Returned at: 20:58 Certified Medical Biller: Agrees with eval, Agrees with plan Note: Discussed pt's case with product management manager, Dr. Schaefer. She agrees with recommendation of admission. Consultation #2: Referral / Consult Name: Papa Conrad MD Consulted With: Hospitalist Call Returned at: 21:10 Certified Medical Biller: Will see patient, Agrees with plan, Accepts admit Note: Discussed pt's case with hospitalist, Dr. Conrad. He accepts admission. Counseled Regarding: Diagnosis, Lab results, Need for admission Discharge & Departure Shift Change Sign-Out Response to Therapy: Improved Impression: Primary Impression: Chest pain Chest pain type: unspecified Qualified Code: R07.9 - Chest pain, unspecified Additional Impression: Exertional dyspnea Disposition: ADMITTED TO HOSPITAL Discharge Condition All VS Reviewed: Yes Condition: Stable Referrals: Sera Reyna MD (PCP) Scribe Attestation Portions of this note were transcribed by Crystal Griffin. I, Dr. Payan, personally performed the history, physical exam and medical decision-making; I reviewed and confirmed the accuracy of the information in the transcribed note. copies to: Sera Reyna MD, Todd P DO Feb 20, 2017 19:03 Crystal Griffin Feb 20, 2017 19:22
[2017-02-20 19:10] VITALS: BP 91/51; PULSE 68; RESP 17; O2SAT 94
[2017-02-20] MEDS ORDERED: 0.9% Sodium Chloride 500 ML IV ONE (19:20)
[2017-02-20 19:24] LABS: BASOPHILS % (AUTO) 0.1 % (0-3); EOSINOPHILS % (AUTO) 3.6 % (0-5); MONOCYTES % (AUTO) 12.2 % (4-12); Mean Corpuscular Hemoglobin 29.1 pg (27.0-35.0); Mean Corpuscular Volume 85.8 fL (81-100); NEUTROPHILS % (AUTO) 60.9 % (40-74); Platelet Count 165 bil/L (150-400)
[2017-02-20 19:56] LABS: INR 1.02 ratio
[2017-02-20 20:00] LABS: TROPONIN T 0.032 ug/L (0.0-0.011)
[2017-02-20 20:12] LABS: Magnesium 2.3 mg/dL (1.6-2.6)
--- NOTE | 2017-02-20 20:16 | DRSVH ---
PROCEDURE: X-RAY CHEST ONE VIEW, PORTABLE ([id number]) INDICATIONS: dyspnea TECHNIQUE: One view of the chest was acquired. COMPARISON: [facility], CR, XR CHEST 1VW (PORTABLE), 01/28/2016, 12:15. [facility], CT, CT ANGIO CHEST PE, 02/12/2017, 20:54. [facility], CR, XR CHEST 1VW (PORTABLE) , 02/12/2017, 19:17. FINDINGS: Surgical changes and devices: None. Lungs and pleura: Chronic interstitial prominence. Mild left hemidiaphragm elevation and left basila r atelectasis. No pleural effusions or pneumothorax. Mediastinum: Mediastinal contours appear normal. Heart size is normal. There is a moderate-sized h iatal hernia. Bones and chest wall: No suspicious bony lesions. Overlying soft tissues appear unremarkable. IMPRESSION: 1. Mild left hemidiaphragm elevation and left basilar atelectasis. Dictated by: Jonah Smith M.D. on 02/20/2017 at 20:10 Approved by: Jonah Smith M.D. on 02/20/2017 at 20:15
[2017-02-20 20:59] VITALS: BP 119/83; PULSE 68; RESP 21; O2SAT 95
[2017-02-20] MEDS ORDERED: Alum-Mag Hydrox-Simeth 30 mL Suspension PO PRN ×2 (22:00→22:15)
[2017-02-20] MEDS ORDERED: Ondansetron 2 mg/mL 2 mL Inj IVPUSH PRN ×2 (22:00→22:15)
[2017-02-20 22:22] VITALS: BP 97/62; PULSE 75; RESP 16; O2SAT 98
--- NOTE | 2017-02-20 22:54 | PCM.HPMED ---
Subjective Date of Service Feb 20, 2017 Primary Provider: Admitting Physician: Papa Conrad MD Primary Care Physician: Sera Reyna MD Attending Physician: Papa Conrad MD Chief Complaint: Shortness of Breath History of Present Illness: Patient is a pleasant 86 y/o male with a past medical history of CAD with stent x4, HTN, Hyperlipidemia, and moderate calcific aortic stenosis who was recently discharged from [facility] on 02/19/17 after an extensive cardiac workup with a balloon angioplasty as well as a LAD stent and RCA placed as per Dr. Richmond. The patient was scheduled for cardiac rehab the following week with cardiac followup on 03/02. The patient was discharged to home with ASA 81mg, Clopidogrel 75mg PO daily, Lisinopril 5m PO daily, and Metoprolol Succinate 25mg PO daily. Patient reports that he felt fine in the morning and took his daily medications at 10:00. At around 16:00 this afternoon , patient wanted to "get some exercise" and went for a walk around his home and parking lot. During his walk, he reports that he began to feel short of breath that would not be relieved with rest. His called EMS, who arrived and gave him NTG spray and 81mg ASA to which it brought him relief. Associated sxs include lightheadedness. Patient denies any CP, ABD pain, N/V/D, headache, constipation, fevers, or urinary symptoms. Upon arrival to the ED, the patient stated that he began to feel short of breath again which was relieved with 3L supplemental oxygen. Patient had a recent heart echo on 02/13 which revealed EF of 15-20% with severe global hypokinesis and moderate-severe dilated left ventricle and a mildly dilated right ventricle and mild to moderate tricuspid regurgitation. Review of Systems: Negative unless otherwise noted above Allergies Coded Allergies: latex (Verified Allergy, Intermediate, 01/28/16) Home Medications Aspirin (Aspirin) 81 Mg Tablet 81 MG PO DAILY Cholecalciferol (Vitamin D3) (Vitamin D3) 1,000 Unit Tab.chew 1,000 UNIT PO DAILY Clopidogrel (Clopidogrel) 75 Mg Tablet 75 MG PO DAILY Docusate Sodium (Colace) 100 Mg Capsule 200 MG PO BID Ezetimibe (Zetia) 10 Mg Tablet 10 MG PO DAILY Furosemide (Furosemide) 40 Mg Tablet 40 MG PO DAILY Garlic (Garlic) 1,000 Mg Capsule 1,000 MG PO DAILY Lisinopril (Lisinopril) 5 Mg Tablet 5 MG PO DAILY Metoprolol Succinate ER (Metoprolol Succinate ER) 25 Mg Tab.er.24h 25 MG PO DAILY Multivits-Min/FA/Lycopene/Lut (Centrum Silver Tablet) 1 Each Tablet 1 EACH PO DAILY Prednisone (PredniSONE) 5 Mg Tab 5 MG PO DAILY Sennosides (Senna) 8.6 Mg Tablet 17.2 MG PO HS Tamsulosin ER (Tamsulosin ER) 0.4 Mg Cap.er.24h 0.4 MG PO DAILY Vit C/E/Zn/Coppr/Lutein/Zeaxan (Preservision Areds 2 Softgel) 1 Each Capsule 1 EACH PO BID PMH Coronary artery disease History of SVT Hyperlipidemia Hypertension Chronic anemia History of chronic polymyalgia rheumatica Reports: Coronary artery disease, GERD, Hypertension Reports: Atrial fibrillation Surgical History Total left knee replacement Cardiac catheterization x2 (2010) (02/15/2017) Hemorrhoidectomy TURP Cardiac stents x6 Angioplasty Family History CAD Social History Occupation: Retired Hx Alcohol Use: Yes (occasional glass of wine or a beer) Hx Substance Use: No Hx Tobacco Use: Yes (1/2 PPD x 20 years, quit in 1967) Smoking Status: Former Smoker Living Arrangement: with Family Exam Vital Signs Vital Sign - Last Date Time Temp Pulse Resp B/P Pulse Ox O2 Delivery O2 Flow Rate FiO2 02/20/17 22:22 36.5 75 16 97/62 98 Room Air 02/20/17 19:10 3 Exam Constitutional: Awake, alert and oriented x4. No acute distress. Head: normocephalic and atraumatic Eyes: pupils equal round and reactive to light. Heart: irregularly irregular rhythm. 2/6 systolic murmur on the right upper sternal border. No peripheral edema. Lungs: clear to auscultation. no wheeze, rales, or rhonchi. ABD: soft, nontender, bowel sounds present throughout. Musculoskeletal: moves all four extremities appropriately. Diffuse swelling and deformation of the Proximal joints of the hands secondary to chronic rheumatoid arthritis. Neuro: CN II-XII intact. no focal deficits. Skin: warm, dry, chronic ecchymoses on bilateral upper extremities. Psych: appropriate mood and affect. Lab and Diagnostics Labs Item Value Date Time Red Blood Count 4.44 mil/mm3 02/20/171912 Mean Corpuscular Volume 85.8 fL 02/20/171912 Mean Corpuscular Hemoglobin 29.1 pg 02/20/171912 Mean Corpuscular Hemoglobin Concent 33.9 % 02/20/171912 Red Cell Distribution Width 14.9 % 02/20/171912 Neutrophils (%) (Auto) 60.9 % 02/20/171912 Lymphocytes (%) (Auto) 22.7 % 02/20/171912 Monocytes (%) (Auto) 12.2 % H 02/20/171912 Eosinophils (%) (Auto) 3.6 % 02/20/171912 Basophils (%) (Auto) 0.1 % 02/20/171912 Estimat Glomerular Filtration Rate 43 mL/min 02/20/171912 Calcium Level 9.3 mg/dL 02/20/171912 Magnesium Level 2.3 mg/dL 02/20/171912 Total Bilirubin 0.5 mg/dL 02/20/171912 Aspartate Amino Transf (AST/SGOT) 26 U/L 02/20/171912 Alanine Aminotransferase (ALT/SGPT) 23 U/L 02/20/171912 Alkaline Phosphatase 78 U/L 02/20/171912 Troponin T 0.032 ug/L H 02/20/171912 Pro-B-Type Natriuretic Peptide 5996 pg/mL H 02/20/171912 Total Protein 7.7 g/dL 02/20/171912 Albumin 4.3 g/dL 02/20/171912 Prothrombin Time 10.9 sec 02/20/171912 Prothromb Time International Ratio 1.02 ratio 02/20/171912 Result Diagram: 02/20/17191202/20/171912 12-lead ECG Sinus rhythm. Left atrial enlargement. Cardiac Echo Impressions Echocardiogram Report Interpretation Summary Left ventricular systolic function is severely reduced with the ejection fraction now estimated to be 15-20%. Compared to the prior exam, left ventricular function has markedly decreased now with severe global hypokinesis that appears worse in the anterior and anteroseptal segments which is new from the previous study. The left ventricle is moderate-severely dilated and is significantly larger compared to the previous study with diastolic parameters suggesting a pseudonormalization pattern, consistent with elevated filling pressures, likely higher compared to the previous study. The right ventricle is mildly dilated and right ventricular systolic function is borderline reduced but similar compared to the previous study. Pulmonary artery pressures cannot be estimated because of the lack of a measurable TR jet velocity. The left atrium is severely dilated and has significantly increased in size since the prior echo exam. There is mild to moderate mitral regurgitation and mild tricuspid regurgitation. Both are more prominent compared to the previous study. The aortic valve is not well visualized but appears to be moderately calcified with moderate but not severely reduced leaflet mobility. Assessment of the severity of aortic stenosis is challenging because of the markedly reduced systolic function but is likely in the moderate to severe range, likely similar to the previous study but consider other methods of assessment. The ascending aorta is moderately enlarged and has increased in size compared to the previous study. Assessment & Plan Patient is a pleasant 86 y/o male with a past medical history of CAD with stent x4, HTN, Hyperlipidemia, and moderate calcific aortic stenosis who was recently discharged from [facility] on 02/19/17 after an extensive cardiac workup with a balloon angioplasty as well as a LAD stent and RCA placed as per Dr. Richmond. Presenting to [facility] with shortness of breath on exertion. Acute Respiratory Failure, POA, Active. - Patient recently discharged from [facility] after cardiac balloon angioplasty and stent placement done by cardiology with acute SOB on exertion. - Patient was on 3L O2 in ED, now 98% on RA - Cardiology consult, as patient was recently d/c post cardiac cath and stent placement. stated that cardiology discussed "cardiac vest" on prior admission. Coronary Artery Disease, Chronic, POA, Active. - Patient had two stents placed on 02/17 - Most recent cardiac echo showed an EF of 15%-20% - Cardiology consult as above. - Continue home Plavix, - Continue ASA - NTG SL PRN for CP - Hold Metoprolol and Lisinopril as patient was hypotensive at 97/62 in the ED. Acute Kidney Injury, POA, Active. - SCr. 1.63, up from baseline of about 1.2. Likely secondary to contrast received with cardiac cath. -Patient received 500ml bolus in ED, gentle IVF if continued hypotension. PT EF 15-20% - Repeat CMP in AM - monitor I&Os -Chronic Normocytic Anemia, POA, Stable -likely secondary to chronic disease state, patient has h/o RA - Baseline ~12 - Transfuse if less than 8. H/o GERD, Chronic, Stable - Famotidine PO DVT ppx - Heparin Nausea ppx - Ondansetron Patient is limited interventions. Intubated if needed. DNR. Patient is admitted under inpatient status with expected length of stay greater than 2 midnights due to severity of presenting symptoms, risk of adverse event, and complexity of treatment plan. Pain Evaluation: Adequate Pain Control GI Prophylaxis: H2 neha VTE Prophylaxis: Sub-Q Heparin (Unfractionated) Resuscitation Status: Limited Interventions Limited Interventions: Intubation w [facility] Vent Attending Statement The patient was seen and examined together with Dr. Kyle on 02/20 and I agree with the history, exam and plan as outlined in the note above. Donnie Kyle DO Feb 20, 2017 22:54 Papa Conrad MD Feb 21, 2017 03:12
[2017-02-20] MEDS: Polyethylene Glycol (PEG) 17 Gm Powder PO PRN (23:06)
[2017-02-21] VITALS (9 sets, daily range): BP systolic 93–129; BP diastolic 55–76; PULSE 47–91; RESP 16–18; O2SAT 95–98
--- NOTE | 2017-02-21 00:01 | NUR ---
Admit To floor from ED at 2220. Alert and oriented. Able to stand for weight and walk to bed with standby assist. Denies dizziness or chest pain at this time. C/o shortness of breath with exertion and unable to lie flat. Lungs clear, but decreased. Given Miralax and Senna per request, then NPO. Tele SR with PAC's and rate in 70's. Discussed plan of care. No questions at this time.
[2017-02-21] MEDS: Heparin 5,000 Unit/mL Inj SUBQ SCH ×3 (00:39→17:12)
[2017-02-21 01:16] LABS: APPEARANCE,URINE CLEAR (CLEAR,HAZY); COLOR,URINE YELLOW (YELLOW); OCCULT BLOOD,URINE NEGATIVE (NEGATIVE); UROBILINOGEN,URINE NORMAL (NORMAL)
[2017-02-21] MEDS: predniSONE 5 mg Tablet PO SCH (10:15)
--- NOTE | 2017-02-21 14:23 | NUR ---
Case Management: ACKER[employer] and Medicare Part D Pamphlet delivered and explained to patient and spouse at bedside. Signed original placed in chart. Copy left at bedside Ivett Odell RN
--- NOTE | 2017-02-21 14:23 | CONS ---
[address] [address] CONSULTATION REPORT PATIENT: VIANEY SMITH : 1930 MR#: [id number] ADMIT: 02/20/2017 JOB ID: [id number] DATE OF SERVICE: 02/21/2017 REASON FOR CONSULT: I was asked by hospital team to consult on this patient given admission with increased shortness of breath. HISTORY OF PRESENT ILLNESS: The patient is an 86-year-old man with past medical history significant for coronary disease. Approximately a year ago, his ejection fraction was around 50%. He had findings of an occluded ramus intermedius which was stented. He also had an occluded right coronary artery which was ultimately stented in a second procedure. This was complicated by a perforation requiring pericardiocentesis. The LAD was assessed by flow wire, with an FFR of 0.92. After stenting of both vessels, he was doing very well. He had no chest pain, no chest pressure, no shortness of breath. He says around October or November, he started getting more shortness of breath, having some difficulties lying flat in bed. Also with some atypical chest pain. He was seen by his primary public health service officer, who recommended stress testing. However, he did not think he could perform stress testing because he could not lie flat. Ultimately, he was admitted on February 12 with concerns about heart failure. He had an echocardiogram performed that admission that showed that his LV was dilated with severely reduced global systolic function. He was felt to have at least moderate aortic stenosis. With this admission, he was diuresed. He had a right heart cath, which showed a mean PA wedge pressure of 18, PA pressure 38/20, mean right atrial pressure was 5. Cardiac output was estimated at 4.1. During that test, he also had left coronary angiography and a flow wire of the LAD which was identified at 0.77. There was decent flow in the left anterior descending artery. There was also a stenosis appreciated in the area of stenting in the ramus. The patient was taken to the electrical laboratory technician and had a stent placed to the proximal LAD as well as a stent placed in the ramus. He was getting IV diuretic during that admission and was able to walk around the halls feeling pretty well. He was discharged home on Wednesday. There was some concern by Dr. Osborne about discharging him so quickly and she wanted him to get a Life Vest, given his decreased LV function. By Wednesday, he was taking oral diuretic but continued to have some problems with orthopnea. Finally, he started feeling short of breath once again and went to the ED. Did not have chest pain or chest pressure. He just felt that he was getting really short of breath. He had some lightheadedness as well. He was put on 3 L of oxygen with some improvement. Troponins have been in the borderline area as they have on previous admissions. There were no acute EKG changes. His EKG shows a sinus rhythm with an IVCD and some minor sinus pauses. The patient says that he has also been noticing that when he rolls over in bed, he has periods of very high heart rates. His heart rates are somewhat lower at times as well. Today he is sitting in bed. He denies acute shortness of breath. He denies chest pain, chest pressure. He has not had problems with lower extremity edema. PAST MEDICAL HISTORY/PROBLEM LIST: 1. Coronary disease. 2. History of SVT. 3. Hyperlipidemia. 4. Hypertension. 5. Chronic anemia. 6. History of PMR. PROCEDURES PERFORMED: Stents about a year ago to a ramus as well as opening of a chronically occluded right coronary artery. LAD was not felt to be hemodynamically significant. He did very well after that. EF was around 50%. As noted, CHF with recent admission with severely decreased heart function and dilated ventricle. Recent stents to proximal LAD and to ramus intermedius in areas of restenosis. MEDICATIONS: Include: 1. Aspirin 81 mg a day. 2. Plavix 75 a day. 3. Colace 100 mg capsules, 200 mg b.i.d. 4. Zetia 10 mg daily. 5. Lasix 40 mg daily. 6. Garlic. 7. Lisinopril 5 mg daily. 8. Metoprolol succinate 25 mg. 9. Prednisone 5 mg daily. 10. Tamsulosin. ALLERGIES: LATEX. SOCIAL HISTORY: Occasional glass of wine. Quit smoking in 1967. REVIEW OF SYSTEMS: Overall health: No fevers, chills, night sweats, or weight loss. GI: No problems with ulcers, blood in stool. : No dysuria, hematuria. Pulmonary: Increased shortness of breath. Cardiac: As per HPI. Endocrine: No heat or cold intolerance. Heme: No easy bruising or bleeding. Derm: No rash or skin breakdown. Neuro: No chronic headaches. Some dizziness. Musculoskeletal: No acute issues. Ophtho: No acute issues. ENT: No change in hearing, difficulty swallowing. All other review of systems on a 12-point review of system is negative. PHYSICAL EXAMINATION: Blood pressure is 97/62. Before his discharge, his blood pressures were around the 114 range, not significantly elevated. Heart rates in the range of 47-75. General: In no acute distress. Speaking in full sentences without apparent shortness of breath. Head and neck exam: Normocephalic, atraumatic. ENT: Hearing grossly intact. Mucous membranes moist. Ophtho: Grossly intact. Neck: No clear JV distention appreciated. Heart exam: Occasionally irregular with a systolic murmur appreciated intermittently at the left sternal border. Lungs: Somewhat bronchial-type versus decreased breath sounds at the mid left lung. Back: No CVA tenderness to palpation. Abdomen soft, nontender. Extremities: Warm, no appreciable edema. Vascular: Carotids without bruits appreciated. Skin without breakdown appreciated. Neuro: Alert and is interactive. Gait is not tested. Psych: Appropriate mood and affect. EKG shows sinus rhythm with IVCD, stable from prior EKGs with some brief sinus arrhythmia. Status on the exam carried ENT hearing grossly intact. CURRENT MEDICATIONS: Include: 1. Zetia. 2. Prednisone. 3. Plavix 75. 4. Aspirin 81. 5. Furosemide 40 daily. 6. Subcu heparin. He is not on any beta neha; probably held because of relative hypotension. LABORATORIES: Show a white count 7.7, H and H 12.9, 38.1, platelets of 165,000. Sodium 129, potassium 5.1. BUN and creatinine 44 and 1.63, now elevated from discharge. Troponin in the same range of 0.032. BNP 5996. IMAGING: Shows a chest x-ray with mild left hemidiaphragm elevation and left basilar atelectasis. IMPRESSION: The patient comes in with most likely heart failure symptoms. He denies chest pain, chest pressure. He has findings of a diminished ejection fraction. He may have responded better to intravenous diuretics when he was in the hospital. It is not clear. His renal function has worsened. PLAN: 1. I would consider IV diuresis in this gentleman. 2. Even though he is relatively hypotensive, it would be nice to get him on a very low-dose beta neha, even 12.5 b.i.d. of metoprolol, to prevent any arrhythmias. If he has any significant ventricular ectopy that is persistent, I think we are going to have to put him on amiodarone until we get a better blood pressure on him. I would only opt for that if this becomes an issue. 3. Continue his other cardiac medications. I spent one hour and 15 minutes reviewing the patient's records (including outside studies/treatments), reviewing his current notes and studies, speaking with the patient along with examination and communicating with the hospital team. THEE
--- NOTE | 2017-02-21 15:51 | NUR ---
Hypotention/ VTach/ Tele/ Activity: BP 94/68 (77) and Lasix 40mg PO scheduled for this morning. MD notified. Ordered to hold Lasix this morning. @ 0848 dental service technician reported 14 beats of VTach with rate in 120's. Patient was assessed and reported SOB and stated he had to sit up in bed. Denies CP, chest pressure or palpitations. Placed 2L NC for comfort. SpO2: high 90's. VSS. MD was notified and Turbine Attendant was also notified when she arrived for cardiac consult. No further orders at this time. Tele: Sinus 40-80's with PVC and IVCD. Patient able to tolerate ambulating in room and halls with SBA and use of FWW without report of CP or dizziness. Mild SOB noted on exertion. Patient A&O X3. Cooperative with care. VSS. and uses call light for needs. Frequent rounding in place.
[2017-02-21] MEDS ORDERED: Furosemide 10 mg/mL 2 mL Inj IVPUSH ONE ×3 (16:15→19:30)
--- NOTE | 2017-02-21 17:13 | NUR ---
Social Work: Initial Assessment/Multi-Disciplinary Rounds D: EMR reviewed. Please see Initial Assessment linked to this note for more information. Pt is a readmit from 02/14. Pt is an 86 y/o male admitted Franco - no readmit risk score assigned - dyspnea per H&P. Pt's insurance is Medicare and [employer] Supplemental. PCP is Sera Reyna MD. SW met with pt at bedside to conduct initial assessment. Pt was alert and oriented x3. SW explained role, wrote phone number on white board, provided [facility] Discharge Planning Checklist, and encouraged pt to contact SW for any discharge planning questions/needs. Pt lives at home with his spouse in [place] where he is independent with ADLs and uses a walker for ambulation. Pt does not drive and only leaves his home for trips to caodaism functions, doctors appointments, and the grocery store. Pt uses [employer], taxi services, and friends for transportation. Pt discussed in multidisciplinary rounds. Per multidisciplinary rounds, pt is not medically stable for discharge, anticipate 2-3 more pending cardiology. SW received MD order for HH coordination. MD has not yet specified HH needs as pt is still pending work-up from Cardiology and PT. SW discussed HH with pt. Pt states his spouse is an RN. Pt also stated that his spouse has been needing more assistance with house cleaning. SW asked if pt would be willing to consider HH - even though his spouse is a former RN - because his spouse is needing more assistance. Pt agreed to review HH choice list with his spouse and consider HH after discussing with his spouse. SW provided HH choice list. A: Pt is independent at baseline and has capacity for self-care. MD ordered HH coordination - choice list provided - considering HH for RN needs but will wait to determine definitive HH service(s) pending cardiology. P: Pt anticipated to discharge home with HH. HH disciplines/services to be determined by MD based on pt's progress. HH ordered by MD. Choice list provided. Pt will consider HH after discussing with his spouse. No other SW needs identified at this time. No other MD orders received. SW will continue to follow for needs. SHARON Goldstein Addendum: 02/21/17 at 1724 by NESTOR SAWYER Amended: Links added.
--- NOTE | 2017-02-21 19:56 | PCM.PNMED ---
Subjective Date of Service Feb 21, 2017 Subjective overnight: No acute events overnight Today: The patient continues to have notable orthopnea preferring to sit up as often as possible. The patient denies any chest pain ever during this hospitalization or prior to admit. The patient states that he would like to try walking around the [facility] always believes his shortness of breath is improved significantly since yesterday. The patient denies any worsening numbness in his hands or feet however has chronic medial nerve compression in his hands leading to carpal tunnel syndrome. The patient denies swelling in his legs. Exam Vital Signs Vital Sign - Last Date Time Temp Pulse Resp B/P Pulse Ox O2 Delivery O2 Flow Rate FiO2 02/21/17 07:18 36.5 47 18 94/68 97 Room Air 02/20/17 19:10 3 Intake and Output 02/20/17 02/20/17 02/21/17 Cumulative From/Thru 15:00 23:00 07:00 02/20/17 19:02 - 02/21/17 06:11 Intake Total 500 ml 0 ml 500 ml Output Total 200 ml 200 ml Balance 500 ml -200 ml 300 ml Intake Oral 0 ml 0 ml IV Total 500 ml 500 ml Output Urine Total 200 ml 200 ml Exam General: Alert and cooperative senior male sitting up in a chair in no acute distress Eyes: Pupils equal round and reactive to light, extraocular motion intact, anicteric sclera, noninjected conjunctiva HENT: Normocephalic atraumatic, moist mucous membranes without central cyanosis , oropharynx clear without purulent exudate or cobblestoning mucosa Neck: Supple, trachea midline, without thyromegaly, notable JVD which significantly improves with inhalation Cardiovascular: Regular rate and regular rhythm, S1-S2 present, no S3-S4, without murmurs rubs or gallops noted Lungs: Mild coarse breath sounds noted bilaterally in the posterior inferior lung hutchinson without wheezing or rhonchi Abdomen: Soft, nontender, nondistended, tympanic to percussion, normal active bowel sounds, without organomegaly Extremities: No cyanosis clubbing or edema noted, pulses intact bilaterally at dorsalis pedis and radial : No Ramey catheter in place Skin: Warm and dry Neuro: Nonfocal neurologic exam Psych: Normal mood and affect Lab and Diagnostics Result Diagram: 02/20/17191202/20/171912 12-lead ECG Sinus rhythm. Left atrial enlargement. Cardiac Echo Impressions Echocardiogram Report Interpretation Summary Left ventricular systolic function is severely reduced with the ejection fraction now estimated to be 15-20%. Compared to the prior exam, left ventricular function has markedly decreased now with severe global hypokinesis that appears worse in the anterior and anteroseptal segments which is new from the previous study. The left ventricle is moderate-severely dilated and is significantly larger compared to the previous study with diastolic parameters suggesting a pseudonormalization pattern, consistent with elevated filling pressures, likely higher compared to the previous study. The right ventricle is mildly dilated and right ventricular systolic function is borderline reduced but similar compared to the previous study. Pulmonary artery pressures cannot be estimated because of the lack of a measurable TR jet velocity. The left atrium is severely dilated and has significantly increased in size since the prior echo exam. There is mild to moderate mitral regurgitation and mild tricuspid regurgitation. Both are more prominent compared to the previous study. The aortic valve is not well visualized but appears to be moderately calcified with moderate but not severely reduced leaflet mobility. Assessment of the severity of aortic stenosis is challenging because of the markedly reduced systolic function but is likely in the moderate to severe range, likely similar to the previous study but consider other methods of assessment. The ascending aorta is moderately enlarged and has increased in size compared to the previous study. Assessment & Plan Patient is a pleasant 86 y/o male with a past medical history of CAD with stent x4, HTN, Hyperlipidemia, and moderate calcific aortic stenosis who was recently discharged from [facility] on 02/19/17 after an extensive cardiac workup with a balloon angioplasty as well as a LAD stent and RCA placed as per Dr. Richmond. Presenting to [facility] with shortness of breath on exertion. Systolic congestive heart failure with reduced ejection fraction, acute, present on admission - Patient with symptoms of orthopnea as well as notable JVD with a clinical diagnosis of increased right-sided filling pressures - Echo performed on 02/13 shows an EF of 15-25% with global hypokinesis inconsistent with ischemic cardiomyopathy - Patient has low normal blood pressure with systolics in the 90s to 100s - Serum creatinine of 1.63 improved to 1.33 after 500 mL's of IV hydration in the ED - low-dose Lasix 10 mg IV when necessary monitoring for blood pressure Acute Kidney Injury, POA, Active. - SCr. 1.63 at admission, up from baseline of about 1.2. Likely secondary to contrast received with cardiac cath 2 - Patient received 500ml bolus in ED, with improvement in creatinine down to 1.3 , this is possibly expected improvement from [facility] - monitor I&Os and CMP - Avoid aggressive diuresis Acute mild hypotension, present on admission - Likely secondary to acute CHF exacerbation with global hypokinesis and an EF of 15-20% - Given patient's improvement in creatinine after 500 mL's IV fluids may consider conservative fluid boluses with 500 mL some the future - IV Lasix failed to improve the patient's blood pressure - May consider pressor support with phenylephrine or norepinephrine, avoid dobutamine or epinephrine given significant ectopic beats Coronary Artery Disease, Chronic, POA, Active. - Patient had two stents placed on 02/17 - Most recent cardiac echo showed an EF of 15%-20% - Cardiology consult as above. - Continue home Plavix - Continue ASA - NTG SL PRN for CP - Hold Metoprolol and Lisinopril as patient was hypotensive at 97/62 in the ED. -Chronic Normocytic Anemia, POA, Stable -likely secondary to chronic disease state, patient has h/o RA - Baseline ~12 - Transfuse if less than 8. H/o GERD, Chronic, Stable - Famotidine PO Acute Respiratory Failure, POA, resolved - Patient recently discharged from [facility] after cardiac balloon angioplasty and stent placement done by cardiology with acute SOB on exertion. - Patient was on 3L O2 in ED, now 98% on RA - Cardiology consult, as patient was recently d/c post cardiac cath and stent placement. stated that cardiology discussed "cardiac vest" on prior admission. DVT ppx - Heparin Nausea ppx - Ondansetron CODE STATUS DNR/DNI Disposition: Patient will likely remain inpatient for at least 1-2 more days to determine patient's volume status for safe discharge GI Prophylaxis: H2 neha VTE Prophylaxis: Sub-Q Heparin (Unfractionated) VTE Mechanical Devices: Intermittant Pneumatic CD Resuscitation Status: DNR/DNI:Do Not Resuscitate/Intubate Limited Interventions: BiPAP, Medications and IV Fluid Time spent 25 minutes Attending Statement I have seen and evaluated patient at bedside in addition to directly supervising care provided by resident physician Dr Moser on 02/21/2017. I agree with above documentation. Appreciating the consultation of cardiology, Dr. Schaefer. Recurrent nature of condition and persistent symptoms remain to be completely understood though sever underlying heart disease developing in last year is clear. Contrast induced nephropathy for recent cath complicate diuresis. Continue close observation. Chris Moser DO Feb 21, 2017 09:58 Sharif Woo DO Feb 22, 2017 07:34
[2017-02-22] VITALS (7 sets, daily range): BP systolic 89–106; BP diastolic 60–71; PULSE 55–81; RESP 16–20; O2SAT 97–100
[2017-02-22] MEDS: Heparin 5,000 Unit/mL Inj SUBQ SCH ×3 (02:14→16:11)
[2017-02-22 02:40] LABS: Mean Corpuscular Hemoglobin 28.4 pg (27.0-35.0); Mean Corpuscular Volume 86.3 fL (81-100)
[2017-02-22 03:29] LABS: Magnesium 2.4 mg/dL (1.6-2.6); Phosphorus 4.2 mg/dL (2.5-4.9)
--- NOTE | 2017-02-22 07:39 | NUR ---
BPs/Urine Output Pt's SBP remained in the 90s with 10mg IVP Lasix as long as pt was lying flat on back or sitting up. Pt's urine output for the nightshift was a little over 2L. Pt did have a post void residual bladder scan and the per the bladder scanner the pt retained 0ml of urine after voiding.
[2017-02-22] MEDS: predniSONE 5 mg Tablet PO SCH (08:47)
--- NOTE | 2017-02-22 11:16 | NUR ---
Case Management: Clarification of patient status: inpatient per MD order on 02/22/17. Micheal Zarate RN
--- NOTE | 2017-02-22 12:09 | NUR ---
Case Management: [facility] delivered and explained to patient and spouse. Signed original placed in chart. Copy left at bedside. Ivett Odell RN
[2017-02-22] MEDS ORDERED: Furosemide 10 mg/mL 2 mL Inj IVPUSH ONE (15:20)
[2017-02-22] MEDS: Polyethylene Glycol (PEG) 17 Gm Powder PO PRN (20:24)
--- NOTE | 2017-02-22 23:00 | PCM.PNMED ---
Subjective Date of Service Feb 22, 2017 Subjective Patient is a pleasant 86 y/o male with a past medical history of CAD with stent x4, HTN, Hyperlipidemia, and moderate calcific aortic stenosis who was recently discharged from [facility] on 02/19/17 after an extensive cardiac workup with a balloon angioplasty as well as a LAD stent and RCA. Presenting to [facility] with shortness of breath on exertion. Per tele, overnight he was in A fib with rate in 60s-90s. Today, patient states that he feels much better in comparison to when he first presented to the hospital. He denies visual changes, headaches, chest pain, SOB , nausea, vomiting, abdominal pain, bowel changes and dysuria. Exam Vital Signs Vital Sign - Last Date Time Temp Pulse Resp B/P Pulse Ox O2 Delivery O2 Flow Rate FiO2 02/22/17 20:00 36.5 72 20 103/69 99 Room Air 02/22/17 08:42 2.00 Intake and Output 02/21/17 02/21/17 02/22/17 Cumulative From/Thru 15:00 23:00 07:00 02/20/17 19:02 - 02/22/17 06:32 Intake Total 1240 ml 400 ml 2140 ml Output Total 1150 ml 2150 ml 3500 ml Balance 90 ml -1750 ml -1360 ml Intake Oral 1240 ml 400 ml 1640 ml IV Total 500 ml Output Urine Total 1150 ml 2150 ml 3500 ml # Voids 3 7 10 # Bowel Movements 2 2 Exam General: Cachectic male Patient is sitting on side of bed, AAOX3, not in acute distress, cooperative and pleasant. HEENT: head normocephalic and atraumatic, PERRLA, EOMI, no scleral icterus, noninjected conjunctiva Neck: neck supple, non-tender, no lymphadenopathy, trachea midline, JVD evident CV: regular rate and rhythm, s1 and s2 heard, no murmur, radial pulses 2+ and equal bilaterally, distant heart sounds, 2/6 systolic ejection murmur, no edema Lungs: Clear to auscultation bilaterally, no wheezes, rales or rhonchi, no increased work of breathing Abdomen: normoactive bowel sounds on 4Q, soft, non-distended, non-tender to palpation, no organomegally, Skin: warm and dry Neuro: Grossly neurologically intact, cranial nerves II through XII intact Psych: Normal mood and affect IVs and Medications Medications Reviewed: Medications were reviewed in detail Lab and Diagnostics Result Diagram: 02/22/17 0223 02/22/17 1550 12-lead ECG Sinus rhythm. Left atrial enlargement. Cardiac Echo Impressions Echocardiogram Report Interpretation Summary Left ventricular systolic function is severely reduced with the ejection fraction now estimated to be 15-20%. Compared to the prior exam, left ventricular function has markedly decreased now with severe global hypokinesis that appears worse in the anterior and anteroseptal segments which is new from the previous study. The left ventricle is moderate-severely dilated and is significantly larger compared to the previous study with diastolic parameters suggesting a pseudonormalization pattern, consistent with elevated filling pressures, likely higher compared to the previous study. The right ventricle is mildly dilated and right ventricular systolic function is borderline reduced but similar compared to the previous study. Pulmonary artery pressures cannot be estimated because of the lack of a measurable TR jet velocity. The left atrium is severely dilated and has significantly increased in size since the prior echo exam. There is mild to moderate mitral regurgitation and mild tricuspid regurgitation. Both are more prominent compared to the previous study. The aortic valve is not well visualized but appears to be moderately calcified with moderate but not severely reduced leaflet mobility. Assessment of the severity of aortic stenosis is challenging because of the markedly reduced systolic function but is likely in the moderate to severe range, likely similar to the previous study but consider other methods of assessment. The ascending aorta is moderately enlarged and has increased in size compared to the previous study. Assessment & Plan Patient is a pleasant 86 y/o male with a past medical history of CAD with stent x4, HTN, Hyperlipidemia, and moderate calcific aortic stenosis who was recently discharged from [facility] on 02/19/17 after an extensive cardiac workup with a balloon angioplasty as well as a LAD stent and RCA placed as per Dr. Richmond. Presenting to [facility] with shortness of breath on exertion. Systolic congestive heart failure with reduced ejection fraction, acute, present on admission - Patient with symptoms of orthopnea as well as notable JVD with a clinical diagnosis of increased right-sided filling pressures - Echo performed on 02/13 shows an EF of 15-25% with global hypokinesis inconsistent with ischemic cardiomyopathy - Patient has low normal blood pressure with systolics in the 90s to 100s - Serum creatinine of 1.63 improved to 1.33 after 500 mL's of IV hydration in the ED - low-dose Lasix 10 mg IV when necessary monitoring for blood pressure -Will need to discuss various options for safe discharge with CHF management -Cardiology has been consulted and we appreciate their input. Acute Kidney Injury, POA, Active. - SCr. 1.63 at admission, up from baseline of about 1.2. Likely secondary to contrast received with cardiac cath 2 - Patient received 500ml bolus in ED, with improvement in creatinine down to 1.3 , this is possibly expected improvement from ZAFAR - monitor I&Os and CMP - Avoid aggressive diuresis Acute mild hypotension, present on admission - Likely secondary to acute CHF exacerbation with global hypokinesis and an EF of 15-20% - Given patient's improvement in creatinine after 500 mL's IV fluids may consider conservative fluid boluses with 500 mL some the future - IV Lasix failed to improve the patient's blood pressure - May consider pressor support with phenylephrine or norepinephrine, avoid dobutamine or epinephrine given significant ectopic beats Coronary Artery Disease, Chronic, POA, Active. - Patient had two stents placed on 02/17 - Most recent cardiac echo showed an EF of 15%-20% - Cardiology consult as above. - Continue home Plavix - Continue ASA - NTG SL PRN for CP - Hold Metoprolol and Lisinopril as patient was hypotensive at 97/62 in the ED. -Chronic Normocytic Anemia, POA, Stable -likely secondary to chronic disease state, patient has h/o RA - Baseline ~12 - Transfuse if less than 8. H/o GERD, Chronic, Stable - Famotidine PO Acute Respiratory Failure, POA, resolved - Patient recently discharged from [facility] after cardiac balloon angioplasty and stent placement done by cardiology with acute SOB on exertion. - Patient was on 3L O2 in ED, now 98% on RA - Cardiology consult, as patient was recently d/c post cardiac cath and stent placement. stated that cardiology discussed "cardiac vest" on prior admission. DVT ppx - Heparin Nausea ppx - Ondansetron CODE STATUS DNR/DNI Disposition: Patient will likely remain inpatient for at least 1-2 more days to determine patient's volume status for safe discharge Pain Evaluation: Adequate Pain Control GI Prophylaxis: H2 neha VTE Prophylaxis: Sub-Q Heparin (Unfractionated) VTE Mechanical Devices: Intermittant Pneumatic CD Resuscitation Status: DNR/DNI:Do Not Resuscitate/Intubate Limited Interventions: BiPAP, Medications and IV Fluid Attending Statement The patient was seen and examined together with Dr. Vyas on 02/22/2017 and I agree with the history, exam and plan as outlined in the note above. . Amalia Vyas DO Feb 22, 2017 23:00 Mukesh Monique MD Feb 25, 2017 13:50
[2017-02-23] VITALS (8 sets, daily range): BP systolic 94–112; BP diastolic 59–73; PULSE 64–80; RESP 16–20; O2SAT 95–100
[2017-02-23] MEDS: Heparin 5,000 Unit/mL Inj SUBQ SCH ×3 (00:14→16:55)
--- NOTE | 2017-02-23 01:18 | NUR ---
tele/respiratory pt a/o times three, coop, calm, amb with fww with sba to br to void, ls initially right base fine crackles and left side crackles t/o, at mn ls- left base crackles, ra sats upper 90's, mild sob with exertion, resp rate =20 bpm, saline lock wnl, denies n/v, one bm, tele- sr ivcd, pac's, murmur present, denies cp, bruising bilaterally on arms, large healing soft bruise to right groin/right upper leg, same as per report, see assessment charting, pt calm/pleasant, no complaints during the night,
[2017-02-23 03:20] LABS: BASOPHILS % (AUTO) 0.2 % (0-3); MONOCYTES % (AUTO) 13.7 % (4-12); Mean Corpuscular Hemoglobin 28.7 pg (27.0-35.0); Mean Corpuscular Volume 85.8 fL (81-100); NEUTROPHILS % (AUTO) 59.8 % (40-74); Platelet Count 149 bil/L (150-400)
--- NOTE | 2017-02-23 06:36 | NUR ---
sob this am pt c/o feeling sob this am, ls- lll crackles, ra sat=99%, pt placed on two liters o2 per nc and states he feels better with o2 on, pt sitting up in chair watching tv,
[2017-02-23] MEDS: predniSONE 5 mg Tablet PO SCH (08:35)
--- NOTE | 2017-02-23 11:47 | NUR ---
Palliative Care Palliative Care received verbal order from Dr Monique 02/23/17 to assist with goals of care (hospice?). Patient admitted 02/20/17. He resides at home with . Sue () [phone], Marion (daughter) [phone], Palliative Care to follow. Tati Hooks
--- NOTE | 2017-02-23 12:49 | PCM.PNCARD ---
Subjective Date of service Feb 23, 2017 Chief Complaint Shortness of breath. History of Present Illness 86yoM hx systolic CHF, CAD with stent x6, HTN, HLD, aortic stenosis presents with shortness of breath and orthopnea the day after being discharged from [facility] for CHF exacerbation and ischemic cardiomyopathy s/p 2 stents. He had felt well on discharge the day prior, and went out for a walk the day of readmission, but began to feel significantly short of breath after 10 minutes of walking that did not improve with rest. He also reports orthopnea, and has been sitting up in a chair to sleep. He also reports occasional palpitations and mild dizziness. He denies chest pain, edema, or syncope. Overnight, he was significantly orthopneic and had to be sat up. He felt improved on sitting up and being given oxygen. Today he states he feels well while sitting up in a chair but feels he would become short of breath again if he laid down or got up to the bathroom. Telemetry overnight showed sinus rhythm with PACs. PROBLEM LIST: # Systolic CHF (echo 02/13/17 with 15-20% EF and severe global hypokinesis) # Hypotension # Coronary disease s/p 6 stents # History of SVT. # Hyperlipidemia. # Hypertension. # Chronic anemia. Subjective: Comprehensive review of systems conducted and was negative except for the pertinent positives listed above. Exam Vital Signs Vital Sign - Last Date Time Temp Pulse Resp B/P Pulse Ox O2 Delivery O2 Flow Rate FiO2 02/23/17 08:08 36.5 67 18 95/73 100 Nasal Cannula 1.50 Intake and Output 02/22/17 02/22/17 02/23/17 Cumulative From/Thru 15:00 23:00 07:00 02/20/17 19:02 - 02/23/17 06:26 Intake Total 787 ml 480 ml 3407 ml Output Total 1150 ml 1750 ml 6400 ml Balance -363 ml -1270 ml -2993 ml Intake Oral 787 ml 480 ml 2907 ml IV Total 500 ml Output Urine Total 1150 ml 1750 ml 6400 ml # Voids 10 # Bowel Movements 1 3 Additional Information: General appearance: No apparent distress, well-nourished, pleasant, cooperative HEET: Normocephalic atraumatic, no scleral icterus, tongue midline, mucous membranes moist Neck: supple, murmur appreciated Cardiovascular: RRR, normal S1 and normal S2, systolic murmur at left sternal border, no JVD, no peripheral edema Respiratory: Decreased breath sounds left lower lung Abdomen: Soft, nontender, nondistended, + bowel sounds Neuro: Alert, no facial droop, tongue midline, able to walk down the hallway without any difficulty Psych: Appropriate affect Skin: No rashes on face, neck, and lower extremities Lab and Diagnostics Result Diagram: 02/23/17 0245 02/23/17 0245 Assessment & Plan Assessment # Systolic CHF (echo 02/13/17 with 15-20% EF and severe global hypokinesis): He continues to be significantly orthopneic overnight. Diuresis has been difficult due to his hypotension. Will restart lisinopril and metoprolol at low dose given his hypotension. Discussed goals of care with the patient and the patient is willing to discuss hospice options with Palliative Care. He is currently DNR/ DNI. - Start lisinopril 2.5 mg qhs - Start metoprolol XL 12.5 daily - Diurese with furosemide 20mg daily or 40mg daliy as tolerated - Palliative care to meet with patient and and discuss hospice. # Hypotension: Likely secondary to severe cardiomyopathy. Will monitor BP closely when diuresing. - Diurese carefullly - Will hold lisinopril and metoprolol if SBP <90. - Avoid pressors or inotropes if possible, as pt is discussing possible hospice with Palliative Care. Problems: Pain Evaluation: Adequate Pain Control GI Prophylaxis: H2 enha VTE Prophylaxis: Sub-Q Heparin (Unfractionated) VTE Mechanical Devices: Intermittant Pneumatic CD Resuscitation Status: DNR/DNI:Do Not Resuscitate/Intubate Limited Interventions: BiPAP, Medications and IV Fluid Time spent I spent 60 minutes of my time reviewing the patient's chart, examining the patient, coordinating care with the primary team and with palliative care, and speaking with the patient and family educating them about the condition and answering the questions. Attending Statement ATTENDING ADDENDUM: I saw, examined, and evaluated the patient with Dr. Mp Carbajal on 02/23/2017 and agree with the note as above along with my edits. Mp Carbajal Feb 23, 2017 11:52 Arthur Jean-Baptiste MD Feb 23, 2017 13:12
[2017-02-23] MEDS: MeTOProlol XL 25 mg ER24 Tablet PO SCH (13:54)
--- NOTE | 2017-02-23 14:14 | NUR ---
Social Work: Continued Discharge Planning/Multidisciplinary Rounds D: Pt discussed in multidisciplinary rounds. The patient requires ongoing CHF management as an outpatient. Attending provider believes that hospice would be the most appropriate plan for this patient due to his EF of 15-20. Per conversations with the spouse yesterday, pt's may be more receptive to this idea as she had previously expressed concerns about the patient resting flat, having SOB and possibly needing a recliner or hospital bed. Palliative care has been consulted to speak with the patient and his about goals and how to best manage CHF as an outpatient. Per palliative care REHABILITATION CASE COORDINATOR, the patient and his are interested in a hospice informational visit. Palliative REHABILITATION CASE COORDINATOR is placing referral to [facility] and will update this REHABILITATION CASE COORDINATOR on the scheduled time for a visit. A: Pt who lives at home with his . P: Evolving; Hospice [facility] to meet with the patient and spouse for an informational visit, likely sometime tomorrow. SHARON Ray
--- NOTE | 2017-02-23 14:17 | PCM.CONPAL ---
Date of Service Feb 23, 2017 Date of Hospital Admission: Feb 20, 2017 at 21:36 Date of Palliative Consult: Feb 23, 2017 Requesting Provider: Mukesh Monique MD Reason Palliative Care Consult: Goals of Care Discussion Hospital Unit @time of consult: Progressive Care Palliative Care Recommendation 86-year-old male with ischemic heart disease, status post multiple PCIs, now with recurrent systolic CHF (EF 15-20%), acute on chronic renal failure, etc. readmitted with symptomatic acute respiratory failure secondary to CHF/ pulmonary edema. Palliative medicine consulted to assist patient and his and determination of goals of care. Summary of palliative recommendations: -Symptom management (Pain/other)- continued management per medical/cardiology teams. Consider trial of low-dose oral morphine for relief of dyspnea (2 mg IV or 5 mg oral TID/prn) with transition to longer-acting form of medication if beneficial. Discussed with Dr. Jean-Baptiste of cardiology who will be adjusting other medications over the coming days trying to optimize status. I also reviewed patient's case by phone with Dr. Shiela Light of hospice- on the basis of our quick review she felt that he would be a good candidate and noted that such patients frequently do very well with hospice support, with much improved symptomatic relief. Discussed option of hospice care and patient and his were very interested- information visit will be arranged. -DPOA/Advanced Directives/POLST- DO NOT RESUSCITATE/DO NOT INTUBATE. Will plan on assisting in completing POLST prior to discharge. -Family/emotional support- palliative will continue to follow and provide support; palliative SUPERVISOR [employer]GRICULTURAL EDUCATION will follow up tomorrow as well Additional Medical Diagnoses with primary management by Hospitalist team include : Systolic congestive heart failure with reduced ejection fraction, acute, present on admission Acute Kidney Injury, POA, Active. Acute mild hypotension, present on admission Coronary Artery Disease, Chronic, POA, Active. Chronic Normocytic Anemia, POA, Stable H/o GERD, Chronic, Stable Acute Respiratory Failure, POA, resolved Problems: End of Life Preferences DO NOT RESUSCITATE/DO NOT INTUBATE Goals of Care Optimize quality of time remaining Disposition Home Resuscitation Status Resuscitation Status: DNR/DNI:Do Not Resuscitate/Intubate Limited Interventions: BiPAP, Medications and IV Fluid POLST Updates/Changes Previous POLST?: No . Pain: None Symptom management: Dyspnea Pt History History of Present Illness Per admission H&P: 86yoM hx systolic CHF, CAD with stent x6, HTN, HLD, aortic stenosis presents with shortness of breath and orthopnea the day after being discharged from [facility] for CHF exacerbation and ischemic cardiomyopathy s/p 2 stents. He had felt well on discharge the day prior, and went out for a walk the day of readmission, but began to feel significantly short of breath after 10 minutes of walking that did not improve with rest. He also reports orthopnea, and has been sitting up in a chair to sleep. He also reports occasional palpitations and mild dizziness. He denies chest pain, edema, or syncope. Overnight, he was significantly orthopneic and had to be sat up. He felt improved on sitting up and being given oxygen. Today he states he feels well while sitting up in a chair but feels he would become short of breath again if he laid down or got up to the bathroom. Telemetry overnight showed sinus rhythm with PACs. Palliative medicine consulted to assist patient and his in determination of goals of care. Prior to visiting, I reviewed his records in the EMR in detail, spoke with his nurse, his hospitalist team and with Dr. Jean-Baptiste of cardiology. On arrival, patient was sitting up in chair at bedside. His was sitting on his hospital bed. We sat down and spoke at length with them. Reviewed his history over the last several admissions, diagnoses and prognosis and then discussed their wishes for ongoing care and options for ongoing care and support. Patient has long history of ischemic heart disease and has undergone multiple interventional procedures in the past. At the time of his last hospitalization he was noted to have significant deterioration in EF (now 15-20%) felt to be secondary to ischemic heart disease. Symptomatically, he has deteriorated over the last 3 months with increasing dyspnea on exertion, at rest, orthopnea, chest pains, easy fatigue, etc. At the time of this hospitalization, patient and his relate that some physician told him that 'there is no point returning to the hospital anymore/there was nothing that could be done for him' and that he should therefore not return to the ER/hospital in the future. This was extremely distressing to them and he remained quite anxious and confused about the implications following eventual discharge. She also noted that she was very frustrated because the patient does not seem to qualify for home oxygen (O2 sats consistently greater than 90% here) and yet it seems to relieve his anxiety and dyspnea. We talked at length about this and about his medical history, current findings, etc. Answered questions that they had. Spoke at length about options for ongoing care which led into a discussion about hospice. Reviewed the nature of hospice with them and after lengthy discussion patient and his are both very interested in a hospice informational visit in the coming days. Past Medical History Significant PMH Noted: Coronary artery disease History of SVT Hyperlipidemia Hypertension Chronic anemia History of chronic polymyalgia rheumatica Reports: Coronary artery disease, GERD, Hypertension Reports: Atrial fibrillation Surgical History Total left knee replacement Cardiac catheterization x2 (2010) (02/15/2017) Hemorrhoidectomy TURP Cardiac stents x6 Angioplasty Social History Occupation: Retired; [place] in [place] Family Members Issues: Son in [place] and daughter in [place] who have been very supportive ( [place] daughter visits daily) Children are now actively supporting patient's , offering to assist more at home as able Patient's was very anxious and fearful about what will happen when he goes home/what to do in case he has acute symptoms or deterioration Living Situation: As above Palliative Performance Scale PPS Patient Status: Current PPS Ambulation: Mainly Sit/Lie PPS Activity: Unable to do most activity PPS Self-Care: Occasional assistance necessary PPS Intake: Normal or reduced PPS Conscious Level: Full Performance Scale: 40% ADLs ADL Patient Status: Current ADL Ambulation: Mainly Sit/Lie ADL Dressing: Occasional assistance necessary ADL Feeding: Full ADL Hygene/bathing: Occasional assistance necessary ADL Transfers: Full POLST at Time of Admission Previous POLST?: No Allergy Allergies Reviewed: Yes Medications Current Medications: Current Medications Metoprolol Succinate 12.5 mg DAILY PO Last administered on 02/23/17t 13:54; Admin Dose 12.5 MG; Start 02/23/17 at 12:20 Lisinopril 2.5 mg HS PO; Start 02/23/17 at 21:00 Scheduled Aspirin (Aspirin) 81 Mg Tablet 81 MG PO DAILY Cholecalciferol (Vitamin D3) (Vitamin D3) 1,000 Unit Tab.chew 1,000 UNIT PO DAILY Clopidogrel (Clopidogrel) 75 Mg Tablet 75 MG PO DAILY Docusate Sodium (Colace) 100 Mg Capsule 200 MG PO BID Ezetimibe (Zetia) 10 Mg Tablet 10 MG PO DAILY Furosemide (Furosemide) 40 Mg Tablet 40 MG PO DAILY Garlic (Garlic) 1,000 Mg Capsule 1,000 MG PO DAILY Lisinopril (Lisinopril) 5 Mg Tablet 5 MG PO DAILY Metoprolol Succinate ER (Metoprolol Succinate ER) 25 Mg Tab.er.24h 25 MG PO DAILY Multivits-Min/FA/Lycopene/Lut (Centrum Silver Tablet) 1 Each Tablet 1 EACH PO DAILY Prednisone (PredniSONE) 5 Mg Tab 5 MG PO DAILY Sennosides (Senna) 8.6 Mg Tablet 17.2 MG PO HS Tamsulosin ER (Tamsulosin ER) 0.4 Mg Cap.er.24h 0.4 MG PO DAILY Vit C/E/Zn/Coppr/Lutein/Zeaxan (Preservision Areds 2 Softgel) 1 Each Capsule 1 EACH PO BID Scheduled PRN Lansoprazole ODT (Prevacid ODT) 15 Mg Tablet 15 MG PO DAILY PRN PRN For Indigestion Nitroglycerin SL (Nitrostat) 0.4 Mg Tab.subl 0.4 MG SL Q5MIN PRN PRN For Pain Objective Findings Exam Vital Sign - Last Date Time Temp Pulse Resp B/P Pulse Ox O2 Delivery O2 Flow Rate FiO2 02/23/17 13:10 36.6 66 18 112/64 96 Room Air 02/23/17 08:08 1.50 Intake and Output 02/22/17 02/22/17 02/23/17 Cumulative From/Thru 15:00 23:00 07:00 02/20/17 19:02 - 02/23/17 06:26 Intake Total 787 ml 480 ml 3407 ml Output Total 1150 ml 1750 ml 6400 ml Balance -363 ml -1270 ml -2993 ml Intake Oral 787 ml 480 ml 2907 ml IV Total 500 ml Output Urine Total 1150 ml 1750 ml 6400 ml # Voids 10 # Bowel Movements 1 3 Objective General appearance: No apparent distress, well-nourished, pleasant, cooperative. SALAMATOF HEET: Normocephalic atraumatic, no scleral icterus, tongue midline, mucous membranes moist Neck: supple, murmur appreciated Cardiovascular: RRR, normal S1 and normal S2, systolic murmur at left sternal border Respiratory: Decreased breath sounds left lower lung Abdomen: Soft, nontender, nondistended, + bowel sounds Neuro: Alert, oriented and appropriate Lab/Diagnostics Lab and Imaging results reviewed in detail in EMR. Time spent Total time 75 minutes; >50% face to face with patient and family, providing counselling regarding plans and recommendations, and in care coordination with his medical teams. Of the above total time, 25 minutes counseling for advanced care planning with the patient and his Nicolas Nixon MD Feb 23, 2017 14:17
--- NOTE | 2017-02-23 14:23 | NUR ---
Palliative care note D/A: New referral for palliative care received today from Dr. Monique. Dr. Nixon has met with pt and his spouse and they have expressed an interest in hospice services. Dr. Nixon has written for hospice consult. Phone call to fahad Ferrara to note plan for hospice. Pt spouse has gone home for lunch and to do laundry. Phone call to her at at home phone at [phone]. Discuss hospice agencies available and note that as they live in [facility], the only hospice agency that is available to them is [facility]. Spouse is agreeable. She notes that she is fairly flexible about visit and could be here for almost any time. She notes that she is tired with being at pt bedside and attempting to meet and discuss with all his providers and entire medical team. She is encouraged to Take breaks, make sure she is rested and to go home to eat. Have discussed case with Ne at [facility]. She will ascertain possible time for info visit on 02/24 and call this worker back. This worker has been asked by spouse to please call her home number and leave message if not available and not to leave a message on her cell phone. P: Palliative care to follow. Urvashi RICARDOSW, [facility] Addendum: 02/23/17 at 1608 by NIKKO HARO PC note amendment D/A: Phone call from Ne at [facility], can do info visit on 02/24/17 at 1:30. Have left message for pt spouse at her home number. Call to Farhana COMMERCIAL FINANCE ANALYST, dcp to alert. P: Palliative care to follow. Urvashi PIMENTEL, CCM
--- NOTE | 2017-02-23 18:05 | NUR ---
ambulation/palliative/plan pt up to BR multiple times today with FWW. He has a hunched over kyphotic posutre but tolerates activity well. 1500 Pt walked 200 ft down to windows, sat and walked back on RA, minimally SOB, tolerated activity well. Palliative care consult today left pt's much less anxious and planning for hospice consult tomorrow.
--- NOTE | 2017-02-23 19:33 | PCM.PNMED ---
Subjective Date of Service Feb 23, 2017 Subjective Patient is a pleasant 86 y/o male with a past medical history of CAD with stent x4, HTN, Hyperlipidemia, and moderate calcific aortic stenosis who was recently discharged from [facility] on 02/19/17 after an extensive cardiac workup with a balloon angioplasty as well as a LAD stent and RCA placed. Presented to [facility] with shortness of breath on exertion. This morning, patient was complaining of SOB. He was worried that he would not make it through the day and called his to come over. He had no appetite to et breakfast because he was also feeling nauseated. Palliative care was consulted and they spoke to him and his to discuss goals of care. There were no acute events overnight. On ROS, patient denies visual changes, chest pain, abdominal pain, and dysuria Exam Vital Signs Vital Sign - Last Date Time Temp Pulse Resp B/P Pulse Ox O2 Delivery O2 Flow Rate FiO2 02/23/17 04:00 36.6 68 16 108/70 100 Room Air 02/22/17 08:42 2.00 Intake and Output 02/22/17 02/22/17 02/23/17 Cumulative From/Thru 15:00 23:00 07:00 02/20/17 19:02 - 02/23/17 06:26 Intake Total 787 ml 480 ml 3407 ml Output Total 1150 ml 1750 ml 6400 ml Balance -363 ml -1270 ml -2993 ml Intake Oral 787 ml 480 ml 2907 ml IV Total 500 ml Output Urine Total 1150 ml 1750 ml 6400 ml # Voids 10 # Bowel Movements 1 3 Exam General: Cachectic male Patient is sitting on side of bed, AAOX3, not in acute distress, cooperative and pleasant. HEENT: head normocephalic and atraumatic, PERRLA, EOMI, no scleral icterus, noninjected conjunctiva Neck: neck supple, non-tender, no lymphadenopathy, trachea midline, JVD evident CV: regular rate and rhythm, s1 and s2 heard, no murmur, radial pulses 2+ and equal bilaterally, distant heart sounds, 2/6 systolic ejection murmur, no edema Lungs: Decreased breath sounds bilaterally, no increased work of breathing Abdomen: normoactive bowel sounds on 4Q, soft, non-distended, non-tender to palpation, no organomegally, Skin: warm and dry Neuro: Grossly neurologically intact, cranial nerves II through XII intact Psych: Normal mood and affect IVs and Medications Medications Reviewed: Medications were reviewed in detail Lab and Diagnostics Laboratory Tests Test 02/23/17 02:45 White Blood Count 6.3th/mm3 (3.8-10.1) Red Blood Count 4.08mil/mm3 (4.40-5.80) Hemoglobin 11.7g/dL (13.8-17.2) Hematocrit 35.0% (41.0-50.0) Mean Corpuscular Volume 85.8fL (81-100) Mean Corpuscular Hemoglobin 28.7pg (27.0-35.0) Mean Corpuscular Hemoglobin Concent 33.4% (32.0-37.0) Red Cell Distribution Width 14.8% (12.3-15.4) Platelet Count 149bil/L (150-400) Neutrophils (%) (Auto) 59.8% (40-74) Lymphocytes (%) (Auto) 20.0% (14-46) Monocytes (%) (Auto) 13.7% (4-12) Eosinophils (%) (Auto) 6.0% (0-5) Basophils (%) (Auto) 0.2% (0-3) Sodium Level 133mEq/L (134-144) Potassium Level 4.6mEq/L (3.5-5.2) Chloride Level 98mEq/L (97-108) Carbon Dioxide Level 21mmol/L (18-29) Blood Urea Nitrogen 36mg/dL (8-27) Creatinine 1.41mg/dL (0.76-1.27) Estimat Glomerular Filtration Rate 50mL/min (>59) Glucose Level 89mg/dL (60-99) Calcium Level 9.0mg/dL (8.5-10.1) Total Bilirubin 0.4mg/dL (0.0-1.2) Aspartate Amino Transf (AST/SGOT) 20U/L (0-50) Alanine Aminotransferase (ALT/SGPT) 17U/L (0-44) Alkaline Phosphatase 71U/L (25-160) Total Protein 6.4g/dL (6.4-8.4) Albumin 3.9g/dL (3.4-5.0) Microbiology 02/21/17 Urine Culture - Final, Complete No growth (<1,000 organisms/mL) Result Diagram: 02/23/17 0245 02/23/17 0245 12-lead ECG Sinus rhythm. Left atrial enlargement. Cardiac Echo Impressions Echocardiogram Report Interpretation Summary Left ventricular systolic function is severely reduced with the ejection fraction now estimated to be 15-20%. Compared to the prior exam, left ventricular function has markedly decreased now with severe global hypokinesis that appears worse in the anterior and anteroseptal segments which is new from the previous study. The left ventricle is moderate-severely dilated and is significantly larger compared to the previous study with diastolic parameters suggesting a pseudonormalization pattern, consistent with elevated filling pressures, likely higher compared to the previous study. The right ventricle is mildly dilated and right ventricular systolic function is borderline reduced but similar compared to the previous study. Pulmonary artery pressures cannot be estimated because of the lack of a measurable TR jet velocity. The left atrium is severely dilated and has significantly increased in size since the prior echo exam. There is mild to moderate mitral regurgitation and mild tricuspid regurgitation. Both are more prominent compared to the previous study. The aortic valve is not well visualized but appears to be moderately calcified with moderate but not severely reduced leaflet mobility. Assessment of the severity of aortic stenosis is challenging because of the markedly reduced systolic function but is likely in the moderate to severe range, likely similar to the previous study but consider other methods of assessment. The ascending aorta is moderately enlarged and has increased in size compared to the previous study. Assessment & Plan Patient is a pleasant 86 y/o male with a past medical history of CAD with stent x4, HTN, Hyperlipidemia, and moderate calcific aortic stenosis who was recently discharged from [facility] on 02/19/17 after an extensive cardiac workup with a balloon angioplasty as well as a LAD stent and RCA placed as per Dr. Richmond. Presenting to [facility] with shortness of breath on exertion. Systolic congestive heart failure with reduced ejection fraction, acute, present on admission - Patient with symptoms of orthopnea as well as notable JVD with a clinical diagnosis of increased right-sided filling pressures - Echo performed on 02/13 shows an EF of 15-25% with global hypokinesis inconsistent with ischemic cardiomyopathy - Patient has low normal blood pressure with systolics in the 90s to 100s - Serum creatinine of 1.63 improved to 1.33 after 500 mL's of IV hydration in the ED - low-dose Lasix 10 mg IV when necessary monitoring for blood pressure -Will need to discuss various options for safe discharge with CHF management -Cardiology has been consulted and we appreciate their input. - Per Cardiology, Start lisinopril 2.5 mg qhs, Start metoprolol XL 12.5 daily, and Diurese with furosemide 20mg daily or 40mg daliy as tolerated - Palliative care met with patient and and discuss goals of care and possible hospice. # Hypotension: Likely secondary to severe cardiomyopathy. Will monitor BP closely when diuresing. - Diurese carefullly - Will hold lisinopril and metoprolol if SBP <90. - Avoid pressors or inotropes if possible, as pt is discussing possible hospice with Palliative Care. Acute Kidney Injury, POA, Active. - SCr. 1.63 at admission, up from baseline of about 1.2. Likely secondary to contrast received with cardiac cath 2 - Patient received 500ml bolus in ED, with improvement in creatinine down to 1.3 , this is possibly expected improvement from [facility]AFAR - monitor I&Os and CMP - Avoid aggressive diuresis Acute mild hypotension, present on admission - Likely secondary to acute CHF exacerbation with global hypokinesis and an EF of 15-20% - Given patient's improvement in creatinine after 500 mL's IV fluids may consider conservative fluid boluses with 500 mL some the future - IV Lasix failed to improve the patient's blood pressure - May consider pressor support with phenylephrine or norepinephrine, avoid dobutamine or epinephrine given significant ectopic beats Coronary Artery Disease, Chronic, POA, Active. - Patient had two stents placed on 02/17 - Most recent cardiac echo showed an EF of 15%-20% - Cardiology consult as above. - Continue home Plavix - Continue ASA - NTG SL PRN for CP -Chronic Normocytic Anemia, POA, Stable -likely secondary to chronic disease state, patient has h/o RA - Baseline ~12 - Transfuse if less than 8. H/o GERD, Chronic, Stable - Famotidine PO Acute Respiratory Failure, POA, resolved - Patient recently discharged from [facility] after cardiac balloon angioplasty and stent placement done by cardiology with acute SOB on exertion. - Patient was on 3L O2 in ED, now 98% on RA - Cardiology consult, as patient was recently d/c post cardiac cath and stent placement. stated that cardiology discussed "cardiac vest" on prior admission. DVT ppx - Heparin Nausea ppx - Ondansetron CODE STATUS DNR/DNI Disposition: Patient will likely remain inpatient for at least 1-2 more days to determine patient's volume status for safe discharge Pain Evaluation: Adequate Pain Control GI Prophylaxis: H2 neha VTE Prophylaxis: Sub-Q Heparin (Unfractionated) VTE Mechanical Devices: Intermittant Pneumatic CD Resuscitation Status: DNR/DNI:Do Not Resuscitate/Intubate Limited Interventions: BiPAP, Medications and IV Fluid Attending Statement The patient was seen and examined together with Dr. Vyas on 02/23/2017 and I agree with the history, exam and plan as outlined in the note above. . Amalia Vyas DO Feb 23, 2017 06:41 Mukesh Monique MD Feb 25, 2017 13:53
[2017-02-23] MEDS: Polyethylene Glycol (PEG) 17 Gm Powder PO PRN (20:43)
[2017-02-24] VITALS (9 sets, daily range): BP systolic 88–121; BP diastolic 49–84; PULSE 45–84; RESP 20–22; O2SAT 95–98
[2017-02-24] MEDS: Heparin 5,000 Unit/mL Inj SUBQ SCH ×4 (00:19→23:50)
[2017-02-24 03:54] LABS: BASOPHILS % (AUTO) 0.2 % (0-3); MONOCYTES % (AUTO) 11.8 % (4-12); Mean Corpuscular Hemoglobin 28.4 pg (27.0-35.0); Mean Corpuscular Volume 85.4 fL (81-100); NEUTROPHILS % (AUTO) 57.7 % (40-74); Platelet Count 165 bil/L (150-400)
--- NOTE | 2017-02-24 06:06 | NUR ---
activity pt up to bathroom with FWW and SBA to void, pt tolerating well, gets SOB but able to recover quickly, pt on RA
[2017-02-24] MEDS: MeTOProlol XL 25 mg ER24 Tablet PO SCH (08:12)
[2017-02-24] MEDS: predniSONE 5 mg Tablet PO SCH (08:12)
--- NOTE | 2017-02-24 14:42 | NUR ---
Palliative care note D/A: Phone call from Fiorella at [facility] to indicate that pt and spouse have signed consents for hospice care with [facility]. Dr. Nixon aware. Have left message for fahad Ferrara. Discussed with Dr. Nixon regarding his recommendations regarding timing of dc and hospice open. He notes that spouse is anxious and tired and had received erroneous understanding at start of admit that there was no further medical care to be given and that pt would be dc'ed home without assist. He feels that pt might be a high risk for readmit and would recommend that pt dc on same day as hospice open. Have indicated this to fahad Ferrara as well. P: Palliative care to follow. Urvashi PIMENTEL, CCM
--- NOTE | 2017-02-24 16:00 | PCM.PALLBR ---
Palliative Care Recommendation 86-year-old male with ischemic heart disease, status post multiple PCIs, now with recurrent systolic CHF (EF 15-20%), acute on chronic renal failure, etc. readmitted with symptomatic acute respiratory failure secondary to CHF/ pulmonary edema. Palliative medicine consulted to assist patient and his and determination of goals of care. Summary of palliative recommendations: -Symptom management (Pain/other)- continued management per medical/cardiology teams. Consider trial of low-dose oral morphine for relief of dyspnea (2 mg IV or 5 mg oral TID/prn) with transition to longer-acting form of medication if beneficial. Discussed with Dr. Jean-Baptiste of cardiology who will be adjusting other medications over the coming days trying to optimize status. I also reviewed patient's case by phone with Dr. Shiela Light of hospice- on the basis of our quick review she felt that he would be a good candidate and noted that such patients frequently do very well with hospice support, with much improved symptomatic relief. Seen for hospice informational visit today and reportedly has signed on to hospice -DPOA/Advanced Directives/POLST- DO NOT RESUSCITATE/DO NOT INTUBATE. Will plan on assisting in completing POLST prior to discharge. -Family/emotional support- palliative will continue to follow and provide support Additional Medical Diagnoses with primary management by Hospitalist team include : Systolic congestive heart failure with reduced ejection fraction, acute, present on admission Acute Kidney Injury, POA, Active. Acute mild hypotension, present on admission Coronary Artery Disease, Chronic, POA, Active. Chronic Normocytic Anemia, POA, Stable H/o GERD, Chronic, Stable Acute Respiratory Failure, POA, resolved Problems: End of Life Preferences DO NOT RESUSCITATE/DO NOT INTUBATE Goals of Care Optimize quality of time remaining Disposition Home Resuscitation Status Resuscitation Status: DNR/DNI:Do Not Resuscitate/Intubate Limited Interventions: BiPAP, Medications and IV Fluid POLST Updates/Changes Previous POLST?: No . Pain: None Symptom management: Dyspnea Total time 25 minutes; >50% face to face with patient, providing counselling regarding plans and recommendations, and in care coordination with his medical teams. Palliative Brief Note Date of Service Feb 24, 2017 . Return to reevaluate patient. Prior to visiting, reviewed his updated records in the EMR and spoke with his nurse On my arrival, he is sitting up in chair watching television. Says that he is feeling better. Was able to ambulate the halls with only some mild dyspnea at end of walk. Slept better last night with 2 pillow orthopnea. Denies chest pain. On exam, vital signs noted. Continued good diuresis. Skin warm and dry, pink. Lungs clear throughout, heart sounds very distant and regular, trace ankle edema Nicolas Nixon MD Feb 24, 2017 16:00
--- NOTE | 2017-02-24 16:54 | NUR ---
Social Work: Readiness for Discharge/Multidisciplinary Rounds D: Pt discussed in multidisciplinary rounds; the patient has signed consent with hospice. He will need hospice to open on the same day as discharge. COMPUTER SERVICE TECHNICIAN spoke with Isabelle at [facility]. She states that they are able to do an intake with the patient in his home tomorrow at 10:00am. They will be delivering DME later in the day. [facility] will be contacting the patient's to notify of the intake time. The patient has been SBA with a FWW. COMPUTER SERVICE TECHNICIAN met with the patient at bedside. not present. Pt states that he is very pleased to hear that he gets to go home tomorrow and states that his had already spoken with hospice about his intake at 10:00am tomorrow. will be here by 9:00am to complete discharge and transport the patient home. Pt expresses no concerns about this plan and is appreciative of the care he has received. COMPUTER SERVICE TECHNICIAN has informed attending provider of the pt's scheduled intake time. Discharge will be completed by 0900 so that patient can be home in time for hospice intake at 10:00am A: Pt who lives at home with his . P: Anticipate pt to discharge home tomorrow by 0900 to open with hospice at 10:00am. will transport and is aware of plan. SHARON Ray
[2017-02-24] MEDS: Polyethylene Glycol (PEG) 17 Gm Powder PO PRN (20:29)
--- NOTE | 2017-02-24 20:30 | NUR ---
chocking pt had [employer] that his family brought in for dinner, pt getting a piece stuck in his throat and chocking a little, pt able to clear it on his own, talked with pt and daughter about maybe grinding up all meats when he goes home so not to get bigger pieces of meat stuck in his throat.
--- NOTE | 2017-02-24 22:00 | PCM.PNMED ---
Subjective Date of Service Feb 24, 2017 Subjective Patient is a pleasant 86 y/o male with a past medical history of CAD with stent x4, HTN, Hyperlipidemia, and moderate calcific aortic stenosis who was recently discharged from [facility] on 02/19/17 after an extensive cardiac workup with a balloon angioplasty as well as a LAD stent and RCA placed as per Dr. Richmond. Presenting to [facility] with shortness of breath on exertion. This morning, patient notes that he feels better overall. He states that he was able to sleep well last night. There were no acute events overnight. On ROS, patient denies headaches, visual changes, chest pain, SOB, nausea, vomiting and abdominal pain. Exam Vital Signs Vital Sign - Last Date Time Temp Pulse Resp B/P Pulse Ox O2 Delivery O2 Flow Rate FiO2 02/24/17 02:29 37.1 64 20 88/55 98 Room Air 02/23/17 08:08 1.50 Intake and Output 02/23/17 02/23/17 02/24/17 Cumulative From/Thru 15:00 23:00 07:00 02/20/17 19:02 - 02/24/17 06:16 Intake Total 1080 ml 320 ml 4807 ml Output Total 2750 ml 1000 ml 08001 ml Balance -1670 ml -680 ml -5343 ml Intake Oral 1080 ml 320 ml 4307 ml IV Total 500 ml Output Urine Total 2750 ml 1000 ml 28390 ml # Voids 10 # Bowel Movements 1 4 Exam General: Cachectic male Patient is sitting on side of bed, AAOX3, not in acute distress, cooperative and pleasant. HEENT: head normocephalic and atraumatic, PERRLA, EOMI, no scleral icterus, noninjected conjunctiva Neck: neck supple, non-tender, no lymphadenopathy, trachea midline, JVD evident CV: regular rate and rhythm, s1 and s2 heard, no murmur, radial pulses 2+ and equal bilaterally, distant heart sounds, 2/6 systolic ejection murmur, no edema Lungs: Decreased breath sounds bilaterally, no increased work of breathing Abdomen: normoactive bowel sounds on 4Q, soft, non-distended, non-tender to palpation, no organomegally, Skin: warm and dry Neuro: Grossly neurologically intact, cranial nerves II through XII intact Psych: Normal mood and affect IVs and Medications Medications Reviewed: Medications were reviewed in detail Lab and Diagnostics Result Diagram: 02/24/17 0330 02/24/17 033 12-lead ECG Sinus rhythm. Left atrial enlargement. Cardiac Echo Impressions Echocardiogram Report Interpretation Summary Left ventricular systolic function is severely reduced with the ejection fraction now estimated to be 15-20%. Compared to the prior exam, left ventricular function has markedly decreased now with severe global hypokinesis that appears worse in the anterior and anteroseptal segments which is new from the previous study. The left ventricle is moderate-severely dilated and is significantly larger compared to the previous study with diastolic parameters suggesting a pseudonormalization pattern, consistent with elevated filling pressures, likely higher compared to the previous study. The right ventricle is mildly dilated and right ventricular systolic function is borderline reduced but similar compared to the previous study. Pulmonary artery pressures cannot be estimated because of the lack of a measurable TR jet velocity. The left atrium is severely dilated and has significantly increased in size since the prior echo exam. There is mild to moderate mitral regurgitation and mild tricuspid regurgitation. Both are more prominent compared to the previous study. The aortic valve is not well visualized but appears to be moderately calcified with moderate but not severely reduced leaflet mobility. Assessment of the severity of aortic stenosis is challenging because of the markedly reduced systolic function but is likely in the moderate to severe range, likely similar to the previous study but consider other methods of assessment. The ascending aorta is moderately enlarged and has increased in size compared to the previous study. Assessment & Plan Patient is a pleasant 86 y/o male with a past medical history of CAD with stent x4, HTN, Hyperlipidemia, and moderate calcific aortic stenosis who was recently discharged from [facility] on 02/19/17 after an extensive cardiac workup with a balloon angioplasty as well as a LAD stent and RCA placed as per Dr. Richmond. Presenting to [facility] with shortness of breath on exertion. Systolic congestive heart failure with reduced ejection fraction, acute, present on admission - Patient with symptoms of orthopnea as well as notable JVD with a clinical diagnosis of increased right-sided filling pressures - Echo performed on 02/13 shows an EF of 15-25% with global hypokinesis inconsistent with ischemic cardiomyopathy - Patient has low normal blood pressure with systolics in the 90s to 100s - Serum creatinine of 1.63 improved to 1.33 after 500 mL's of IV hydration in the ED - low-dose Lasix 10 mg IV when necessary monitoring for blood pressure -Will need to discuss various options for safe discharge with CHF management -Cardiology has been consulted and we appreciate their input. - Per Cardiology, Start lisinopril 2.5 mg qhs, Start metoprolol XL 12.5 daily, and Diurese with furosemide 20mg daily or 40mg daliy as tolerated - Palliative care met with patient and and discuss goals of care and possible hospice -Patient had a hospice informational visit today. Likely to be discharged home to hospice with CHF management # Hypotension: Likely secondary to severe cardiomyopathy. Will monitor BP closely when diuresing. - Diurese carefullly - Will hold lisinopril and metoprolol if SBP <90. - Avoid pressors or inotropes if possible, as pt is discussing possible hospice with Palliative Care. Acute Kidney Injury, POA, Active. - SCr. 1.63 at admission, up from baseline of about 1.2. Likely secondary to contrast received with cardiac cath 2 - Patient received 500ml bolus in ED, with improvement in creatinine down to 1.3 , this is possibly expected improvement from [facility] - monitor I&Os and CMP - Avoid aggressive diuresis Acute mild hypotension, present on admission - Likely secondary to acute CHF exacerbation with global hypokinesis and an EF of 15-20% - Given patient's improvement in creatinine after 500 mL's IV fluids may consider conservative fluid boluses with 500 mL some the future - IV Lasix failed to improve the patient's blood pressure - May consider pressor support with phenylephrine or norepinephrine, avoid dobutamine or epinephrine given significant ectopic beats Coronary Artery Disease, Chronic, POA, Active. - Patient had two stents placed on 02/17 - Most recent cardiac echo showed an EF of 15%-20% - Cardiology consult as above. - Continue home Plavix - Continue ASA - NTG SL PRN for CP -Chronic Normocytic Anemia, POA, Stable -likely secondary to chronic disease state, patient has h/o RA - Baseline ~12 - Transfuse if less than 8. H/o GERD, Chronic, Stable - Famotidine PO Acute Respiratory Failure, POA, resolved - Patient recently discharged from [facility] after cardiac balloon angioplasty and stent placement done by cardiology with acute SOB on exertion. - Patient was on 3L O2 in ED, now 98% on RA - Cardiology consult, as patient was recently d/c post cardiac cath and stent placement. stated that cardiology discussed "cardiac vest" on prior admission. DVT ppx - Heparin Nausea ppx - Ondansetron CODE STATUS DNR/DNI Disposition: Patient will likely remain inpatient for at least 1-2 more days to determine patient's volume status for safe discharge Pain Evaluation: Adequate Pain Control GI Prophylaxis: H2 neha VTE Prophylaxis: Sub-Q Heparin (Unfractionated) VTE Mechanical Devices: Intermittant Pneumatic CD Resuscitation Status: DNR/DNI:Do Not Resuscitate/Intubate Limited Interventions: BiPAP, Medications and IV Fluid Attending Statement The patient was seen and examined together with Dr. Vyas on 02/24/2017 and I agree with the history, exam and plan as outlined in the note above. . Amalia Vyas DO Feb 24, 2017 06:57 Mukesh Monique MD Feb 25, 2017 14:00
[2017-02-24] MEDS ORDERED: LORazepam 0.5 mg Tablet PO ONE (23:45)
[2017-02-25 03:08] VITALS: PULSE 86
[2017-02-25 03:38] VITALS: BP 78/56; PULSE 66; RESP 18; O2SAT 95
[2017-02-25 03:39] VITALS: BP 83/53
[2017-02-25 03:40] LABS: BASOPHILS % (AUTO) 0.3 % (0-3); EOSINOPHILS % (AUTO) 4.8 % (0-5); MONOCYTES % (AUTO) 13.7 % (4-12); Mean Corpuscular Hemoglobin 28.3 pg (27.0-35.0); Mean Corpuscular Volume 86.1 fL (81-100); NEUTROPHILS % (AUTO) 56.8 % (40-74); Platelet Count 151 bil/L (150-400)
--- NOTE | 2017-02-25 05:50 | NUR ---
anxiety pt requesting ativan this evening stating he is anxious about going home tomorrow and that he chock on the chicken. pt didn't have ativan on his EMAR but did take it the week before for his heart cath procedure, called received order for 0.5mg PO ativan gave.
[2017-02-25 07:30] VITALS: PULSE 71
[2017-02-25 08:53] VITALS: BP 104/69; PULSE 72; RESP 18; O2SAT 98
[2017-02-25] MEDS: Heparin 5,000 Unit/mL Inj SUBQ SCH (08:55)
[2017-02-25] MEDS: predniSONE 5 mg Tablet PO SCH (08:56)
[2017-02-25] MEDS: MeTOProlol XL 25 mg ER24 Tablet PO SCH (08:56)
--- NOTE | 2017-02-25 09:17 | PCM.DIMED ---
Amalia Vyas DO 02/25/17 0917: Discharge Instructions Date of Service Feb 25, 2017 Dates of Hospitalization Feb 20, 2017 at 21:36 Discharge Diagnosis Discharge Diagnosis Acute Systolic congestive heart failure with reduced ejection fraction, present on admission, ongoing Hypotension, likely secondary to severe cardiomyopathy Acute kidney injury Acute mild hypotension Coronary artery disease, chronic Chronic normocytic anemia GERD Acute respiratory failure, resolved Diet Discharge Diet: Heart Healthy Activity Discharge Activity: No restrictions, Other (please participate in activities as tolerated) Call your provider Call your provider for: Other (call hospice nurse for symptoms of fevers, chills, shortness of breath, chest pain, palpitations, weight gain, nausea, vomiting) Patient Instructions Patient Instructions When he came into the hospital you were short of breath. You had an ultrasound of your heart done on your prior admission on 02/13/2017 which shows that your heart has a reduced function with an ejection fraction of 15-25%. We gave you IV Lasix to try to get rid of some of the fluid in your lungs that was causing your shortness of breath. We consulted cardiology and they advised us on diuretics as well as heart medications that can help your heart failure. We are sending you home with the regimen that we have been giving you at the hospital. He will be going home with hospice for congestive heart failure management. Your hospice nurse will discuss your medications and how to manage your congestive heart failure. If you feel chest pain, shortness of breath , symptoms of weight gain of 3-5 pounds in 2-3 days, please contact your hospice nurse. Follow-up plan Please follow-up with your hospice physicians Mukesh Monique MD 02/25/17 1401: Discharge Instructions Attending's Statement The patient was seen and examined together with Dr. Vyas on 02/25/2017 and I agree with the history, exam and plan as outlined in the note above. . Amalia Vyas DO Feb 25, 2017 09:17 Mukesh Monique MD Feb 25, 2017 14:01
[2017-02-25] MEDS ORDERED: LISI-571 PO (09:21)
[2017-02-25] MEDS ORDERED: FURO40TA4 PO (09:21)
[2017-02-25] MEDS ORDERED: METO25TA99 PO (09:21)
--- NOTE | 2017-02-25 09:31 | PCM.DC.MED ---
Discharge Summary Date of Service Feb 25, 2017 Dates of Hospitalization Date of Hospital Admission Feb 20, 2017 at 21:36 Date of Discharge: Feb 25, 2017 Providers: Admitting Physician: Papa Conrad MD Primary Care Physician: Sera Reyna MD Attending Physician: Mukesh Monique MD Diagnosis at Time of Discharge Diagnosis at Time of Discharge Acute Systolic congestive heart failure with reduced ejection fraction, present on admission, ongoing Hypotension, likely secondary to severe cardiomyopathy, present on admission, ongoing Acute kidney injury Acute mild hypotension Coronary artery disease, chronic Chronic normocytic anemia GERD, chronic, ongoing Acute respiratory failure, resolved Consultations Cardiology was consulted Procedures ECG 12 Lead Sinus rhythm. Left atrial enlargement. Cardiac Echo Impression Echocardiogram Report Interpretation Summary Left ventricular systolic function is severely reduced with the ejection fraction now estimated to be 15-20%. Compared to the prior exam, left ventricular function has markedly decreased now with severe global hypokinesis that appears worse in the anterior and anteroseptal segments which is new from the previous study. The left ventricle is moderate-severely dilated and is significantly larger compared to the previous study with diastolic parameters suggesting a pseudonormalization pattern, consistent with elevated filling pressures, likely higher compared to the previous study. The right ventricle is mildly dilated and right ventricular systolic function is borderline reduced but similar compared to the previous study. Pulmonary artery pressures cannot be estimated because of the lack of a measurable TR jet velocity. The left atrium is severely dilated and has significantly increased in size since the prior echo exam. There is mild to moderate mitral regurgitation and mild tricuspid regurgitation. Both are more prominent compared to the previous study. The aortic valve is not well visualized but appears to be moderately calcified with moderate but not severely reduced leaflet mobility. Assessment of the severity of aortic stenosis is challenging because of the markedly reduced systolic function but is likely in the moderate to severe range, likely similar to the previous study but consider other methods of assessment. The ascending aorta is moderately enlarged and has increased in size compared to the previous study. Brief History Per admission H&P by on 02/20/17: Patient is a pleasant 86 y/o male with a past medical history of CAD with stent x4, HTN, Hyperlipidemia, and moderate calcific aortic stenosis who was recently discharged from [facility] on 02/19/17 after an extensive cardiac workup with a balloon angioplasty as well as a LAD stent and RCA placed as per Dr. Richmond. The patient was scheduled for cardiac rehab the following week with cardiac followup on 03/02. The patient was discharged to home with ASA 81mg, Clopidogrel 75mg PO daily, Lisinopril 5m PO daily, and Metoprolol Succinate 25mg PO daily. Patient reports that he felt fine in the morning and took his daily medications at 10:00. At around 16:00 this afternoon , patient wanted to "get some exercise" and went for a walk around his home and parking lot. During his walk, he reports that he began to feel short of breath that would not be relieved with rest. His called EMS, who arrived and gave him NTG spray and 81mg ASA to which it brought him relief. Associated sxs include lightheadedness. Patient denies any CP, ABD pain, N/V/D, headache, constipation, fevers, or urinary symptoms. Upon arrival to the ED, the patient stated that he began to feel short of breath again which was relieved with 3L supplemental oxygen. Patient had a recent heart echo on 02/13 which revealed EF of 15-20% with severe global hypokinesis and moderate-severe dilated left ventricle and a mildly dilated right ventricle and mild to moderate tricuspid regurgitation. Hospital Course Patient is a pleasant 86 y/o male with a past medical history of CAD with stent x4, HTN, Hyperlipidemia, and moderate calcific aortic stenosis who was recently discharged from [facility] on 02/19/17 after an extensive cardiac workup with a balloon angioplasty as well as a LAD stent and RCA placed as per Dr. Richmond. Presenting to [facility] with shortness of breath on exertion. He was given IV Lasix with adequate urine output. His cardiac meds were also optimized per cardiology. He will be going home with hospice for CHF management. Systolic congestive heart failure with reduced ejection fraction, acute, present on admission - Patient with symptoms of orthopnea as well as notable JVD with a clinical diagnosis of increased right-sided filling pressures - Echo performed on 02/13 shows an EF of 15-25% with global hypokinesis inconsistent with ischemic cardiomyopathy - Patient has low normal blood pressure with systolics in the 90s to 100s - Serum creatinine of 1.63 improved to 1.33 after 500 mL's of IV hydration in the ED - low-dose Lasix 10 mg IV when necessary monitoring for blood pressure -Will need to discuss various options for safe discharge with CHF management -Cardiology has been consulted and we appreciate their input. - Per Cardiology, Start lisinopril 2.5 mg qhs, Start metoprolol XL 12.5 daily, and Diurese with furosemide 20mg daily or 40mg daliy as tolerated - Palliative care met with patient and and discuss goals of care and possible hospice -Patient had a hospice informational visit today. Likely to be discharged home to hospice with CHF management Hypotension: Likely secondary to severe cardiomyopathy. - Diurese carefullly - Will hold lisinopril and metoprolol if SBP <90. - Avoid pressors or inotropes if possible, as pt is discussing possible hospice with Palliative Care. Acute Kidney Injury, POA, Active. - SCr. 1.63 at admission, up from baseline of about 1.2. Likely secondary to contrast received with cardiac cath 2 - Patient received 500ml bolus in ED, with improvement in creatinine down to 1.3 , this is possibly expected improvement from ZAFAR - monitor I&Os and CMP - Avoid aggressive diuresis Acute mild hypotension, present on admission - Likely secondary to acute CHF exacerbation with global hypokinesis and an EF of 15-20% - Given patient's improvement in creatinine after 500 mL's IV fluids may consider conservative fluid boluses with 500 mL some the future - IV Lasix failed to improve the patient's blood pressure - May consider pressor support with phenylephrine or norepinephrine, avoid dobutamine or epinephrine given significant ectopic beats Coronary Artery Disease, Chronic, POA, Active. - Patient had two stents placed on 02/17 - Most recent cardiac echo showed an EF of 15%-20% - Cardiology consult as above. - Continue home Plavix - Continue ASA - NTG SL PRN for CP -Chronic Normocytic Anemia, POA, Stable -likely secondary to chronic disease state, patient has h/o RA - Baseline ~12 - Transfuse if less than 8. H/o GERD, Chronic, Stable - Famotidine PO Acute Respiratory Failure, POA, resolved - Patient recently discharged from [facility] after cardiac balloon angioplasty and stent placement done by cardiology with acute SOB on exertion. - Patient was on 3L O2 in ED, now 98% on RA - Cardiology consult, as patient was recently d/c post cardiac cath and stent placement. stated that cardiology discussed "cardiac vest" on prior admission. DVT ppx - Heparin Nausea ppx - Ondansetron CODE STATUS DNR/DNI Exam Vital Signs (Last) Date Time Temp Pulse Resp B/P Pulse Ox O2 Delivery O2 Flow Rate FiO2 02/25/17 08:53 36.5 72 18 104/69 98 Room Air 02/23/17 08:08 1.50 Exam General: Cachectic male Patient is sitting on side of bed, AAOX3, not in acute distress, cooperative and pleasant. HEENT: head normocephalic and atraumatic, PERRLA, EOMI, no scleral icterus, noninjected conjunctiva Neck: neck supple, non-tender, no lymphadenopathy, trachea midline, JVD evident CV: regular rate and rhythm, s1 and s2 heard, no murmur, radial pulses 2+ and equal bilaterally, distant heart sounds, 2/6 systolic ejection murmur, no edema Lungs: Decreased breath sounds bilaterally, no increased work of breathing Abdomen: normoactive bowel sounds on 4Q, soft, non-distended, non-tender to palpation, no organomegally, Skin: warm and dry Neuro: Grossly neurologically intact, cranial nerves II through XII intact Psych: Normal mood and affect Test 02/20/17 19:13 02/21/17 00:59 02/22/17 02:23 02/25/17 02:50 Prothrombin Time 10.9sec (8.1-12.5) Prothromb Time International Ratio 1.02ratio Troponin T 0.032ug/L (0.0-0.011) Pro-B-Type Natriuretic Peptide 5996pg/mL (0-486) Urine Color Yellow (YELLOW) Urine Appearance Clear (CLEAR,HAZY) Urine pH 6.0 (5.0-8.0) Urine Specific Caspian 1.010 (1.003-1.035) Urine Protein Negativemg/dL (NEG,TRACE) Urine Glucose (UA) Negativemg/dL (NEGATIVE) Urine Ketones Negativemg/dL (NEGATIVE) Urine Occult Blood Negative (NEGATIVE) Urine Nitrite Negative (NEGATIVE) Urine Bilirubin Negative (NEGATIVE) Urine Urobilinogen Normalmg/dL (NORMAL) Urine Leukocyte Esterase Small (NEGATIVE) Urine RBC 0-2/hpf (0-2) Urine WBC 0-5/hpf (0-5) Urine Epithelial Cells Occasional/hpf (NONE-MOD) Urine Crystals None seen (NONE SEEN) Urine Bacteria Few/hpf (NONE-FEW) Urine Hyaline Casts Occasional/lpf (NONE) Urine Granular Casts None seen (NONE SEEN) Urine Waxy Casts None seen (NONE SEEN) Urine Red Blood Cell Casts None seen (NONE SEEN) Urine White Blood Cell Casts None seen (NONE SEEN) Urine Mucus None seen (None Seen) Urine Trichomonas None seen (NONE SEEN) Urine Yeast None (NONE SEEN) Urinalysis Comment None Urine Culture Reflexed Indicated Phosphorus Level 4.2mg/dL (2.5-4.9) Magnesium Level 2.4mg/dL (1.6-2.6) White Blood Count 6.4th/mm3 (3.8-10.1) Red Blood Count 3.81mil/mm3 (4.40-5.80) Hemoglobin 10.8g/dL (13.8-17.2) Hematocrit 32.8% (41.0-50.0) Mean Corpuscular Volume 86.1fL (81-100) Mean Corpuscular Hemoglobin 28.3pg (27.0-35.0) Mean Corpuscular Hemoglobin Concent 32.9% (32.0-37.0) Red Cell Distribution Width 15.0% (12.3-15.4) Platelet Count 151bil/L (150-400) Neutrophils (%) (Auto) 56.8% (40-74) Lymphocytes (%) (Auto) 24.1% (14-46) Monocytes (%) (Auto) 13.7% (4-12) Eosinophils (%) (Auto) 4.8% (0-5) Basophils (%) (Auto) 0.3% (0-3) Sodium Level 133mEq/L (134-144) Potassium Level 4.7mEq/L (3.5-5.2) Chloride Level 98mEq/L (97-108) Carbon Dioxide Level 20mmol/L (18-29) Blood Urea Nitrogen 44mg/dL (8-27) Creatinine 1.29mg/dL (0.76-1.27) Estimat Glomerular Filtration Rate 56mL/min (>59) Glucose Level 86mg/dL (60-99) Calcium Level 8.7mg/dL (8.5-10.1) Total Bilirubin 0.4mg/dL (0.0-1.2) Aspartate Amino Transf (AST/SGOT) 18U/L (0-50) Alanine Aminotransferase (ALT/SGPT) 15U/L (0-44) Alkaline Phosphatase 62U/L (25-160) Total Protein 5.8g/dL (6.4-8.4) Albumin 3.4g/dL (3.4-5.0) Discharge Medications Discharge Medications Aspirin (Aspirin) 81 Mg Tablet 81 MG PO DAILY (Reported) Cholecalciferol (Vitamin D3) (Vitamin D3) 1,000 Unit Tab.chew 1,000 UNIT PO DAILY (Reported) Clopidogrel (Clopidogrel) 75 Mg Tablet 75 MG PO DAILY (Reported) Docusate Sodium (Colace) 100 Mg Capsule 200 MG PO BID (Reported) Ezetimibe (Zetia) 10 Mg Tablet 10 MG PO DAILY Prescribed by: Tara GOODMAN Furosemide (Furosemide) 40 Mg Tablet 20 MG PO DAILY Prescribed by: Tara GOODMAN Garlic (Garlic) 1,000 Mg Capsule 1,000 MG PO DAILY (Reported) Lisinopril (Lisinopril) 5 Mg Tablet 2.5 MG PO HS Prescribed by: Tara GOODMAN Metoprolol Succinate ER (Metoprolol Succinate ER) 25 Mg Tab.er.24h 12.5 MG PO DAILY Prescribed by: Tara GOODMAN Multivits-Min/FA/Lycopene/Lut (Centrum Silver Tablet) 1 Each Tablet 1 EACH PO DAILY (Reported) Prednisone (PredniSONE) 5 Mg Tab 5 MG PO DAILY (Reported) Sennosides (Senna) 8.6 Mg Tablet 17.2 MG PO HS (Reported) Tamsulosin ER (Tamsulosin ER) 0.4 Mg Cap.er.24h 0.4 MG PO DAILY Prescribed by: ARIAS BRYSON MD Vit C/E/Zn/Coppr/Lutein/Zeaxan (Preservision Areds 2 Softgel) 1 Each Capsule 1 EACH PO BID (Reported) As needed Lansoprazole ODT (Prevacid ODT) 15 Mg Tablet 15 MG PO DAILY PRN PRN For Indigestion (Reported) Nitroglycerin SL (Nitrostat) 0.4 Mg Tab.subl 0.4 MG SL Q5MIN PRN PRN For Pain ( Reported) Followup Plan Disposition: Patient will be discharged to home with hospice Follow-up plan Please follow-up with your hospice physicians Discharge Diet: Heart Healthy Discharge Activity: No restrictions, Other (please participate in activities as tolerated) Patient Instructions When he came into the hospital you were short of breath. You had an ultrasound of your heart done on your prior admission on 02/13/2017 which shows that your heart has a reduced function with an ejection fraction of 15-25%. We gave you IV Lasix to try to get rid of some of the fluid in your lungs that was causing your shortness of breath. We consulted cardiology and they advised us on diuretics as well as heart medications that can help your heart failure. We are sending you home with the regimen that we have been giving you at the hospital. He will be going home with hospice for congestive heart failure management. Your hospice nurse will discuss your medications and how to manage your congestive heart failure. If you feel chest pain, shortness of breath , symptoms of weight gain of 3-5 pounds in 2-3 days, please contact your hospice nurse. Follow-up Provider: DOTTIE WILHELM Time spent Greater than 30 minutes was spent in preparation of discharge with greater than 50% of that time dedicated to patient counseling and coordination of care. . Attending Statement The patient was seen and examined together with Dr. Vyas on 02/25/2017 and I agree with the history, exam and plan as outlined in the note above. . copies to: Sera Reyna MD, Alexa N DO Feb 25, 2017 09:30 Mukesh Monique MD Feb 28, 2017 07:50
--- NOTE | 2017-02-25 10:10 | NUR ---
Social Work: Discharge D: Pt is medically stable for discharge home with hospice to open this morning between 10-11. PRIMARY SUBSTANCE ABUSE COUNSELOR met with the patient, his and son at bedside to confirm discharge plan and assess for unmet needs. They all agree with the plan and are appreciative of the care pt has received. No questions or concerns. They know that hospice is meeting with them between 10-11 this morning. A: Pt who is transitioning to hospice for ongoing CHF management. P: Pt to discharge home today with his and son to transport. hospice to open at 10:00 this morning. SHARON Ray
--- NOTE | 2017-02-25 10:46 | NUR ---
Discharge Home patient discharged home with family. discharge instructions, medications and follow-up care reviewed with patient and family. All questions answered at that time. patient and verbalized understanding and agrees with plan of care. patient has an appointment with home hospice today.
--- NOTE | 2017-02-25 13:04 | NUR ---
Palliative care note D/A: Palliative care has completed a POLST with pt today, 02/25/17, with pt and Dr. Strickland signing document. Pt elects to be DNAR with comfort measures only. He has checked both use antibiotics if life can be prolonged as well as determine use of antibiotics when infections occurs, with comfort as the goal. He does not wish for medically assisted nutrition by tube. POLST is scanned and emailed to Fiorella at [facility]. P: Palliative care to follow. Urvashi PIMENTEL, CCM
--- NOTE | 2017-02-25 19:43 | PCM.PALLBR ---
Palliative Care Recommendation 86-year-old male with ischemic heart disease, status post multiple PCIs, now with recurrent systolic CHF (EF 15-20%), acute on chronic renal failure, etc. readmitted with symptomatic acute respiratory failure secondary to CHF/ pulmonary edema. Palliative medicine consulted to assist patient and his and determination of goals of care. Summary of palliative recommendations: 02/25/17-Angina and dyspnea- improved. Hospice arrangements completed POLST reviewed and completed- DNR, comfort care, no FT. This is consistent with his goals. Questions answered including review of med management by hospice. -Symptom management (Pain/other)- continued management per medical/cardiology teams. Consider trial of low-dose oral morphine for relief of dyspnea (2 mg IV or 5 mg oral TID/prn) with transition to longer-acting form of medication if beneficial. Discussed with Dr. Jean-Baptiste of cardiology who will be adjusting other medications over the coming days trying to optimize status. I also reviewed patient's case by phone with Dr. Shiela Light of hospice- on the basis of our quick review she felt that he would be a good candidate and noted that such patients frequently do very well with hospice support, with much improved symptomatic relief. Seen for hospice informational visit today and reportedly has signed on to hospice -DPOA/Advanced Directives/POLST- DO NOT RESUSCITATE/DO NOT INTUBATE. Will plan on assisting in completing POLST prior to discharge. -Family/emotional support- palliative will continue to follow and provide support Additional Medical Diagnoses with primary management by Hospitalist team include : Systolic congestive heart failure with reduced ejection fraction, acute, present on admission Acute Kidney Injury, POA, Active. Acute mild hypotension, present on admission Coronary Artery Disease, Chronic, POA, Active. Chronic Normocytic Anemia, POA, Stable H/o GERD, Chronic, Stable Acute Respiratory Failure, POA, resolved Problems: End of Life Preferences DO NOT RESUSCITATE/DO NOT INTUBATE Goals of Care Optimize quality of time remaining Disposition Home Resuscitation Status Resuscitation Status: DNR/DNI:Do Not Resuscitate/Intubate Limited Interventions: BiPAP, Medications and IV Fluid POLST Updates/Changes Previous POLST?: No Artificially Admin Nutrition: No Artifical Nutrition by Tube POLST Discussed with: Patient POLST Review Outcome: New Form Completed . Advanced Care Planning Address: POLST, Comfort care Symptom management: Dyspnea, Pain Total time 20 minutes; >50% face to face with patient and/or family, providing counselling regarding plans and recommendations, and in care coordination with his/her medical teams. primarily in review of GOC and POLST form I also spent an additional [ ] minutes counseling for advanced care planning with the patient/the patients family/the surrogate decision maker. copies to: Sera Reyna MD Palliative Brief Note Date of Service Feb 25, 2017 . Patient seen in follow up with his and son present. Admitted with known ASCAD s/p stents, EF 15-20% and SOB He is dressed and anxious to go home. He is up in a chair with neoprene sleeve on R knee. Denies pain or SOB in his room O: lungs clear no edema CN=, alert, mentally astute walks with out assist Ailyn Strickland MD Feb 25, 2017 19:43
== END 2017-02-25 10:00 | disposition hospice, home (50) | DRG 291 ==
LOC: SED 18:53 → PCC 21:36 → OBSVTOIN 21:36 → PCC 22:12
PROVIDERS: ADMIT Hospitalist; ATTEND Internal Medicine
DX: I50.21 Acute systolic (congestive) heart failure (principal); J96.00 Acute respiratory failure, unspecified whether with hypoxia or hypercapnia; N17.9 Acute kidney failure, unspecified; R64 Cachexia; M35.3 Polymyalgia rheumatica; I35.0 Nonrheumatic aortic (valve) stenosis; M06.9 Rheumatoid arthritis, unspecified; I25.10 Atherosclerotic heart disease of native coronary artery without angina pectoris; N14.1 Nephropathy induced by other drugs, medicaments and biological substances; I10 Essential (primary) hypertension; E78.5 Hyperlipidemia, unspecified; I07.1 Rheumatic tricuspid insufficiency; T50.8X5A Adverse effect of diagnostic agents, initial encounter; I25.5 Ischemic cardiomyopathy; Z51.5 Encounter for palliative care; Z66 Do not resuscitate; Z68.24 Body mass index [BMI] 24.0-24.9, adult; Z95.5 Presence of coronary angioplasty implant and graft; Z79.82 Long term (current) use of aspirin; Z87.891 Personal history of nicotine dependence